=== PATIENT | female | born 1940 | race Caucasian/White ===

== ENCOUNTER 2020-09-05 00:36 | Emergency (ER) | payer MEDICARE, MEDICAID, SELFPAY ==
[2020-09-05 00:42] VITALS: BP 126/68; PULSE 96; RESP 16; O2SAT 96; BMI 24.5
--- NOTE | 2020-09-05 00:46 | ECG_ITS ---
Test Reason : FALL Blood Pressure : / mmHG Vent. Rate : 097 BPM Atrial Rate : 097 BPM P-R Int : 218 ms QRS Dur : 084 ms QT Int : 372 ms P-R-T Axes : 050 003 052 degrees QTc Int : 472 ms Sinus rhythm with 1st degree A-V block Otherwise normal ECG When compared with ECG of 16-JUN-2016 14:58, IN interval has increased Referred By: Karla Houston Electronically Signed By:ALISON JHA
--- NOTE | 2020-09-05 00:46 | XR_ITS ---
EXAMINATION: XR SHOULDER, RIGHT CLINICAL INFORMATION: Fall COMPARISON: None TECHNIQUE: Three views of the right shoulder. FINDINGS: Glenohumeral alignment is anatomic. No acute fracture is seen. Acromioclavicular joint is intact. XR/XR shoulder RT min 2V IMPRESSION: No acute findings.
--- NOTE | 2020-09-05 00:46 | XR_ITS ---
EXAMINATION: XR WRIST, RIGHT CLINICAL INFORMATION: Fall COMPARISON: None TECHNIQUE: PA, lateral, and oblique views of the right wrist. FINDINGS: There is a mildly impacted fracture of the distal radius with dorsal angulation. Intra-articular extension cannot be excluded. Surrounding soft tissue swelling is present. Articular alignment across the wrist appears maintained. XR/XR wrist RT min 3V IMPRESSION: Mildly impacted and angulated fracture of the distal radius with surrounding soft tissue swelling.
--- NOTE | 2020-09-05 00:46 | CT_ITS ---
EXAMINATION: NONCONTRAST HEAD CT NONCONTRAST CERVICAL SPINE CT INDICATION INFORMATION: Fall COMPARISON: 06/16/2016 TECHNIQUE: Separate noncontrast CT examinations of the head and cervical spine were performed. Coronal head CT images and coronal and sagittal cervical spine images were created at the technologist workstation. DLP: 854 mGy-cm DOSE LOWERING TECHNIQUES: This CT examination was performed using dose optimization techniques as appropriate, variously including the following: - Automated exposure control - Adjustment of mA and/or kV according to patient size (this includes techniques or standardized protocols for targeted exams were dose is matched to indication/reason for exam; i.e. extremities or head) - Use of iterative reconstruction technique FINDINGS: Head: There is no evidence of acute intracranial hemorrhage or territorial infarction. No abnormal mass-effect or midline shift is seen. Manriquez to white matter differentiation is well preserved. No extra-axial fluid collections are identified. The ventricles are normal in size. There is mild periventricular white matter hypoattenuation consistent with chronic small vessel ischemic disease. Mild volume loss is noted. The osseous structures and soft tissues are normal. The mastoid air cells and visualized portions of the paranasal sinuses are well-aerated. Cervical spine: There is grade 1 anterolisthesis of C3 on C4 and grade 1 retrolisthesis of C5 on C6 is an C6 on C7, favored to be chronic/degenerative in nature. There is disc space narrowing of the mid to lower cervical spine with associated endplate osteophytes. Mild multilevel facet arthropathy is present. Vertebral body heights are maintained. No evidence of acute fracture. No prevertebral soft tissue swelling. The included thyroid gland is unremarkable. CT/CT cervical spine wo con IMPRESSION: 1. Head: No acute intracranial findings. 2. Cervical spine: No acute findings identified. Degenerative changes as described above.
--- NOTE | 2020-09-05 00:46 | XR_ITS ---
EXAMINATION: XR HUMERUS, RIGHT CLINICAL INFORMATION: Fall COMPARISON: None TECHNIQUE: AP and lateral views of the right humerus. FINDINGS: Alignment appears anatomic. No acute fracture is seen. No appreciable soft tissue abnormality. XR/XR humerus RT IMPRESSION: No acute findings.
--- NOTE | 2020-09-05 00:47 | ED_ITS ---
HPI - Fall General Chief Complaint: Fall Stated Complaint: fall Time Seen by Provider: 09/05/20 00:46 Source: patient and EMS Mode of arrival: EMS Limitations: other (ETOH and agitation) History of Present Illness HPI Narrative: + ETOH 79 year old female c/o fall not sure how reports I think I blacked out has bruising to R forehead no AC therapy and c/o R upper arm and R wrist pain which is her dominant side, no other injuries reported MD complaint: fall Onset (ago): hour(s) (not sure but sometime tonight per her) Fall from: standing Place fall occurred: home Loss of consciousness: unsure Prolonged down time: unclear Symptoms prior to fall: none Location of injury: head and face Location of injury - extremities: right: arm and forearm Severity: moderate Quality: dull Associated symptoms (after fall): denies Related Data Previous Rx's Medication Instructions Recorded hydrocodone-acetaminophen 1 tab PO Q6H PRN #15 tab 09/05/20 Allergies Allergy/AdvReac Type Severity Reaction Status Date / Time alendronate sodium [Fosamax] Allergy Unknown Verified 05/16/19 00:00 ciprofloxacin [Cipro] AdvReac Unknown blister Verified 05/16/19 00:00 lisinopril AdvReac Unknown throat Verified 05/16/19 00:00 swelling, cough From CIPRO Allergy Unknown BLISTERS Uncoded 04/30/20 14:34 IN MOUTH From ELAVIL AdvReac Unknown HALLUCINATI Uncoded 04/30/20 14:34 ONS Review of Systems Review of Systems: Constitutional : No Fever, No Chills ENT/Mouth : No Ear Pain, No Hoarseness, No sore throat Eyes: No Eye Pain, No Swelling, No Redness, No Foreign Body Cardiovascular : No Chest Pain, No SOB Respiratory : No Cough, No Dyspnea Gastrointestinal : No Nausea, No Vomiting, No Diarrhea, No abdominal Pain Genitourinary : No Dysuria, No Hematuria Musculoskeletal : positive joint pain, No Myalgias, No Joint Swelling Skin : No Skin lacerations, No rash Neuro : No Weakness, No Numbness, No Loss of Consciousness, No Dizziness, No Headache Psych : No Anxiety/Panic, No Depression Heme/Lymph: no easy bruising, no Lymphadenopathy Endocrine : No Polyuria, No Polydipsia All other systems reviewed and are negative PMFSH Past Medical History Medical History (Updated 09/05/20 @ 03:18 by Karla Houston DO) Anxiety Surgical History (Updated 09/05/20 @ 00:50 by Karla Houston DO) H/O: hysterectomy Social History Social History (Updated 09/05/20 @ 00:50 by Karla Houston DO) Alcohol intake: current Alcohol intake frequency: 0-2 drinks per day Alcohol type: hard liquor Smoking Status: Current every day smoker Smoked in Last 30 Days: Yes Use of substances other than those prescribed or required for medical reasons: No Advance Directives: No Advance Directives Information Provided: No Physical Exam Vital Signs: Vital Signs: Last Vital Signs Pulse 96 09/05/20 00:56 Resp 16 09/05/20 00:56 BP 126/68 09/05/20 00:56 Pulse Ox 96 09/05/20 00:56 Body Mass Index 24.5 Appearance: Alert. Oriented X3. No acute distress. ETOH odor, intermittent agitation Eyes: Pupils equal, round and reactive to light. ENT: Pharynx normal. contusion to R forehead and R eyebrow Neck: Normal inspection. Neck supple. CVS: Normal heart rate and rhythm. Pulses normal. Respiratory: No respiratory distress. Breath sounds normal. Abdomen: Soft and nontender. Skin: Skin warm and dry. Normal skin color. Normal skin turgor. Extremities: No lower extremity edema. No calf ttp no pain with ROM of LE, álvaro n at R wrist with deformity - NV intact, ttp along R humerus Neuro: Oriented X 3. No motor deficit. No sensory deficit. Course Course Course Narrative: GCS 15 likely fall due to ETOH intoxication - offered rehab but she refused. awake and alert, not toxic, clinically sober, unsteady gait - PATIENT finally agrees to rehab signed out pending PT/CM Procedures Orthopedic Splinting/Casting Injury #1: Side: right Upper Extremity Injury Location: wrist Upper Extremity Immobilizer: sling/shoulder immobilizer and sugar tong splint Additional Comments: NV intact post splint MDM - Fall MDM Narrative Medical decision making narrative: 79 yo female with ETOH tonight comes in after fall unsure of events - at this time has contusions to head and R wrist def ormity - will need labs, EKG, CT head/neck for trauma given age and ETOH, xrays of RUE - NV intact, suspect she will need reduction as well in ED Lab Data Result diagrams: 09/05/20 02:25 09/05/20 02:25 Labs: Lab Results 09/05/20 09/05/20 09/05/20 Range/Units 02:25 02:25 02:26 WBC 6.9 (4.8-10.8) X10*3/uL RBC 4.82 (4.20-5.50) X10*6/uL Hgb 16.3 H (12.0-16.0) g/dl Hct 46.8 (37-47) % MCV 97.1 (80-98) fL MCH 33.8 H (27.0-33.0) pg MCHC 34.8 (31.0-35.0) g/dl RDW 13.2 (11.0-16.0) % Plt Count 177 (160-400) X10*3/uL MPV 10.1 (9.4-12.3) fL Immature Gran % (Auto) 0.3 (0.0-0.4) % Neut % (Auto) 75.4 H (45-73) % Lymph % (Auto) 16.3 L (20-40) % Bladen % (Auto) 7.0 (2-11) % Eos % (Auto) 0.6 (0-4) % Baso % (Auto) 0.4 (0-2) % Lymph # (Auto) 1.1 L (1.2-4.9) X10*3/uL Bladen # (Auto) 0.5 (0.1-1.2) X10*3/uL Eos # (Auto) 0.0 (0.0-0.4) X10*3/uL Baso # (Auto) 0.0 (0.0-0.2) X10*3/uL Abs Immat Gran (auto) 0.02 (0.00-0.03) X10*3/uL Absolute Neuts (auto) 5.2 (2.0-8.3) X10*3/uL Absolute Nucleated RBC 0.000 (0.0-0.012) X10*3/uL Nucleated RBC % (auto) 0.0 (0.0-0.2) /100WBC PT (10.8-13.0) SEC INR (0.9-1.1) APTT (24.1-38.0) SEC Sodium 134 L (135-145) mmol/L Potassium 4.1 (3.3-5.1) mmol/l Chloride 98 (96-108) mmol/L Carbon Dioxide 22 (22-29) mmol/L Anion Gap 18 (12-20) BUN 7 L (9-16) mg/dL Creatinine 0.71 (0.5-1.4) mg/dL Estim Creat Clear Calc 53.8 Estimated GFR > 60 Random Glucose 93 (60-115) mg/dL Calcium 9.1 (8.4-10.2) mg/dL Magnesium 2.4 (1.6-2.6) mg/dL Total Bilirubin 0.6 (0.0-1.0) mg/dL Direct Bilirubin 0.3 (0.0-0.5) mg/dL AST 43 H (5-31) U/L ALT 31 (0-31) U/L Alkaline Phosphatase 95 (39-117) U/L Total Creatine Kinase 114 (26-140) U/L Troponin I High Sens (<3.5-17.0) ng/L Total Protein 7.9 (6.5-8.0) g/dL Albumin 4.1 (3.5-5.0) g/dL Ethyl Alcohol 115 mg/dL 09/05/20 09/05/20 Range/Units 02:26 02:26 WBC (4.8-10.8) X10*3/uL RBC (4.20-5.50) X10*6/uL Hgb (12.0-16.0) g/dl Hct (37-47) % MCV (80-98) fL MCH (27.0-33.0) pg MCHC (31.0-35.0) g/dl RDW (11.0-16.0) % Plt Count (160-400) X10*3/uL MPV (9.4-12.3) fL Immature Gran % (Auto) (0.0-0.4) % Neut % (Auto) (45-73) % Lymph % (Auto) (20-40) % Bladen % (Auto) (2-11) % Eos % (Auto) (0-4) % Baso % (Auto) (0-2) % Lymph # (Auto) (1.2-4.9) X10*3/uL Bladen # (Auto) (0.1-1.2) X10*3/uL Eos # (Auto) (0.0-0.4) X10*3/uL Baso # (Auto) (0.0-0.2) X10*3/uL Abs Immat Gran (auto) (0.00-0.03) X10*3/uL Absolute Neuts (auto) (2.0-8.3) X10*3/uL Absolute Nucleated RBC (0.0-0.012) X10*3/uL Nucleated RBC % (auto) (0.0-0.2) /100WBC PT 12.8 (10.8-13.0) SEC INR 1.1 (0.9-1.1) APTT 38.5 H (24.1-38.0) SEC Sodium (135-145) mmol/L Potassium (3.3-5.1) mmol/l Chloride (96-108) mmol/L Carbon Dioxide (22-29) mmol/L Anion Gap (12-20) BUN (9-16) mg/dL Creatinine (0.5-1.4) mg/dL Estim Creat Clear Calc Estimated GFR Random Glucose (60-115) mg/dL Calcium (8.4-10.2) mg/dL Magnesium (1.6-2.6) mg/dL Total Bilirubin (0.0-1.0) mg/dL Direct Bilirubin (0.0-0.5) mg/dL AST (5-31) U/L ALT (0-31) U/L Alkaline Phosphatase (39-117) U/L Total Creatine Kinase (26-140) U/L Troponin I High Sens < 3.5 (<3.5-17.0) ng/L Total Protein (6.5-8.0) g/dL Albumin (3.5-5.0) g/dL Ethyl Alcohol mg/dL ECG Data Attestation: I personally reviewed and interpreted this ECG as follows: ECG interpretation date: 09/05/20 ECG interpretation time: 01:12 Interpretation: Rate: 97 Rhythm: NSR with 1st degree AVB [place]: left Normal P waves. 1st degree AVB Normal QRS complex. ST T wave : normal, no JEANNINE qTC: normal prior studies: no acute ischemia The study has been interpreted contemporaneously by me. . Discharge Plan Discharge Clinical Impression: Fracture of wrist, Fall, Alcohol intoxication Instructions: Wrist Fracture in Adults (ED) Additional Instructions: return to ED for any worsening symptoms or concerns wear splint and sling until released Prescriptions: New hydrocodone-acetaminophen 5-325 mg tablet 1 tab PO Q6H PRN (Reason: pain) Qty: 15 RF: 0 Referrals: Jason Galvan PA-C [Phys[facility]] - 1 week
--- NOTE | 2020-09-05 00:47 | XR_ITS ---
EXAMINATION: XR CHEST CLINICAL INFORMATION: Fall COMPARISON: 06/16/2016 TECHNIQUE: Frontal view of the chest was obtained. FINDINGS: Lung volumes are symmetric. No focal consolidation is seen. No evidence of pneumothorax, pleural effusion, or pulmonary edema. The cardiomediastinal contour is unremarkable. No acute osseous findings are seen. XR/XR chest 1V IMPRESSION: No acute cardiopulmonary findings.
[2020-09-05 00:56] VITALS: BP 126/68; PULSE 96; RESP 16; O2SAT 96
[2020-09-05 02:32] LABS: MANUAL DIFF FLAG NO
[2020-09-05 02:33] LABS: Basophils Percent Auto 0.4 % (0-2); Eosinophils Percent Auto 0.6 % (0-4); Hematocrit 46.8 % (37-47); Hemoglobin 16.3 g/dl (12.0-16.0); Imm Gran Abs Auto 0.02 X10*3/uL (0.00-0.03); Imm Gran Pct Auto 0.3 % (0.0-0.4); Lymphocytes Absolute Auto 1.1 X10*3/uL (1.2-4.9); Lymphocytes Percent Auto 16.3 % (20-40); Mean Corpuscular HGB Conc 34.8 g/dl (31.0-35.0); Mean Corpuscular Hemoglobin 33.8 pg (27.0-33.0); Mean Corpuscular Volume 97.1 fL (80-98); Mean Platelet Volume 10.1 fL (9.4-12.3); Monocytes Absolute Auto 0.5 X10*3/uL (0.1-1.2); Neutrophils Absolute Auto 5.2 X10*3/uL (2.0-8.3); Neutrophils Percent Auto 75.4 % (45-73); Platelet Count 177 X10*3/uL (160-400); Red Blood Count 4.82 X10*6/uL (4.20-5.50); Red Cell Distribution Width 13.2 % (11.0-16.0); White Blood Count 6.9 X10*3/uL (4.8-10.8)
[2020-09-05 02:38] LABS: INTERNATIONAL NORM RATIO 1.1 (0.9-1.1); Prothrombin Time 12.8 SEC (10.8-13.0)
[2020-09-05 02:41] LABS: Partial Thromboplastin Time 38.5 SEC (24.1-38.0)
[2020-09-05 02:59] LABS: Alanine Aminotransferase 31 U/L (0-31); Albumin Level 4.1 g/dL (3.5-5.0); Alkaline Phosphatase 95 U/L (39-117); Anion Gap 18 (12-20); Aspartate Amino Transferase 43 U/L (5-31); Bilirubin Direct 0.3 mg/dL (0.0-0.5); Bilirubin Total 0.6 mg/dL (0.0-1.0); Blood Urea Nitrogen 7 mg/dL (9-16); Calcium 9.1 mg/dL (8.4-10.2); Carbon Dioxide 22 mmol/L (22-29); Chloride 98 mmol/L (96-108); Creatinine Clr Calc Pharmacy 53.8; Estimated Glomerular Filt Rate > 60; Glucose Random 93 mg/dL (60-115); Magnesium 2.4 mg/dL (1.6-2.6); Potassium 4.1 mmol/l (3.3-5.1); Sodium 134 mmol/L (135-145); Total Protein 7.9 g/dL (6.5-8.0)
[2020-09-05 03:02] LABS: Troponin-I High Sensitivity < 3.5 ng/L (<3.5-17.0)
[2020-09-05 03:17] LABS: Ethanol 115 mg/dL
--- NOTE | 2020-09-05 07:28 | PC.NURSE ---
report taken from ozzie gregory pt uncomfortable in stretcher, assisted to bedside commode for void. pt sling assessed for comfort, readjusted. pt c/o pain and anxiety, consulted w md about meds. pt appears to not have had imaging post splinting of wrist, dr stanford at bedside for eval. plan for ortho consult and inpt admission. medicated per emar. pt ate breakfast w assistance.
[2020-09-05] MEDS: ALPRAZolam 0.5 MG TABLET PO (07:32)
[2020-09-05] MEDS: oxyCODONE HCl Immed Release 5 MG TABLET PO (07:32)
[2020-09-05] MEDS: Lidocaine HCl 2 % MPF 5 ML VIAL 10 ML INFILTRATI (08:25)
--- NOTE | 2020-09-05 08:34 | XR_ITS ---
EXAMINATION: XR WRIST, RIGHT CLINICAL INFORMATION: Wrist fracture status post reduction. COMPARISON: Prereduction radiograph done earlier today. TECHNIQUE: 2 views, 3 images of the right wrist were obtained. FINDINGS: Moderate diffuse osteopenia is noted. Comminuted the fracture involving the right distal radius is reidentified. Compared to prior prereduction radiographs, there is slight interval improved dorsal angulation present. No other significant interval change. No new abnormalities. XR/XR hand wrist RT IMPRESSION: Mild interval improvement of dorsal angulation at the site of the comminuted fracture involving the distal radius as compared to prior prereduction radiograph done earlier today. No other significant interval change.
--- NOTE | 2020-09-05 08:53 | PC.NURSE ---
pt splint removed, wrist fracture reduced by dr stanford at bedside. post reduction imaging at bedside, pt seen by phys tx. splint reapplied by this rn and dr stanford.
--- NOTE | 2020-09-05 09:37 | MHC.CM.ED ---
Received case management consult overnight. Patient came to ER after a fall. Found to have a wrist fracture. Physical therapy eval completed. Home therapy is recommended. Met with patient in regards to discharge planning. Patient lives alone, ambulates with a cane for long distances and receives home making help through [facility]. PCP verbalized as Vijay Serrano. Patient states she has a HCP but doesn't know where a copy of it is. New HCP offered to be completed. Patient declined at this time. Patient requesting referrals to [facility]. Referral made via [employer]. Spoke with patient's son-in-law, Ricki via telephone at [phone]. He will come to ER around 10:30am to transport patient home. Patient, Dr Lopez, and Wenceslao BENNETT aware. Continue to monitor for d/c needs.
[2020-09-05 10:11] VITALS: BP 126/68; PULSE 96; O2SAT 96
== END 2020-09-05 10:37 | disposition home or self-care (01) ==
PROVIDERS: Emergency Provider Emergency Medicine; PCP Nurse Practitioner Family
DX: S62.101A Fracture of unspecified carpal bone, right wrist, initial encounter for closed fracture (principal); M25.531 Pain in right wrist; M79.601 Pain in right arm; M54.2 Cervicalgia; M79.641 Pain in right hand; R07.89 Other chest pain; G44.309 Post-traumatic headache, unspecified, not intractable; M25.511 Pain in right shoulder; W01.0XXA Fall on same level from slipping, tripping and stumbling without subsequent striking against object, initial encounter; Y93.9 Activity, unspecified; Y92.9 Unspecified place or not applicable; Y99.9 Unspecified external cause status; F17.200 Nicotine dependence, unspecified, uncomplicated; Z71.6 Tobacco abuse counseling
CPT/HCPCS: 29105; 36415; 70450; 71045; 72125; 73030; 73060; 73110; 73130; 80048; 80076; 80320; 82550; 83735; 84484; 85025; 85610; 85730; 93005; 97162; 99284

== ENCOUNTER → 2020-09-11 13:18 | Outpatient (BNVA) | payer OTHER, MEDICAID, SELFPAY | PROVIDERS: PCP Internal Medicine; Visit Provider Physician Assistant | DX: Z13.89 Encounter for screening for other disorder (principal) | CPT/HCPCS: 99202 ==

== ENCOUNTER 2020-09-16 11:15 | Day surgery (SDC) | payer OTHER, MEDICAID, SELFPAY ==
[2020-09-16 07:53] VITALS: BMI 24.2
[2020-09-16 11:27] VITALS: BP 158/74; PULSE 90; RESP 20; TEMP 36.4; O2SAT 95; BMI 23.1
--- NOTE | 2020-09-16 13:32 | HO.ANESPROP2 ---
HPI - Anesthesia Eval Consult details Narrative: 79yo female patient here for ORIF of fracture Right Distal Radius PMFSH Past Medical History Medical History Alcohol use disorder Anxiety Distal radius fracture, right Essential hypertension Hyperlipidemia Osteoporosis Right patella fracture Smoker Family History Family history of problems with anesthesia: No Surgical History Surgical History H/O right knee surgery H/O: hysterectomy History of Problems with Anesthesia: No Social History Social History (Updated 09/16/20 @ 14:20 by Faith Torrez) Alcohol intake: current Alcohol intake frequency: 0-2 drinks per day Alcohol type: hard liquor Smoking Status: Current every day smoker Smoked in Last 30 Days: Yes Use of substances other than those prescribed or required for medical reasons: No Have you been hit, kicked, punched, or otherwise hurt by someone within the past year? 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 Allergies Allergy/AdvReac Type Severity Reaction Status Date / Time alendronate sodium [Fosamax] Allergy Unknown Verified 05/16/19 00:00 ciprofloxacin [Cipro] AdvReac Unknown blister Verified 05/16/19 00:00 lisinopril AdvReac Unknown throat Verified 05/16/19 00:00 swelling, cough From CIPRO Allergy Unknown BLISTERS Uncoded 04/30/20 14:34 IN MOUTH From ELAVIL AdvReac Unknown HALLUCINATI Uncoded 04/30/20 14:34 ONS Home Medications Medication Instructions Recorded Confirmed Type amlodipine 5 mg tablet 5 mg PO DAILY 09/09/20 09/09/20 History atorvastatin 10 mg tablet 10 mg PO DAILY 09/09/20 09/09/20 History calcium carbonate 600 mg calcium 600 mg PO DAILY 09/09/20 09/09/20 History (1,500 mg) tablet alprazolam [Xanax] 0.5 mg PO BID PRN 09/16/20 09/16/20 History naproxen sodium [Aleve] 220 mg PO Q12H PRN 09/16/20 09/16/20 History Exam Pertinent Lab Results Pertinent Lab Results: Labs reviewed. 12 lead EKG 09/05/2020: Sinus rhythm with 1st degree A-V block Otherwise normal ECG When compared with ECG of 16-JUN-2016 14:58, UT interval has increased Airway Mallampati Class: III TM Dist: >3cm Neck ROM: Full Loose/Missing/Broken Teeth: No Heart: RRR Lungs: CTAB Assessment and Plan Assessment Anesthesia Assessment: Anesthesia Plan Discussed and Chart Reviewed Final Anesthetic Review NPO: Yes ASA Class: III Final Preanesthetic Review: No Changes in Pt Med Stat, Meds/Allgs Chart Reviewed, Consent Obtained/Reviewed and Anes Risks/Benef Reviewed Patient Risk: Intermediate Procedure Risk: Low Assessment/Block/Sedation in SS: Assess/Block/Sedation-SS Anesthetic Plan Anesthetic Plan: GA Disposition: Standard PACU
--- NOTE | 2020-09-16 14:14 | FL_ITS ---
EXAMINATION: XR FLUOROSCOPY WITH IMAGES CLINICAL INFORMATION: ORIF right distal radius fracture COMPARISON: Right wrist x-ray 09/05/2020 TECHNIQUE: Fluoroscopy performed by Martina. Fluoroscopy time: 22 seconds DAP: 0.03 Gycm2 Images: 2 FINDINGS: There is a volar plate plate and screws transfixing the right distal radius fracture with improved alignment. FL/FL guidance in OR IMPRESSION: Fluoroscopic guidance for ORIF of right distal radius fracture.
--- NOTE | 2020-09-16 14:24 | MHC.SHP ---
Pre-Procedural Eval Section B Chief Complaint: radius fx Allergies: Allergies Allergy/AdvReac Type Severity Reaction Status Date / Time alendronate sodium [Fosamax] Allergy Unknown Verified 05/16/19 00:00 ciprofloxacin [Cipro] AdvReac Unknown blister Verified 05/16/19 00:00 lisinopril AdvReac Unknown throat Verified 05/16/19 00:00 swelling, cough From CIPRO Allergy Unknown BLISTERS Uncoded 04/30/20 14:34 IN MOUTH From ELAVIL AdvReac Unknown HALLUCINATI Uncoded 04/30/20 14:34 ONS Plan I have reviewed the history and physical and performed a pertinent physical examination on my patient. No changes have occurred unless specified.
[2020-09-16 16:17] VITALS: BP 156/80; PULSE 84; RESP 16; TEMP 36.7; O2SAT 98
[2020-09-16 16:22] VITALS: BP 157/70; PULSE 84; RESP 16; O2SAT 95
[2020-09-16 16:27] VITALS: BP 155/72; PULSE 88; RESP 16; O2SAT 94
[2020-09-16 16:32] VITALS: BP 127/91; PULSE 87; RESP 18; O2SAT 93
[2020-09-16 16:45] VITALS: BP 161/85; PULSE 86; RESP 16; O2SAT 94
--- NOTE | 2020-09-16 17:01 | P.OP_ITS ---
Operative Note Operative Note Date of Service: 09/16/20 Narrative: Operative Note Narrative: Preop diagnosis: 1. Right Distal radius fracture Postop diagnosis: Same Procedure: 1. Right Distal radius fracture open reduction internal fixation, extra-articular Surgeon: Geri Mack MD Anesthesia: Mac plus regional block Findings: Right distal radius metaphyseal fracture Implants: A 3 hole Accu Med volar locking plate, with four 2.3 mm locking pegs/screws, and 3 3.5 mm cortical screws Tourniquet time: 44 minutes EBL: 5.0 ml Specimen: None Drains: None Complications: None Disposition: Brought to the recovery room in stable condition Plan: Follow-up in 10-14 days for wound check, suture removal and postop radiographs The patient will be placed in either a short-arm cast or a volar wrist splint. Encouraged no lifting of anything heavier than a cell phone. Please encourage active and passive range of motion of the digits. Follow-up at 4-5 weeks postop for repeat radiographs. Indications: The patient is a 79 year old woman with a displaced right distal radius fracture . The risks and benefits of operative treatment, including but not limited to risk of damage to blood vessels, nerves, tendons, infection, recurrence, persistent pain or numbness, incomplete resolution of preoperative symptoms, or need for further surgery were discussed with the patient and they wished to proceed with surgery. Procedure: Once consent was obtained patient was brought back to the operating suite and placed in the operating table in a supine position. . Perioperative antibiotics and anesthesia was administered by the anesthesia team. A tour niquet was applied to the proximal aspect of the right upper extremity and the limb was prepped and draped in a standard surgical fashion. The limb was elevated exsanguinated with Esmarch bandage and the tourniquet inflated to 250 mm of mercury for a total tourniquet time of 44 minutes. The FluoroScan was used throughout the case to assess our reduction, and facilitate implant placement. A gentle closed reduction was 1st performed on the patient's right distal radius fracture. Was assessed radiographically before proceeding with the reduction internal fixation. I then made an 8 cm longitudinal incision over the distal aspect of the flexor carpi radialis tendon. The incision was made through the skin to the subcutaneous tissue using a 15. Blade. Then carefully dissected down to flexor carpi radialis tendon she tenotomy scissors. The FCR tendon sheath was then incised longitudinally using tenotomy scissors under direct visualization. The FCR tendon was then retracted ulnarly. I then made a longitudinal incision in the volar forearm fascia through the floor of FCR tendon sheath using tenotomy scissors under direct visualization. I identified the interval between the radial artery and the flexor tendons. This interval was developed further with my index finger, releasing some of the muscular fibers of the flexor pollicis longus. A dull weatlander retractor was then placed. I then created an ulnarly based flap of the pronator quadratus by releasing the radial and distal edges using a 15. Blade. A Witt elevator was used to elevate the pronator quadratus from the volar surface of the distal radius. This then revealed to us our distal radius fracture. An open reduction was then performed on our distal radius fracture. I then placed a short narrow 3 hole Accu Med volar locking plate on the volar surface of the distal radius. I placed a single K-wire through the distal aspect of the plate and into the distal radius. This was assessed using fluoroscopic images. I was satisfied with the placement of our plate. I then placed four 2.3 mm locking screws/pegs in the distal aspect of the plate and distal radius by 1st drilling bicortically with a 1.5 mm drill bit, measuring with a depth gauge, and placing the appropriate length locking screws/pegs. The placement of our plate and screws was then assessed again using fluoroscopic images. The once sa tisfied with the placement of the volar locking plate and screws on the distal aspect of the distal radius, the plate was then reduced to the shaft of the radius. I then placed 3 3.5 mm cortical screws to the proximal aspect of the plate and into the shaft of the radius. This was done by 1st drilling bicortically with a 2.5 mm drill bit, measuring with a depth gauge, and placing the appropriate length screw. Final radiographs were then obtained. The DRUJ was assessed and found to be stable on exam. I was satisfied with our reduction and placement of all implants. At this point the wound was irrigated with normal saline. The pronator quadratus was reduced back over the volar locking plate using some 3-0 Vicryl suture material. The tourniquet was then deflated and hemostasis was obtained with a brief period of local pressure and bipolar monopolar electrocautery. The subcutaneous layer was then reapproximated using some 4-0 Vicryl suture, and the skin edges were reapproximated using some 5 0 Prolene suture. The wound was then infiltrated with some 1% lidocaine with epinephrine postop pain control. A sterile dressing and a short dorsal splint allowing for active flexion and extension of the digits was applied. The patient appears to have tolerated the procedure well and with no complications. All digits were well vascularized conclusion of the case.
--- NOTE | 2020-09-16 17:04 | PC.NURSE ---
1650 REQ TO USE BR MONITORS DCD ASST OOB 2 RNS TO TR TO WC STS SHE HAS DIZZY SPELLS AND THATS WHAT HAPPENED TO HER AT HOME FOR THE BREAK IN HER ARM. PT CONTINUES TO TALK NONSTOP TO BR ASST ONTO TOILET 1 RN
--- NOTE | 2020-09-16 17:29 | PC.NURSE ---
1700 VOID CL YELLOW URINE BR ASST WITH HAND HYGIENE TR TO WC RET TO PACU 11 TOTAL CLOTHING CHANGE BY THIS RN AND IV DC. DR NGUYỄN IN AT 1720 SPEAKING TO PT RE CARE OF SPLINT ICE ETC, 2 ICE PACKS GIVEN TO GO PT INSTR TO TAKE HER LISINOPRIL WHEN SHE GETS HOME. PT STS SHE RARELY TAKES IT.
== END 2020-09-16 17:30 | disposition home or self-care (01) ==
PROVIDERS: Visit Provider Orthopaedic Surgery
PROC: (CPT 25607; principal; 2020-09-16 12:40)
DX: S52.551A Other extraarticular fracture of lower end of right radius, initial encounter for closed fracture (principal); W01.0XXA Fall on same level from slipping, tripping and stumbling without subsequent striking against object, initial encounter; Y93.01 Activity, walking, marching and hiking; Y92.008 Other place in unspecified non-institutional (private) residence as the place of occurrence of the external cause; Y99.8 Other external cause status; F41.9 Anxiety disorder, unspecified; Z72.89 Other problems related to lifestyle; I10 Essential (primary) hypertension; M81.0 Age-related osteoporosis without current pathological fracture; F17.210 Nicotine dependence, cigarettes, uncomplicated; E78.5 Hyperlipidemia, unspecified; Z79.899 Other long term (current) drug therapy; Z88.1 Allergy status to other antibiotic agents; Z88.8 Allergy status to other drugs, medicaments and biological substances
CPT/HCPCS: 25607; C1713; C1769; J0690; J1100; J1170; J2370; J2405; J3010

== ENCOUNTER 2020-09-30 12:43 | Outpatient (REF) | payer OTHER, MEDICAID, SELFPAY ==
--- NOTE | ~2020-09-30 | XR_ITS ---
EXAMINATION: XR WRIST, RIGHT CLINICAL INFORMATION: Right wrist pain. COMPARISON: Right wrist radiographs dated 09/05/2020. TECHNIQUE: PA, lateral, and oblique views of the right wrist. FINDINGS: The patient is status post distal radial ORIF showing good anatomic alignment with no evidence for hardware malfunction. The carpal bones are normally aligned. The distal ulna is intact. There is mild soft tissue swelling. XR/XR wrist RT min 3V IMPRESSION: Good anatomic alignment without hardware abnormality. Soft tissue swelling.
== END 2020-09-30 12:44 | disposition home or self-care (01) ==
LOC: HO.HOSX 12:43
PROVIDERS: Visit Provider Orthopaedic Surgery
DX: S52.501A Unspecified fracture of the lower end of right radius, initial encounter for closed fracture (principal); F17.200 Nicotine dependence, unspecified, uncomplicated
CPT/HCPCS: 73110

== ENCOUNTER 2020-10-26 12:14 | Outpatient (REF) | payer OTHER, MEDICAID, SELFPAY ==
--- NOTE | ~2020-10-26 | XR_ITS ---
EXAMINATION: XR WRIST, RIGHT CLINICAL INFORMATION: Follow-up fracture COMPARISON: Previous x-ray most recent 09/30/2020 TECHNIQUE: PA, lateral, and oblique views of the right wrist. FINDINGS: There is a volar plate and screws transfixing the left distal radius fracture. Orthopedic hardware appears unchanged. Fracture lines are still seen. Bone alignment is unchanged. There are mild degenerative changes at the first [facility] joint. Carpal bones are otherwise normal. Soft tissues are normal. XR/XR wrist RT min 3V IMPRESSION: ORIF of right distal radius fracture. No change from 09/30/2020 exam.
== END 2020-10-26 12:15 | disposition home or self-care (01) ==
LOC: HO.HOSX 12:14
PROVIDERS: Visit Provider Orthopaedic Surgery
DX: M25.531 Pain in right wrist (principal); S52.501A Unspecified fracture of the lower end of right radius, initial encounter for closed fracture; X58.XXXA Exposure to other specified factors, initial encounter; Y93.9 Activity, unspecified; Y92.9 Unspecified place or not applicable; Y99.8 Other external cause status; M81.0 Age-related osteoporosis without current pathological fracture; I10 Essential (primary) hypertension; F41.9 Anxiety disorder, unspecified; E78.5 Hyperlipidemia, unspecified; F17.200 Nicotine dependence, unspecified, uncomplicated; Z88.8 Allergy status to other drugs, medicaments and biological substances
CPT/HCPCS: 73110

== ENCOUNTER → 2020-12-29 13:18 | Outpatient (REF) | payer OTHER, MEDICAID, SELFPAY ==
--- NOTE | 2020-12-29 13:35 | ECG_ITS ---
Hook-up date: 2020-12-29 13:40:00 Duration: 43:08:00 Test Indications: DIZZINESS Medications: [id number] QRS complexes * Ventricular ectopics which represent % of total QRS comp. 4 Supraventricular ectopics which represent <1 % of total QRS comp. * Paced QRS complexs which represent % of total QRS comp. VENTRICULAR ECTOPY * Isolated * Bigeminal Cycles * Couplets * Runs * Beats in Runs * Beats LONGEST at * BPM at :: -- * Beats FASTEST at * BPM at :: -- SUPRAVENTRICULAR ECTOPY 4 Isolated 0 Couplets 0 Runs 0 Beats in Runs * Beats LONGEST at * BPM at :: -- * Beats FASTEST at * BPM at :: -- HEART RATES 56 MIN at 12:24:18 2020-12-30 85 AVG 134 MAX at 13:43:37 2020-12-29 LONGEST RR 1.1920 secs at 12:24:16 2020-12-30 S-T LEVELS Channel 1 - 128 mm at 13:40:00 2020-12-29 - 128 mm at 13:40:00 2020-12-29 Channel 2 - 128 mm at 13:40:00 2020-12-29 - 128 mm at 13:40:00 2020-12-29 Channel 3 - 128 mm at 03:25:91 -- - 128 mm at 03:25:91 Underlying rhythm is sinus; Average rate 85/min; About 19% of the rate >100/min; Very rare PACs; Patient did not report any symptoms in the diary Referred By: Vijay Serrano Overread By: ALISON JHA
== END ==
LOC: HO.CARD 13:18
PROVIDERS: Visit Provider Nurse Practitioner Family
DX: R42 Dizziness and giddiness (principal)
CPT/HCPCS: 93226

== ENCOUNTER 2021-04-02 12:50 | Outpatient (REF) | payer OTHER, MEDICAID, SELFPAY ==
[2021-04-02 13:59] LABS: MANUAL DIFF FLAG NO
[2021-04-02 14:05] LABS: Basophils Percent Auto 0.5 % (0-2); Eosinophils Absolute Auto 0.1 X10*3/uL (0.0-0.4); Eosinophils Percent Auto 2.4 % (0-4); Hematocrit 50.2 % (37-47); Hemoglobin 17.3 g/dl (12.0-16.0); Imm Gran Abs Auto 0.02 X10*3/uL (0.00-0.03); Imm Gran Pct Auto 0.3 % (0.0-0.4); Lymphocytes Absolute Auto 2.3 X10*3/uL (1.2-4.9); Lymphocytes Percent Auto 39.2 % (20-40); Mean Corpuscular HGB Conc 34.5 g/dl (31.0-35.0); Mean Corpuscular Hemoglobin 33.8 pg (27.0-33.0); Mean Platelet Volume 10.2 fL (9.4-12.3); Monocytes Absolute Auto 0.5 X10*3/uL (0.1-1.2); Monocytes Percent Auto 9.2 % (2-11); Neutrophils Absolute Auto 2.8 X10*3/uL (2.0-8.3); Neutrophils Percent Auto 48.4 % (45-73); Platelet Count 199 X10*3/uL (160-400); Red Blood Count 5.12 X10*6/uL (4.20-5.50); Red Cell Distribution Width 13.9 % (11.0-16.0); White Blood Count 5.8 X10*3/uL (4.8-10.8)
[2021-04-02 14:33] LABS: Alanine Aminotransferase 31 U/L (0-31); Albumin Level 3.8 g/dL (3.5-5.0); Alkaline Phosphatase 113 U/L (39-117); Anion Gap 14 (12-20); Aspartate Amino Transferase 49 U/L (5-31); Bilirubin Total 0.9 mg/dL (0.0-1.0); Blood Urea Nitrogen 6 mg/dL (9-16); Calcium 9.3 mg/dL (8.4-10.2); Carbon Dioxide 27 mmol/L (22-29); Chloride 99 mmol/L (96-108); Cholesterol 190 mg/dL; Estimated Glomerular Filt Rate > 60; Glucose Fasting 105 mg/dL (60-99); HDL Cholesterol 44 mg/dL; Iron 85 mcg/dL (30-160); LDL Cholesterol Calculated 126 mg/dl; Potassium 4.2 mmol/L (3.3-5.1); Sodium 136 mmol/L (135-145); Total Protein 7.6 g/dL (6.5-8.0); Triglycerides 100 mg/dL
[2021-04-02 14:52] LABS: Ferritin 151 ng/mL (10-250); TSH reflex Free T4 3.93 uIU/mL (0.32-4.0)
[2021-04-02 15:18] LABS: Folate 2.3 ng/mL (> or = 4.0); Vitamin B12 486 pg/mL (200-900)
[2021-04-07 15:06] LABS: Percent Iron Saturation 22 % (15-50); Total Iron Binding Capacity 378 mcg/dL (228-428); Unsaturated Iron Binding 293 ug/dL
== END 2021-04-02 12:51 | disposition home or self-care (01) ==
LOC: HO.HMGCLDS 12:50
PROVIDERS: PCP Nurse Practitioner Family; Visit Provider Nurse Practitioner Family
DX: R42 Dizziness and giddiness (principal)
CPT/HCPCS: 36415; 80053; 80061; 82607; 82728; 82746; 83540; 84443; 85025

== ENCOUNTER 2022-03-03 12:24 | Outpatient (REF) | payer OTHER, MEDICAID, SELFPAY ==
--- NOTE | ~2022-03-03 | MM_ITS ---
EXAMINATION: MM SCREENING DIGITAL BREAST TOMOSYNTHESIS, BILATERAL CLINICAL INFORMATION: Screening. Asymptomatic. The lifetime risk of breast cancer based on the Tyrer-Cuzick Model is 0.8%. COMPARISON: Mammography: September 14, 2018 and studies dating back to July 27, 2012 TECHNIQUE: Digital breast tomosynthesis is performed in both the craniocaudal and mediolateral oblique views along with computer-aided detection (CAD). Synthesized 2D images are generated from the tomosynthesis. FINDINGS: There are scattered areas of fibroglandular density (ACR BI-RADS breast composition Category b). There are no new significant masses, abnormal calcifications, or other abnormalities. There is question of asymmetric density retroareolar region of the right breast but which can be seen to have been present back on study of July 29, 2013 MM/MM tomosynthesis screening BI IMPRESSION: There are no significant changes from prior study. ASSESSMENT: BI-RADS 2: Benign RECOMMENDATION: Routine annual mammography screening. This patient's information was entered into a reminder system with a target due date for their next mammogram.
== END 2022-03-03 12:25 | disposition home or self-care (01) ==
LOC: HO.MAMMO 12:24
PROVIDERS: Visit Provider Nurse Practitioner Family
DX: Z12.31 Encounter for screening mammogram for malignant neoplasm of breast (principal)
CPT/HCPCS: 77063; 77067

== ENCOUNTER 2022-03-05 12:30 | Outpatient (REF) | payer OTHER, MEDICAID, SELFPAY ==
[2022-03-05 13:09] LABS: MANUAL DIFF FLAG NO
[2022-03-05 13:10] LABS: Basophils Percent Auto 0.4 % (0-2); Eosinophils Absolute Auto 0.1 X10*3/uL (0.0-0.4); Eosinophils Percent Auto 1.7 % (0-4); Hematocrit 41.5 % (37.0-47.0); Hemoglobin 14.3 g/dl (12.0-16.0); Imm Gran Abs Auto 0.03 X10*3/uL (0.00-0.03); Imm Gran Pct Auto 0.4 % (0.0-0.4); Lymphocytes Absolute Auto 1.2 X10*3/uL (1.2-4.9); Lymphocytes Percent Auto 17.2 % (20-40); Mean Corpuscular HGB Conc 34.5 g/dl (31.0-35.0); Mean Corpuscular Hemoglobin 30.9 pg (27.0-33.0); Mean Corpuscular Volume 89.6 fL (80.0-98.0); Mean Platelet Volume 10.4 fL (9.4-12.3); Monocytes Absolute Auto 0.7 X10*3/uL (0.1-1.2); Monocytes Percent Auto 9.4 % (2-11); Neutrophils Percent Auto 70.9 % (45-73); Platelet Count 200 X10*3/uL (160-400); Red Blood Count 4.63 X10*6/uL (4.20-5.50); Red Cell Distribution Width 13.4 % (11.0-16.0); White Blood Count 7.1 X10*3/uL (4.8-10.8)
[2022-03-05 13:25] LABS: Alanine Aminotransferase 21 U/L (0-31); Albumin Level 4.2 g/dL (3.5-5.0); Alkaline Phosphatase 122 U/L (39-117); Anion Gap 13 (12-20); Aspartate Amino Transferase 27 U/L (5-31); Bilirubin Direct 0.4 mg/dL (0.0-0.5); Bilirubin Total 0.8 mg/dL (0.0-1.0); Blood Urea Nitrogen 7 mg/dL (9-16); Calcium 9.6 mg/dL (8.4-10.2); Carbon Dioxide 28 mmol/L (22-29); Chloride 99 mmol/L (96-108); Estimated Glomerular Filt Rate > 60; Glucose Random 82 mg/dL (60-115); Sodium 135 mmol/L (135-145); Total Protein 7.9 g/dL (6.5-8.0)
== END 2022-03-05 12:31 | disposition home or self-care (01) ==
LOC: HO.HMGCLDS 12:30
PROVIDERS: PCP Nurse Practitioner Family; Visit Provider Physician Assistant Medical
DX: R60.9 Edema, unspecified (principal)
CPT/HCPCS: 36415; 80053; 82248; 85025

== ENCOUNTER 2022-03-07 08:10 | Outpatient (REF) | payer OTHER, MEDICAID, SELFPAY ==
[2022-03-07 11:46] LABS: Appearance Urine CLEAR; Color Urine YELLOW; Glucose Urine UA NEG (NEG); Leukocyte Esterase Urine 1+ (NEG); Nitrite Urine NEG (NEG); Specific Gravity - Urine <= 1.005 (1.005-1.025); Urine Blood NEG (NEG); Urine Ketones NEG (NEG); Urine Protein NEG (NEG-TRACE)
[2022-03-07 13:46] LABS: Squamous Epithelial Cell Urine 3+ /LPF
[2022-03-07 13:47] LABS: Bacteria Urine 1+ /LPF
[2022-03-07 13:52] LABS: RBC Urine 0 /HPF (0)
== END 2022-03-07 08:11 | disposition home or self-care (01) ==
LOC: HO.HMGCLNP 08:10
PROVIDERS: Physician Assistant Medical; PCP Nurse Practitioner Family; Visit Provider Nurse Practitioner Family
DX: R60.9 Edema, unspecified (principal)
CPT/HCPCS: 81001

== ENCOUNTER 2022-03-17 13:17 | Outpatient (REF) | payer OTHER, MEDICAID, SELFPAY ==
--- NOTE | ~2022-03-17 | MM_ITS ---
EXAMINATION: BONE DENSITOMETRY CLINICAL INDICATION: Asymptomatic menopausal state. COMPARISON: Previous BD dated 09/07/2017 and baseline BD dated 07/04/2006. TECHNIQUE: Using a [employer] DXA System (software version: 13.1) manufactured by [employer], dual-energy x-ray absorptiometry was performed of the lumbar spine and left hip. The images are of good technical quality. Summary results are attached. FINDINGS: AP SPINE L1-L4: There is dextrocurvature lumbar spine with multilevel degenerative changes which may cause over estimation of the lumbar bone mineral density. Current: BMD 0.815 g/cm2, Z-score -1.1, T-score -3.0, osteoporosis, 11.6% decrease from previous, 19.1% decrease from baseline (<5% change is not significant). Prior: BMD 0.922 g/cm2. Baseline: BMD 1.008 g/cm2. LEFT FEMUR, NECK: Current: BMD 0.587 g/cm2, Z-score -1.0, T-score -3.2, osteoporosis. Prior: BMD 0.626 g/cm2. Baseline: BMD 0.645 g/cm2. LEFT FEMUR, TOTAL: Current: BMD 0.639 g/cm2, Z-score -0.8, T-score -2.9, osteoporosis, 10.0% decrease from previous, 6.6% decrease from baseline (<5% change is not significant). Prior: BMD 0.710 g/cm2. Baseline: BMD 0.684 g/cm2. IDENTIFIED RISK FACTORS: Osteoporosis, tobacco use (current smoker), height loss, history of fracture (adult). Early menopause, secondary osteoporosis, hysterectomy, bilateral oophorectomy. HISTORY OF FRACTURE: Ribs, wrist, clavicle, knee. MEDICATIONS: Calcium or multivitamin. MM/XR DEXA axial skeleton IMPRESSION: 1. DIAGNOSIS: Osteoporosis based on the lowest T-score value of -3.2 in the femoral neck applying World Health Organization criteria. 2. 10-YEAR FRACTURE RISK PREDICTION, FRAX: According to the guidelines, FRAX calculation should only be performed on patients in the osteopenia bone density category. Therefore, FRAX was not performed on this patient. 3. Treatment Recommendations: NOF guidelines recommend consideration for treatment in postmenopausal women and men age 50 and older presenting with the following: -A hip or vertebral (clinical or morphometric) fracture. -T-score less than or equal to -2.5 at the femoral neck or spine after appropriate evaluation to exclude secondary causes. -Low bone mass at the hip or spine and a 10-year fracture probability by FRAX of greater than or equal to 3% for hip fracture or greater than or equal to 20% for major osteoporotic fracture based on the [place] adapted WHO algorithm. 4. Other Recommendations: All treatment decisions require clinical judgment and consideration of individual patient factors, including patient preferences, comorbidities, previous drug use, risk factors not captured in the FRAX model (e.g. frailty, falls, vitamin D deficiency, increased bone turnover, interval significant decline in bone density) and possible under or overestimation of fracture risk by FRAX. Additional medical evaluation for secondary cause of low bone mineral density may be appropriate. FUTURE SCAN RECOMMENDATION: People with diagnosed cases of osteoporosis or at high risk for fracture should have regular bone mineral density tests. For patients eligible for Medicare, routine testing is allowed once every 2 years. The testing frequency can be increased to one year for patients who have rapidly progressing disease, those who are receiving or discontinuing medical therapy to restore bone mass, or have additional risk factors.
== END 2022-03-17 13:18 | disposition home or self-care (01) ==
LOC: HO.MAMMO 13:17
PROVIDERS: PCP Nurse Practitioner Family; Visit Provider Nurse Practitioner Family
DX: Z13.820 Encounter for screening for osteoporosis (principal); Z78.0 Asymptomatic menopausal state; M81.0 Age-related osteoporosis without current pathological fracture
CPT/HCPCS: 77080

== ENCOUNTER 2022-08-04 23:17 | Inpatient (IN) | payer OTHER, SELFPAY ==
--- NOTE | 2022-08-04 | ECG_ITS ---
Test Reason : FALL Blood Pressure : / mmHG Vent. Rate : 094 BPM Atrial Rate : 094 BPM P-R Int : 162 ms QRS Dur : 088 ms QT Int : 358 ms P-R-T Axes : 000 000 069 degrees QTc Int : 447 ms Artifact on tracing Normal sinus rhythm When compared with ECG of 05-SEP-2020 01:08, Poor data quality in current ECG precludes serial comparison Referred By: Heather Gonzalez Electronically Signed By:Davin Santana
[2022-08-04 23:34] VITALS: BP 133/61; BP 133/64; PULSE 89; PULSE 96; RESP 22; TEMP 37.2; O2SAT 98; O2SAT 99; BMI 25.4
[2022-08-05] VITALS (12 sets, daily range): BP systolic 86–159; BP diastolic 47–75; PULSE 79–105; RESP 12–29; TEMP 36.1–36.8; O2SAT 95–99
--- NOTE | 2022-08-05 00:13 | ED.FALL ---
HPI - Fall General Chief Complaint: Fall Stated Complaint: FALL Time Seen by Provider: 08/04/22 23:55 Source: patient and EMS Mode of arrival: EMS Limitations: other (Poor historian) History of Present Illness HPI Narrative: 81-year-old female history of recent cervical spine fracture in a collar, hypertension, hyperlipidemia, alcohol use disorder, presenting to the emergency department status post fall. Patient poor historian however she tells me she thinks she was sitting on the toilet, and remembers waking up on the ground. She tells me she did not lose consciousness however she cannot recall the full event. Patient tells me she is on blood thinners however am unable to find any blood thinners on her medication list. Patient denies any pain at this time. Denies chest pain, shortness of breath, headache, vision changes, dizziness, weakness, numbness, tingling. Related Data Previous Rx's Medication Instructions Recorded naproxen sodium 220 mg capsule 220 mg PO Q12H PRN Pain 30 days 12/12/20 (Aleve) #60 caps amlodipine 5 mg tablet 5 mg PO DAILY 90 days #90 tabs 02/22/22 walker with wheels, seat & brakes #1 ea 03/25/22 calcium carbonate 600 mg calcium 600 mg PO DAILY 90 days #90 tabs 06/15/22 (1,500 mg) tablet alprazolam 0.5 mg tablet (Xanax) 0.5 mg PO BID PRN Anxiety 30 days 07/06/22 #60 tabs Allergies Allergy/AdvReac Type Severity Reaction Status Date / Time atorvastatin Allergy Mild Swelling Verified 03/24/22 15:00 alendronate sodium [Fosamax] Allergy Unknown unknown Verified 03/24/22 14:42 ciprofloxacin [Cipro] AdvReac Unknown blister Verified 03/24/22 14:42 lisinopril AdvReac Unknown throat Verified 03/24/22 14:42 swelling, cough From CIPRO Allergy Unknown BLISTERS Uncoded 03/24/22 14:42 IN MOUTH From ELAVIL AdvReac Unknown HALLUCINATI Uncoded 03/24/22 14:42 ONS Review of Systems Review of Systems: Constitutional : No Weight loss, No Fever, No Chills, No Fatigue, No Malaise ENT/Mouth : No sore throat, No Rhinorrhea Eyes: No Eye Pain, No Swelling, No Redness Cardiovascular : No Chest Pain, No SOB, No Dyspnea on Exertion, No Orthopnea, No Edema, No Palpitations Respiratory : No Cough, No Sputum, No Wheezing Gastrointestinal : No Nausea, No Vomiting, No Diarrhea, No Constipation, No abdominal Pain, No Hematochezia, No Melena Genitourinary : No Dysuria, No Urinary Frequency, No Hematuria, Musculoskeletal : No joint pain, No Myalgias, No Joint Swelling Skin : No Skin Lesions, No rash Neuro : No Weakness, No Numbness, No Dizziness, No Headache Psych : No Anxiety/Panic, No Depression All other systems reviewed and are negative Yes all other systems are reviewed and are negative [facility] Past Medical History Attestation statement: The following information was validated with the patient. Source: old records reviewed and nursing notes reviewed Medical History Alcohol use disorder Anxiety Distal radius fracture, right (~2020) Essential hypertension Hyperlipidemia Osteoporosis (~2017) Personal history of nicotine dependence Right patella fracture (~2011) Tubulovillous adenoma of colon (~2001) Surgical History History of appendectomy History of bronchoscopy (~2009) History of colonoscopy (~2001) History of cystoscopy (~2001) History of hysterectomy History of right knee surgery (~2011) History of surgery on right wrist (~2020) History of tonsillectomy (~1943) Family History Family History Other Substance use disorder Social History Social History Housing: Apartment Alcohol intake: current Alcohol intake frequency: 0-2 drinks per day Alcohol type: hard liquor Patient Tobacco Use Status: Current everyday Tobacco user Cigarette Packs Per Day: 0.5 e-Cigarette/Vaping Use: Never Used Second Hand Smoke Exposure: No Advance Directives Date on File: 09/16/20 Current occupational status: retired Current occupation: Right Handed Cognitive needs: No Hearing needs: No Vision needs: No Physical Exam Vital Signs: Vital Signs: Last Vital Signs Temp 98.2 F 08/05/22 00:00 Pulse 87 08/05/22 00:00 Resp 29 H 08/05/22 00:00 BP 114/47 L 08/05/22 00:00 Pulse Ox 97 08/05/22 00:00 O2 Del Method 08/05/22 00:00 BMI result Body Mass Index 25.4 vss Appearance: Alert.? Oriented X3.? No acute distress.? Slow to answer questions however alert and oriented x3 Head: Normocephalic, atraumatic, no step-offs or deformities Eyes: Pupils equal, round and reactive to light.? Extraocular movements intact and pain-free. ENT: Pharynx normal.? Neck: Normal inspection.? Neck supple.? CVS: Normal heart rate and rhythm.? Pulses normal.? Respiratory: No respiratory distress.? Breath sounds normal.? Abdomen: Soft and nontender.? Skin: Skin warm and dry.? Normal skin color.? Normal skin turgor.? Extremities: No lower extremity edema.? No calf ttp. 5/5 strength to bilateral upper and lower extremities Back: No midline tenderness, no C-spine tenderness, full range of motion, no CVA tenderness bilaterally Neuro: Oriented X 3.? No motor deficit.? No sensory deficit. CN 2-12 intact . Negative Romberg. Normal hand round boner bilaterally. Course Course Course Narrative: This case was thoroughly discussed with my attending who agrees with diagnosis and treatment plan. Reevaluation(s) Reevaluation #1: CBC appears to have a slight normocytic anemia, patient denies any reports of bleeding. However, will obtain OBS. Chemistry with no acute findings requiring intervention. Coags within normal limits. Ethanol negative. COVID negative. CT of the neck showing a displaced fracture of C2, based off patient's records that she brought with her patient does have a history of an unspecified to displaced fracture of 2nd cervical vertebra subsequent encounter for fracture without routine healing. However will obtain CTA of head and neck to rule out injuries to the vertebral artery. Time: 00:59 Reevaluation #2: OBS positive. Patient is noted to have a slight normocytic anemia. Patient will be admitted to the hospital for lower GI bleed, records obtained from [facility] which do show the patient does have a known type 3 C2 fracture. CTA still pending. Time: 01:34 Medical Decision Making Medical Decision Making [facility] Narrative: 0000 81-year-old female presents status post unwitnessed fall, with suspected loss of consciousness, patient claims on blood thinners however unable to identify any blood thinners on medication list. Patient poor historian. No medical complaints at this time. Coming from [facility] facility Physical exam benign. Patient however in cervical collar. No midline tenderness on palpation. No evidence signs of trauma. GCS of 15 NIH stroke scale 0. Likely vasovagal syncope. Patient does not have a seizure history unlikely seizures. Will obtain troponin and EKG to rule out cardiac etiology. Will also rule out scans for trauma. Plan at this time trauma scans, obtain basic labs, CPK, ethanol level, PT INR. Lab Data Result Diagrams: 08/05/22 00:31 08/05/22 00:31 Labs: Lab Results 08/05/22 08/05/22 08/05/22 Range/Units 00:31 00:31 00:31 WBC 9.5 (4.8-10.8) X10*3/uL RBC 3.48 L D (4.20-5.50) X10*6/uL Hgb 10.2 L D (12.0-16.0) g/dl Hct 30.2 L D (37.0-47.0) % MCV 86.8 (80.0-98.0) fL MCH 29.3 (27.0-33.0) pg MCHC 33.8 (31.0-35.0) g/dl RDW 13.9 (11.0-16.0) % Plt Count 225 (160-400) X10*3/uL MPV 10.4 (9.4-12.3) fL Immature Gran % (Auto) 0.5 H (0.0-0.4) % Neut % (Auto) 78.4 H (45-73) % Lymph % (Auto) 13.4 L (20-40) % [place] % (Auto) 6.9 (2-11) % Eos % (Auto) 0.5 (0-4) % Baso % (Auto) 0.3 (0-2) % Lymph # (Auto) 1.3 (1.2-4.9) X10*3/uL [place] # (Auto) 0.7 (0.1-1.2) X10*3/uL Eos # (Auto) 0.1 (0.0-0.4) X10*3/uL Baso # (Auto) 0.0 (0.0-0.2) X10*3/uL Abs Immat Gran (auto) 0.05 H (0.00-0.03) X10*3/uL Absolute Neuts (auto) 7.5 (2.0-8.3) x10*3/uL Absolute Nucleated RBC 0.000 (0.0-0.012) X10*3/uL Nucleated RBC % (auto) 0.0 (0.0-0.2) /100WBC PT (10.0-13.1) SEC INR (0.9-1.1) Sodium 137 (135-145) mmol/L Potassium 4.1 (3.3-5.1) mmol/L Chloride 105 (96-108) mmol/L Carbon Dioxide 23 (22-29) mmol/L Anion Gap 13 (12-20) BUN 10 (9-16) mg/dL Creatinine 0.66 (0.5-1.4) mg/dL Estim Creat Clear Calc 57.0 Estimated GFR > 60 Random Glucose 111 (60-115) mg/dL Calcium 9.3 (8.4-10.2) mg/dL Magnesium 2.0 (1.6-2.6) mg/dL Total Bilirubin 0.6 (0.0-1.0) mg/dL AST 36 H (5-31) U/L ALT 62 H (0-31) U/L Alkaline Phosphatase 128 H (39-117) U/L Total Creatine Kinase 100 (26-140) U/L Troponin I High Sens (<3.5-17.0) ng/L Total Protein 6.3 L (6.5-8.0) g/dL Albumin 3.5 (3.5-5.0) g/dL Stool Occult Blood (NEGATIVE) Ethyl Alcohol mg/dL COVID-19 ([facility]INDSE[facility]) Negative (Negative) COVID-19 Clin Com See Note 08/05/22 08/05/22 08/05/22 Range/Units 00:31 00:31 00:31 WBC (4.8-10.8) X10*3/uL RBC (4.20-5.50) X10*6/uL Hgb (12.0-16.0) g/dl Hct (37.0-47.0) % MCV (80.0-98.0) fL MCH (27.0-33.0) pg MCHC (31.0-35.0) g/dl RDW (11.0-16.0) % Plt Count (160-400) X10*3/uL MPV (9.4-12.3) fL Immature Gran % (Auto) (0.0-0.4) % Neut % (Auto) (45-73) % Lymph % (Auto) (20-40) % [place] % (Auto) (2-11) % Eos % (Auto) (0-4) % Baso % (Auto) (0-2) % Lymph # (Auto) (1.2-4.9) X10*3/uL [place] # (Auto) (0.1-1.2) X10*3/uL Eos # (Auto) (0.0-0.4) X10*3/uL Baso # (Auto) (0.0-0.2) X10*3/uL Abs Immat Gran (auto) (0.00-0.03) X10*3/uL Absolute Neuts (auto) (2.0-8.3) x10*3/uL Absolute Nucleated RBC (0.0-0.012) X10*3/uL Nucleated RBC % (auto) (0.0-0.2) /100WBC PT 12.8 (10.0-13.1) SEC INR 1.1 (0.9-1.1) Sodium (135-145) mmol/L Potassium (3.3-5.1) mmol/L Chloride (96-108) mmol/L Carbon Dioxide (22-29) mmol/L Anion Gap (12-20) BUN (9-16) mg/dL Creatinine (0.5-1.4) mg/dL Estim Creat Clear Calc Estimated GFR Random Glucose (60-115) mg/dL Calcium (8.4-10.2) mg/dL Magnesium (1.6-2.6) mg/dL Total Bilirubin (0.0-1.0) mg/dL AST (5-31) U/L ALT (0-31) U/L Alkaline Phosphatase (39-117) U/L Total Creatine Kinase (26-140) U/L Troponin I High Sens < 3.5 (<3.5-17.0) ng/L Total Protein (6.5-8.0) g/dL Albumin (3.5-5.0) g/dL Stool Occult Blood (NEGATIVE) Ethyl Alcohol < 10 mg/dL COVID-19 ([facility]) (Negative) COVID-19 Clin Com 08/05/22 Range/Units 01:11 WBC (4.8-10.8) X10*3/uL RBC (4.20-5.50) X10*6/uL Hgb (12.0-16.0) g/dl Hct (37.0-47.0) % MCV (80.0-98.0) fL MCH (27.0-33.0) pg MCHC (31.0-35.0) g/dl RDW (11.0-16.0) % Plt Count (160-400) X10*3/uL MPV (9.4-12.3) fL Immature Gran % (Auto) (0.0-0.4) % Neut % (Auto) (45-73) % Lymph % (Auto) (20-40) % [place] % (Auto) (2-11) % Eos % (Auto) (0-4) % Baso % (Auto) (0-2) % Lymph # (Auto) (1.2-4.9) X10*3/uL [place] # (Auto) (0.1-1.2) X10*3/uL Eos # (Auto) (0.0-0.4) X10*3/uL Baso # (Auto) (0.0-0.2) X10*3/uL Abs Immat Gran (auto) (0.00-0.03) X10*3/uL Absolute Neuts (auto) (2.0-8.3) x10*3/uL Absolute Nucleated RBC (0.0-0.012) X10*3/uL Nucleated RBC % (auto) (0.0-0.2) /100WBC PT (10.0-13.1) SEC INR (0.9-1.1) Sodium (135-145) mmol/L Potassium (3.3-5.1) mmol/L Chloride (96-108) mmol/L Carbon Dioxide (22-29) mmol/L Anion Gap (12-20) BUN (9-16) mg/dL Creatinine (0.5-1.4) mg/dL Estim Creat Clear Calc Estimated GFR Random Glucose (60-115) mg/dL Calcium (8.4-10.2) mg/dL Magnesium (1.6-2.6) mg/dL Total Bilirubin (0.0-1.0) mg/dL AST (5-31) U/L ALT (0-31) U/L Alkaline Phosphatase (39-117) U/L Total Creatine Kinase (26-140) U/L Troponin I High Sens (<3.5-17.0) ng/L Total Protein (6.5-8.0) g/dL Albumin (3.5-5.0) g/dL Stool Occult Blood POSITIVE (NEGATIVE) Ethyl Alcohol mg/dL COVID-19 ([facility]) (Negative) COVID-19 Clin Com Critical Care Time Critical Care Time Critical Care Time: No Discharge Plan Discharge Clinical Impression: Fall, Concussion with loss of consciousness, C2 cervical fracture, Physical deconditioning, Lower gastrointestinal bleed Patient Disposition: Admitted As Inpatient Additional Instructions: Take your medications as prescribed. If you were prescribed antibiotics today, it is important that you take your medication to their entirety, do not skip any doses, do not finish them early. Follow-up with your primary care provider this week. Return to the emergency department with new or worsening symptoms. Such as fevers, chills, chest pain, shortness of breath, nausea, vomiting, dizziness, headache, vision changes, lethargy In case of emergency call 911 CT/CT head/brain wo IV con IMPRESSION: HEAD: No acute intracranial findings. ? CERVICAL SPINE: Type III odontoid fracture of C2 as described above. Associated vertebral artery injury on the left cannot be excluded, and this would be better evaluated with CT angiogram. ? This critical result was discussed with REGIS [place] on 08/05/2022 12:55 AM, and it was ascertained that the content and urgency of the report was understood at the time of direct communication. Prescriptions: No Action naproxen sodium [Aleve] 220 mg capsule 220 mg PO Q12H PRN (Reason: Pain) 30 Days Qty: 60 1RF amlodipine 5 mg tablet 5 mg PO DAILY 90 Days Qty: 90 0RF (DME) walker with wheels, seat & brakes See Rx Instructions .Route .MEDSUPPLY Qty: 1 0RF Rx Instructions: daily use calcium carbonate 600 mg calcium (1,500 mg) tablet 600 mg PO DAILY 90 Days Qty: 90 0RF alprazolam [Xanax] 0.5 mg tablet 0.5 mg PO BID PRN (Reason: Anxiety) 30 Days Qty: 60 0RF
--- NOTE | 2022-08-05 00:18 | ECG_ITS ---
Test Reason : fall, weakness Blood Pressure : / mmHG Vent. Rate : 094 BPM Atrial Rate : 094 BPM P-R Int : 190 ms QRS Dur : 080 ms QT Int : 352 ms P-R-T Axes : 042 002 053 degrees QTc Int : 440 ms Normal sinus rhythm Normal ECG When compared with ECG of 04-AUG-2022 23:38, No significant change was found Referred By: Heather Gonzalez Electronically Signed By:Davin Santana
[2022-08-05 00:36] LABS: MANUAL DIFF FLAG NO
[2022-08-05 00:37] LABS: Basophils Percent Auto 0.3 % (0-2); Eosinophils Absolute Auto 0.1 X10*3/uL (0.0-0.4); Eosinophils Percent Auto 0.5 % (0-4); Hematocrit 30.2 % (37.0-47.0); Hemoglobin 10.2 g/dl (12.0-16.0); Imm Gran Abs Auto 0.05 X10*3/uL (0.00-0.03); Imm Gran Pct Auto 0.5 % (0.0-0.4); Lymphocytes Absolute Auto 1.3 X10*3/uL (1.2-4.9); Lymphocytes Percent Auto 13.4 % (20-40); Mean Corpuscular HGB Conc 33.8 g/dl (31.0-35.0); Mean Corpuscular Hemoglobin 29.3 pg (27.0-33.0); Mean Corpuscular Volume 86.8 fL (80.0-98.0); Mean Platelet Volume 10.4 fL (9.4-12.3); Monocytes Absolute Auto 0.7 X10*3/uL (0.1-1.2); Monocytes Percent Auto 6.9 % (2-11); Neutrophils Absolute Auto 7.5 x10*3/uL (2.0-8.3); Neutrophils Percent Auto 78.4 % (45-73); Platelet Count 225 X10*3/uL (160-400); Red Blood Count 3.48 X10*6/uL (4.20-5.50); Red Cell Distribution Width 13.9 % (11.0-16.0); White Blood Count 9.5 X10*3/uL (4.8-10.8)
[2022-08-05 00:43] LABS: INTERNATIONAL NORM RATIO 1.1 (0.9-1.1); Prothrombin Time 12.8 SEC (10.0-13.1)
[2022-08-05 00:48] LABS: COVID-19 Test Negative (Negative); IDNOW Serial# BCCEAD1C
[2022-08-05 00:51] LABS: Ethanol < 10 mg/dL
[2022-08-05 00:54] LABS: Alanine Aminotransferase 62 U/L (0-31); Albumin Level 3.5 g/dL (3.5-5.0); Alkaline Phosphatase 128 U/L (39-117); Anion Gap 13 (12-20); Aspartate Amino Transferase 36 U/L (5-31); Bilirubin Total 0.6 mg/dL (0.0-1.0); Blood Urea Nitrogen 10 mg/dL (9-16); Calcium 9.3 mg/dL (8.4-10.2); Carbon Dioxide 23 mmol/L (22-29); Chloride 105 mmol/L (96-108); Estimated Glomerular Filt Rate > 60; Glucose Random 111 mg/dL (60-115); Potassium 4.1 mmol/L (3.3-5.1); Sodium 137 mmol/L (135-145); Total Protein 6.3 g/dL (6.5-8.0)
[2022-08-05 00:59] LABS: Troponin-I High Sensitivity < 3.5 ng/L (<3.5-17.0)
[2022-08-05 01:19] LABS: OBS Int Ctl Valid YES; OBS1 POSITIVE (NEGATIVE)
[2022-08-05] MEDS: iohexoL 350 MG/ML 100 ML INFUS..BTL IV (01:42)
--- OUTSIDE RECORDS SUMMARY | 2022-08-05 02:16 | XMS_ITS | Continuity of Care Document ---
:1940
--- NOTE | 2022-08-05 03:15 | PC.NURSE ---
blood pressure beginning to trend down, MD aware, verbal order for normal saline bolus 1000ml intitiated
[2022-08-05] MEDS: 0.9 % Sodium Chloride 1,000 ML 999 ML IV (03:40)
[2022-08-05] MEDS: SODIUM CHLORIDE 1833 ML IV (06:01)
[2022-08-05 06:11] LABS: MANUAL DIFF FLAG NO
[2022-08-05 06:14] LABS: Basophils Percent Auto 0.3 % (0-2); Eosinophils Percent Auto 0.5 % (0-4); Hematocrit 26.5 % (37.0-47.0); Hemoglobin 8.9 g/dl (12.0-16.0); Imm Gran Abs Auto 0.04 X10*3/uL (0.00-0.03); Imm Gran Pct Auto 0.6 % (0.0-0.4); Lymphocytes Absolute Auto 1.6 X10*3/uL (1.2-4.9); Lymphocytes Percent Auto 24.9 % (20-40); Mean Corpuscular HGB Conc 33.6 g/dl (31.0-35.0); Mean Corpuscular Hemoglobin 29.4 pg (27.0-33.0); Mean Corpuscular Volume 87.5 fL (80.0-98.0); Mean Platelet Volume 10.6 fL (9.4-12.3); Monocytes Absolute Auto 0.4 X10*3/uL (0.1-1.2); Monocytes Percent Auto 6.8 % (2-11); Neutrophils Absolute Auto 4.2 x10*3/uL (2.0-8.3); Neutrophils Percent Auto 66.9 % (45-73); Platelet Count 170 X10*3/uL (160-400); Red Blood Count 3.03 X10*6/uL (4.20-5.50); White Blood Count 6.3 X10*3/uL (4.8-10.8)
[2022-08-05 06:24] LABS: Lactic Acid 1.6 mmol/L (0.5-2.0)
--- NOTE | 2022-08-05 06:45 | PM.IMHP ---
History of Present Illness Date of Service: 08/05/22 Chief Complaint: fall Patient is a resident of [facility] [place], with a recent cervical spine fracture in a collar, has a history of hyperlipidemia, hypertension, history of alcohol use disorder, with a history of cervical spine fracture after a fall a month ago presents to the hospital with complaints of another fall. It appears the patient was sitting on the toilet, and fill, she denied any loss of consciousness, no dizziness, no palpitations. Patient currently sleeping wakes up and falls back asleep. History is obtained mostly from ED provider and EMR. Patient at baseline is a poor historian, and was unable to recall the full event although denies losing consciousness. She has reported to their ED staff and provider that she is on a blood thinner, for unclear reason. On arrival to the ED patient hemodynamically stable with no significant abnormal vitals except for a slightly elevated respiratory rate Labs are significant for WBC count of 9.5, hemoglobin of 10.2 which is significantly dropped from 14.3 in February of this year, hematocrit 30.2, AST of 36, ALT of 62, alk-phos of 128, COVID-19 negative, alcohol level negative, stool occult blood positive Head CT angiogram shows no acute findings in the major arteries of the neck, no large vessel occlusion or significant stenosis in the intracranial circulation, redemonstrated mildly displaced type 3 odontoid fracture without significant change from recent imaging Chest CT shows no acute findings in the abdomen chest or pelvis, shows emphysema Review of Systems Review of Systems: Yes all other systems are reviewed and are negative [facility] Medical History Alcohol use disorder Anxiety Distal radius fracture, right (~2020) Essential hypertension Hyperlipidemia Osteoporosis (~2017) Personal history of nicotine dependence Right patella fracture (~2011) Tubulovillous adenoma of colon (~2001) Family History Other Substance use disorder Surgical History History of appendectomy History of bronchoscopy (~2009) History of colonoscopy (~2001) History of cystoscopy (~2001) History of hysterectomy History of right knee surgery (~2011) History of surgery on right wrist (~2020) History of tonsillectomy (~1944) Social History Housing: Apartment Alcohol intake: current Alcohol intake frequency: 0-2 drinks per day Alcohol type: hard liquor Patient Tobacco Use Status: Current everyday Tobacco user Cigarette Packs Per Day: 0.5 e-Cigarette/Vaping Use: Never Used Second Hand Smoke Exposure: No Advance Directives: No Advance Directives Information Provided: Yes Advance Directives Date on File: 09/16/20 Current occupational status: retired Current occupation: Right Handed Cognitive needs: No Hearing needs: No Vision needs: No Meds Allergies Allergy/AdvReac Type Severity Reaction Status Date / Time atorvastatin Allergy Mild Swelling Verified 03/24/22 15:00 alendronate sodium [Fosamax] Allergy Unknown unknown Verified 03/24/22 14:42 ciprofloxacin [Cipro] AdvReac Unknown blister Verified 03/24/22 14:42 lisinopril AdvReac Unknown throat Verified 03/24/22 14:42 swelling, cough From CIPRO Allergy Unknown BLISTERS Uncoded 03/24/22 14:42 IN MOUTH From ELAVIL AdvReac Unknown HALLUCINATI Uncoded 03/24/22 14:42 ONS Active Medications: Current Medications Acetaminophen (Acetaminophen 325 Mg Tablet) 650 mg PO Q6H PRN PRN Reason: Pain, Mild (Pain Scale 1-3) Ondansetron HCl (Ondansetron Hcl 4 Mg/2 Ml Vial) 4 mg IVPUSH Q8H PRN PRN Reason: Nausea and Vomiting Pharmacy Consult (Consult Rx Perform Med Rec) 1 each MISCELLANE ONCE PRN PRN Reason: Consult order Sodium Chloride (0.9 % Sodium Chloride Flush 3 Ml Syringe) 3 ml IVFLUSH [facility] Home Medications Medication Instructions Recorded Confirmed Last Taken Type acetaminophen 325 mg tablet 650 mg PO Q6H PRN Pain 08/05/22 08/05/22 Unknown History (Tylenol) bisacodyl 10 mg TN PRN Constipation 08/05/22 Unknown History enoxaparin 40 mg/0.4 mL 40 mg subcut DAILY 08/05/22 08/05/22 Unknown History subcutaneous syringe folic acid 1 mg tablet 1 mg PO DAILY 08/05/22 08/05/22 Unknown History lacosamide 200 mg tablet 200 mg PO BID 08/05/22 08/05/22 Unknown History magnesium hydroxide 400 mg/5 mL 5 ml PO DAILY PRN Constipation 08/05/22 08/05/22 Unknown History oral suspension (Milk of Magnesia) melatonin 3 mg tablet 3 mg PO BEDTIME PRN Insomnia 08/05/22 08/05/22 Unknown History multivitamin 1 tab PO DAILY 08/05/22 08/05/22 Unknown History polyethylene glycol 3350 17 gram 17 g PO DAILY PRN Constipation 08/05/22 08/05/22 Unknown History oral powder packet (Miralax) pyridoxine (vitamin B6) 50 mg 50 mg PO DAILY 08/05/22 08/05/22 Unknown History tablet senna-docusate sodium 08/05/22 Unknown History thiamine HCl (vitamin B1) 100 mg 100 mg PO DAILY 08/05/22 08/05/22 Unknown History tablet topiramate 50 mg tablet 50 mg PO BID 08/05/22 08/05/22 Unknown History Physical Exam Vital Signs and Narrative: Vital Signs: Last Vital Signs Temp 97.5 F 08/05/22 05:38 Pulse 98 08/05/22 06:10 Resp 26 H 08/05/22 06:10 BP 130/70 08/05/22 06:10 Pulse Ox 97 08/05/22 06:10 O2 Del Method 08/05/22 06:10 BMI result Body Mass Index 25.4 Const: Other: sleeping but arourable General: no acute distress HEENT: Other: has a collar in place- not new Eyes: General: appearance normal, both eyes and all related structures Resp: Effort & Inspection: normal respiratory effort Auscultation: clear to auscultation bilaterally Cardio: Rate: regular rate Rhythm: regular rhythm GI: Palpation (GI): Soft to palpation Auscultation: normal bowel sounds Skin: General skin exam: no rashes or lesions noted Extrem: General: Yes normal to inspection and Yes no pedal edema Results Labs CBC and Chem 7: 08/05/22 06:02 08/05/22 00:31 Labs: Laboratory Results - last 24 hr 08/05/22 08/05/22 08/05/22 00:31 00:31 00:31 MCV 86.8 MCH 29.3 MCHC 33.8 RDW 13.9 Plt Count 225 MPV 10.4 Immature Gran % (Auto) 0.5 H Neut % (Auto) 78.4 H Lymph % (Auto) 13.4 L [place] % (Auto) 6.9 Eos % (Auto) 0.5 Baso % (Auto) 0.3 Lymph # (Auto) 1.3 [place] # (Auto) 0.7 Eos # (Auto) 0.1 Baso # (Auto) 0.0 Abs Immat Gran (auto) 0.05 H Absolute Neuts (auto) 7.5 Absolute Nucleated RBC 0.000 Nucleated RBC % (auto) 0.0 PT INR Anion Gap 13 Estim Creat Clear Calc 57.0 Estimated GFR > 60 Random Glucose 111 Lactic Acid Calcium 9.3 Magnesium 2.0 Total Bilirubin 0.6 AST 36 H ALT 62 H Alkaline Phosphatase 128 H Total Creatine Kinase 100 Troponin I High Sens Total Protein 6.3 L Albumin 3.5 Stool Occult Blood Ethyl Alcohol COVID-19 ([facility]SEY) Negative COVID-19 Clin Com See Note 08/05/22 08/05/22 08/05/22 00:31 00:31 00:31 MCV MCH MCHC RDW Plt Count MPV Immature Gran % (Auto) Neut % (Auto) Lymph % (Auto) [place] % (Auto) Eos % (Auto) Baso % (Auto) Lymph # (Auto) [place] # (Auto) Eos # (Auto) Baso # (Auto) Abs Immat Gran (auto) Absolute Neuts (auto) Absolute Nucleated RBC Nucleated RBC % (auto) PT 12.8 INR 1.1 Anion Gap Estim Creat Clear Calc Estimated GFR Random Glucose Lactic Acid Calcium Magnesium Total Bilirubin AST ALT Alkaline Phosphatase Total Creatine Kinase Troponin I High Sens < 3.5 Total Protein Albumin Stool Occult Blood Ethyl Alcohol < 10 COVID-19 ([facility]) COVID-19 Clin Com 08/05/22 08/05/22 08/05/22 01:11 06:02 06:02 MCV 87.5 MCH 29.4 MCHC 33.6 RDW 14.0 Plt Count 170 MPV 10.6 Immature Gran % (Auto) 0.6 H Neut % (Auto) 66.9 Lymph % (Auto) 24.9 [place] % (Auto) 6.8 Eos % (Auto) 0.5 Baso % (Auto) 0.3 Lymph # (Auto) 1.6 [place] # (Auto) 0.4 Eos # (Auto) 0.0 Baso # (Auto) 0.0 Abs Immat Gran (auto) 0.04 H Absolute Neuts (auto) 4.2 Absolute Nucleated RBC 0.000 Nucleated RBC % (auto) 0.0 PT INR Anion Gap Estim Creat Clear Calc Estimated GFR Random Glucose Lactic Acid 1.6 Calcium Magnesium Total Bilirubin AST ALT Alkaline Phosphatase Total Creatine Kinase Troponin I High Sens Total Protein Albumin Stool Occult Blood POSITIVE Ethyl Alcohol COVID-19 ([facility]) COVID-19 Clin Com 08/05/22 06:02 MCV Cancelled MCH Cancelled MCHC Cancelled RDW Cancelled Plt Count Cancelled MPV Cancelled Immature Gran % (Auto) Cancelled Neut % (Auto) Cancelled Lymph % (Auto) Cancelled [place] % (Auto) Cancelled Eos % (Auto) Cancelled Baso % (Auto) Cancelled Lymph # (Auto) Cancelled [place] # (Auto) Cancelled Eos # (Auto) Cancelled Baso # (Auto) Cancelled Abs Immat Gran (auto) Cancelled Absolute Neuts (auto) Cancelled Absolute Nucleated RBC Cancelled Nucleated RBC % (auto) Cancelled PT INR Anion Gap Estim Creat Clear Calc Estimated GFR Random Glucose Lactic Acid Calcium Magnesium Total Bilirubin AST ALT Alkaline Phosphatase Total Creatine Kinase Troponin I High Sens Total Protein Albumin Stool Occult Blood Ethyl Alcohol COVID-19 ([facility]) COVID-19 Clin Com Imaging Radiologist's Impressions: Impressions Cervical Spine CT 08/05/22 00:20 IMPRESSION: HEAD: No acute intracranial findings. CERVICAL SPINE: Type III odontoid fracture of C2 as described above. Associated vertebral artery injury on the left cannot be excluded, and this would be better evaluated with CT angiogram. This critical result was discussed with REGIS [place] on 08/05/2022 12:55 AM, and it was ascertained that the content and urgency of the report was understood at the time of direct communication. Head CT 08/05/22 00:20 IMPRESSION: HEAD: No acute intracranial findings. CERVICAL SPINE: Type III odontoid fracture of C2 as described above. Associated vertebral artery injury on the left cannot be excluded, and this would be better evaluated with CT angiogram. This critical result was discussed with REGIS [place] on 08/05/2022 12:55 AM, and it was ascertained that the content and urgency of the report was understood at the time of direct communication. Abdomen/Pelvis CT 08/05/22 01:30 IMPRESSION: 1. No acute findings identified in the chest, abdomen, or pelvis. 2. Upper lobe predominant emphysema. Chest CT 08/05/22 01:30 IMPRESSION: 1. No acute findings identified in the chest, abdomen, or pelvis. 2. Upper lobe predominant emphysema. Head/Neck CTA 08/05/22 01:30 IMPRESSION: 1. No acute findings in the major arteries of the neck. No large vessel occlusion or significant stenosis in the intracranial circulation. 2. Redemonstrated mildly displaced type III odontoid fracture, without significant change from recent prior. Assessment and Plan (1) Normocytic anemia: Status: Acute (2) Positive fecal occult blood test: Status: Acute (3) C2 cervical fracture: Status: Acute (4) Fall: Status: Acute Plan 81-year-old female with past medical history of hyperlipidemia, hypertension a resident of residential presents to the hospital after a fall.found to have normocytic anemia and positive stool occult # acute normocytic anemia - likely secondary to GI blood loss as she has positive fecal occult blood test - dropped from 14 in february to 10 today - will consult GI - monitor CBC # C2 cervical fracture - occurred 1 month ago - continue cervical collar # Fall - will consult pysical therapy # hypertension - low - No evidence of infection - afebrile, no leukocytosis, - likely due to dehydration - will treat with IV F - hold antihypertensives - follow BP # On Enoxparin- full dose - unclear why pt on this med - will hold DVT ppx: SCDs given acute hypotensiona nd blood loss anemia pt will require a min two night inpatient hopsital stay Time Spent With Patient Time: Total time managing care of this patient today ____ minutes. Quality Stroke Does the patient have a stroke diagnosis?: No VTE Prior VTE?: No VTE Risk Level:: Medical - moderate - high VTE Device Contraindication: N/A - Device Ordered VTE Drug Contraindication: Treatment Not Indicated
[2022-08-05 06:53] LABS: Anion Gap 11 (12-20); Blood Urea Nitrogen 7 mg/dL (9-16); Calcium 8.1 mg/dL (8.4-10.2); Carbon Dioxide 21 mmol/L (22-29); Chloride 111 mmol/L (96-108); Estimated Glomerular Filt Rate > 60; Glucose Random 91 mg/dL (60-115); Sodium 139 mmol/L (135-145)
--- NOTE | 2022-08-05 08:43 | PHA.MEDREC ---
Pharmacy Consult ? Medication Reconciliation Pharmacy has completed the medication reconciliation.
[2022-08-05] MEDS: Folic Acid 1 MG TABLET PO (09:36)
[2022-08-05] MEDS: Topiramate 25 MG TABLET 50 MG PO ×2 (09:36→21:41)
[2022-08-05] MEDS: Multivitamin TABLET 1 TAB PO (09:36)
[2022-08-05] MEDS: Thiamine HCL 100 MG TABLET PO (09:36)
[2022-08-05 09:53] LABS: Ferritin 362 ng/mL (10-250); Iron 94 mcg/dL (30-160); Percent Iron Saturation 41 % (15-50); Total Iron Binding Capacity 228 mcg/dL (228-428); Unsaturated Iron Binding 134 ug/dL
--- NOTE | 2022-08-05 10:51 | HO.PM.IMPN ---
Subjective Subjective Date of Service: 08/05/22 Interval History: cc: fall interval history: no complaints Cardiovascular Cardiovascular: Reports no additional cardiovascular complaints Respiratory Respiratory: Reports no additional respiratory complaints Physical Exam Vital Signs: Vital Signs: Last Vital Signs Temp 97.3 F 08/05/22 10:31 Pulse 96 08/05/22 10:31 Resp 18 08/05/22 10:31 BP 159/73 H 08/05/22 10:31 Pulse Ox 97 08/05/22 10:31 O2 Del Method 08/05/22 10:31 BMI result Body Mass Index 25.4 General: AO X 3, no acute distress Resp: CTA bilateral, no accessory muscles used CVS: S1,S2,RRR GI: soft, non tender, non distended Neuro: motor grossly intact, alert Psych: appropriate affect, appropriate insight Objective Data Active Medications Acetaminophen (Acetaminophen 325 Mg Tablet) 650 mg PO Q6H PRN PRN Reason: Pain, Mild (Pain Scale 1-3) Folic Acid (Folic Acid 1 Mg Tablet) 1 mg PO DAILY [facility] Last Admin: 08/05/22 09:36 Dose: 1 mg Documented By: LINDA Lacosamide (Lacosamide 100 Mg Tablet) 200 mg PO BID [facility] Magnesium Hydroxide (Milk Of Magnesia 30 Ml Oral.Susp) 5 ml PO DAILY PRN PRN Reason: Constipation Melatonin (Melatonin 3 Mg Tablet) 3 mg PO BEDTIME PRN PRN Reason: Insomnia Multivitamins/Vitamin C (Multivitamin Tablet) 1 tab PO DAILY [facility] Last Admin: 08/05/22 09:36 Dose: 1 tab Documented By: LINDA Ondansetron HCl (Ondansetron Hcl 4 Mg/2 Ml Vial) 4 mg IVPUSH Q8H PRN PRN Reason: Nausea and Vomiting Pharmacy Consult (Consult Rx Perform Med Rec) 1 each MISCELLANE ONCE PRN PRN Reason: Consult order Polyethylene Glycol (Polyethylene Glycol 3350 17 Gm Powd.Pack) 17 gm PO DAILY PRN PRN Reason: Constipation Pyridoxine HCl (Pyridoxine Hcl (Vitamin B6) 50 Mg Tablet) 50 mg PO DAILY [facility] Sodium Chloride (0.9 % Sodium Chloride Flush 3 Ml Syringe) 3 ml IVFLUSH QSHIFT [facility] Last Admin: 08/05/22 08:35 Dose: Not Given Documented By: LINDA Non-Admin Reason: IV Running Thiamine HCl (Thiamine Hcl 100 Mg Tablet) 100 mg PO DAILY [facility] Last Admin: 08/05/22 09:36 Dose: 100 mg Documented By: LINDA Topiramate (Topiramate 25 Mg Tablet) 50 mg PO BID [facility] Last Admin: 08/05/22 09:36 Dose: 50 mg Documented By: LINDA Labs CBC & Chem 7: 08/05/22 06:02 08/05/22 06:32 Labs: Laboratory Results - last 24 hr 08/05/22 08/05/22 08/05/22 00:31 00:31 00:31 MCV 86.8 MCH 29.3 MCHC 33.8 RDW 13.9 Plt Count 225 MPV 10.4 Immature Gran % (Auto) 0.5 H Neut % (Auto) 78.4 H Lymph % (Auto) 13.4 L [place] % (Auto) 6.9 Eos % (Auto) 0.5 Baso % (Auto) 0.3 Lymph # (Auto) 1.3 [place] # (Auto) 0.7 Eos # (Auto) 0.1 Baso # (Auto) 0.0 Abs Immat Gran (auto) 0.05 H Absolute Neuts (auto) 7.5 Absolute Nucleated RBC 0.000 Nucleated RBC % (auto) 0.0 PT INR Anion Gap 13 Estim Creat Clear Calc 57.0 Estimated GFR > 60 Random Glucose 111 Lactic Acid Calcium 9.3 Magnesium 2.0 Iron TIBC % Saturation Unsat Iron Binding Ferritin Total Bilirubin 0.6 AST 36 H ALT 62 H Alkaline Phosphatase 128 H Total Creatine Kinase 100 Troponin I High Sens Total Protein 6.3 L Albumin 3.5 Stool Occult Blood Ethyl Alcohol COVID-19 ([facility]) Negative COVID-19 Clin Com See Note 08/05/22 08/05/22 08/05/22 00:31 00:31 00:31 MCV MCH MCHC RDW Plt Count MPV Immature Gran % (Auto) Neut % (Auto) Lymph % (Auto) [place] % (Auto) Eos % (Auto) Baso % (Auto) Lymph # (Auto) [place] # (Auto) Eos # (Auto) Baso # (Auto) Abs Immat Gran (auto) Absolute Neuts (auto) Absolute Nucleated RBC Nucleated RBC % (auto) PT 12.8 INR 1.1 Anion Gap Estim Creat Clear Calc Estimated GFR Random Glucose Lactic Acid Calcium Magnesium Iron TIBC % Saturation Unsat Iron Binding Ferritin Total Bilirubin AST ALT Alkaline Phosphatase Total Creatine Kinase Troponin I High Sens < 3.5 Total Protein Albumin Stool Occult Blood Ethyl Alcohol < 10 COVID-19 ([facility]) COVID-19 [employer] Com 08/05/22 08/05/22 08/05/22 01:11 06:02 06:02 MCV 87.5 MCH 29.4 MCHC 33.6 RDW 14.0 Plt Count 170 MPV 10.6 Immature Gran % (Auto) 0.6 H Neut % (Auto) 66.9 Lymph % (Auto) 24.9 [place] % (Auto) 6.8 Eos % (Auto) 0.5 Baso % (Auto) 0.3 Lymph # (Auto) 1.6 [place] # (Auto) 0.4 Eos # (Auto) 0.0 Baso # (Auto) 0.0 Abs Immat Gran (auto) 0.04 H Absolute Neuts (auto) 4.2 Absolute Nucleated RBC 0.000 Nucleated RBC % (auto) 0.0 PT INR Anion Gap Estim Creat Clear Calc Estimated GFR Random Glucose Lactic Acid 1.6 Calcium Magnesium Iron TIBC % Saturation Unsat Iron Binding Ferritin Total Bilirubin AST ALT Alkaline Phosphatase Total Creatine Kinase Troponin I High Sens Total Protein Albumin Stool Occult Blood POSITIVE Ethyl Alcohol COVID-19 ([facility]) COVID-19 [place] 08/05/22 08/05/22 06:02 06:32 MCV Cancelled MCH Cancelled MCHC Cancelled RDW Cancelled Plt Count Cancelled MPV Cancelled Immature Gran % (Auto) Cancelled Neut % (Auto) Cancelled Lymph % (Auto) Cancelled [place] % (Auto) Cancelled Eos % (Auto) Cancelled Baso % (Auto) Cancelled Lymph # (Auto) Cancelled [place] # (Auto) Cancelled Eos # (Auto) Cancelled Baso # (Auto) Cancelled Abs Immat Gran (auto) Cancelled Absolute Neuts (auto) Cancelled Absolute Nucleated RBC Cancelled Nucleated RBC % (auto) Cancelled PT INR Anion Gap 11 L Estim Creat Clear Calc 66.0 Estimated GFR > 60 Random Glucose 91 Lactic Acid Calcium 8.1 L D Magnesium Iron 94 TIBC 228 % Saturation 41 Unsat Iron Binding 134 Ferritin 362 H Total Bilirubin AST ALT Alkaline Phosphatase Total Creatine Kinase Troponin I High Sens Total Protein Albumin Stool Occult Blood Ethyl Alcohol COVID-19 ([place]) COVID-[employer] Com Assessment and Plan (1) Positive fecal occult blood test: Status: Acute Assessment and Plan: 81F PMH HTN, HLD, etoh dependence with cirrhosis, recent prolonged hospitalization at [facility] after being found in bathtub 07/11/22 presumed LOC, fall, complicated by C2 cervical fracture, cerberal micro-hemorrhages, seizures, was discharged to SNF 08/01/22, now presenting to [facility] after unwitnessed fall (patient denies LOC). unwitnessed fall differential includes orthostatic hypotension, breakthrough seizure, mechanical fall due to peripheral neuropathy from ETOH check orthostatics acute normocytic anemia hgb was 12.2 on 07/31/22 now 8.9 possible gi bleed, in [facility] had one episode of BRBPR, has cirrhotic morphology of liver on MRI iron studies more consistent with inflammation GI eval C2 cervical fracture occurred 07/11/22 continue cervical collar 3 months (end oct 11, 2022) hypertension bp fluctuating, check orthostatics, hold antihypertensives for now seizure disorder newly diagnosed in [facility] on veeg continue vimpat, tomapax etoh dependence with cirrhosis gi follow up dvt prophylaxis - mechanical due to suspicion of gi bleed full code reason for continued hospitalization:work up of acute anemia Time Spent With Patient Time: Total time managing care of this patient today ____ minutes. Quality Stroke Does the patient have a stroke diagnosis?: No VTE Prior VTE?: No VTE Risk Level:: Medical - moderate - high VTE Device Contraindication: N/A - Device Ordered VTE Drug Contraindication: Treatment Not Indicated
--- NOTE | 2022-08-05 14:48 | PM.GICN ---
History of Present Illness Data of Consult Service Date: 08/05/22 Requesting physician: Divya Chavis Primary Care Provider: Vijay Serrano, [facility]- HPI Reason for consult: Anemia This is an 81-year-old female with past medical history of alcohol use disorder, hypertension, osteoporosis, colon polyps, with a recent history of cervical spine fracture 1 month ago, who presented from the rehab for another fall. Gastroenterology has been consulted for acute drop in hemoglobin. Her baseline hemoglobin is around 12 (last checked within a week), and on admission to the hospital had been noted to have a hemoglobin of 10, which has now dropped further to around 8. History was obtained from the patient as well as the chart as patient is not reliable historian. Patient currently has no gastrointestinal complaints to include abdominal pain, nausea, vomiting, changes in bowel habits. She does not recall seeing any black stool or maroon stool in the last few weeks. As mentioned above, she had a fall 1 month ago which was complicated by C2 cervical fracture cerebral microhemorrhages in seizures. Per discussion with hospitalist, there was also mild cord compression associated with this fracture. Patient remains in a cervical collar which is to continue for total of 3 months. She does not recall having an upper endoscopy, but has had a colonoscopy in the past. Last colonoscopy was less than 10 years ago, and tells me she will be due for a colonoscopy soon. However, from review of the chart, her Cologuard test was positive, and per last PCP note, patient had declined a colonoscopy. Review of Systems Review of Systems: Yes all other systems are reviewed and are negative PMFSH Past Medical History Medical History Alcohol use disorder Alcoholic cirrhosis Anxiety Distal radius fracture, right (~2020) Epilepsy Essential hypertension Hyperlipidemia Osteoporosis (~2017) Personal history of nicotine dependence Right patella fracture (~2011) Tubulovillous adenoma of colon (~2001) Family History Family History Other Substance use disorder Surgical History Surgical History History of appendectomy History of bronchoscopy (~2009) History of colonoscopy (~2001) History of cystoscopy (~2001) History of hysterectomy History of right knee surgery (~2011) History of surgery on right wrist (~2020) History of tonsillectomy (~1943) Social History Social History Household Members: Other Housing: Assisted Living Facility Alcohol intake: current Alcohol intake frequency: 0-2 drinks per day Alcohol type: hard liquor Patient Tobacco Use Status: Never used Tobacco Cigarette Packs Per Day: 0.5 Smoked in Last 30 Days: No e-Cigarette/Vaping Use: Never Used Patient Interested in Nicotine Replacement: No Patient Given Instructions on How to Stop Smoking: No Second Hand Smoke Exposure: No Currently Displaying Signs/Symptoms of Drug Intoxication Withdrawal: No Have you been hit, kicked, punched, or otherwise hurt by someone within the past year? If so, by whom?: No Do you feel safe in your current relationship?: No Is there a partner from a previous relationship who is making you feel unsafe now?: No Are you made to feel afraid or neglected: No Advance Directives: Yes Advance Directives on File: Yes Advance Directives Date on File: 08/05/22 Do you have thoughts of harming others: None Do you have a plan to hurt others: No Plan Patient : No Poor oral hygiene: No Current occupational status: retired Current occupation: Right Handed Cognitive needs: No Hearing needs: No Vision needs: No Meds Allergies Allergy/AdvReac Type Severity Reaction Status Date / Time atorvastatin Allergy Mild Swelling Verified 03/24/22 15:00 alendronate sodium [Fosamax] Allergy Unknown unknown Verified 03/24/22 14:42 amitriptyline [From Elavil] AdvReac Mild Hallucinati Verified 08/05/22 08:14 ons ciprofloxacin [Cipro] AdvReac Unknown blister Verified 03/24/22 14:42 lisinopril AdvReac Unknown throat Verified 03/24/22 14:42 swelling, cough Active Medications: Current Medications Acetaminophen (Acetaminophen 325 Mg Tablet) 650 mg PO Q6H PRN PRN Reason: Pain, Mild (Pain Scale 1-3) Folic Acid (Folic Acid 1 Mg Tablet) 1 mg PO DAILY [facility] Last Admin: 08/05/22 09:36 Dose: 1 mg Lacosamide (Lacosamide 100 Mg Tablet) 200 mg PO BID [facility] Last Admin: 08/05/22 11:07 Dose: Not Given Magnesium Hydroxide (Milk Of Magnesia 30 Ml Oral.Susp) 5 ml PO DAILY PRN PRN Reason: Constipation Melatonin (Melatonin 3 Mg Tablet) 3 mg PO BEDTIME PRN PRN Reason: Insomnia Multivitamins/Vitamin C (Multivitamin Tablet) 1 tab PO DAILY [facility] Last Admin: 08/05/22 09:36 Dose: 1 tab Ondansetron HCl (Ondansetron Hcl 4 Mg/2 Ml Vial) 4 mg IVPUSH Q8H PRN PRN Reason: Nausea and Vomiting Pantoprazole Sodium (Pantoprazole Sodium 40 Mg/10 Ml Vial) 40 mg IVPUSH BID@0630,1630 [facility] Pharmacy Consult (Consult Rx Perform Med Rec) 1 each MISCELLANE ONCE PRN PRN Reason: Consult order Polyethylene Glycol (Polyethylene Glycol 3350 17 Gm Powd.Pack) 17 gm PO DAILY PRN PRN Reason: Constipation Pyridoxine HCl (Pyridoxine Hcl (Vitamin B6) 50 Mg Tablet) 50 mg PO DAILY [facility] Last Admin: 08/05/22 11:07 Dose: Not Given Sodium Chloride (0.9 % Sodium Chloride Flush 3 Ml Syringe) 3 ml IVFLUSH QSHIFT [facility] Last Admin: 08/05/22 08:35 Dose: Not Given Thiamine HCl (Thiamine Hcl 100 Mg Tablet) 100 mg PO DAILY [facility] Last Admin: 08/05/22 09:36 Dose: 100 mg Topiramate (Topiramate 25 Mg Tablet) 50 mg PO BID [facility] Last Admin: 08/05/22 09:36 Dose: 50 mg Home Medications Medication Instructions Recorded Confirmed Last Taken Type acetaminophen 325 mg tablet 650 mg PO Q6H PRN Pain 08/05/22 08/05/22 Unknown History (Tylenol) bisacodyl 10 mg rectal suppository 10 mg [place] DAILY PRN Constipation 08/05/22 08/05/22 Unknown History enoxaparin 40 mg/0.4 mL 40 mg subcut DAILY 08/05/22 08/05/22 Unknown History subcutaneous syringe folic acid 1 mg tablet 1 mg PO DAILY 08/05/22 08/05/22 Unknown History lacosamide 200 mg tablet 200 mg PO BID 08/05/22 08/05/22 Unknown History magnesium hydroxide 400 mg/5 mL 5 ml PO DAILY PRN Constipation 08/05/22 08/05/22 Unknown History oral suspension (Milk of Magnesia) melatonin 3 mg tablet 3 mg PO BEDTIME PRN Insomnia 08/05/22 08/05/22 Unknown History midazolam 5 mg/spray (0.1 mL) 5 mg intranasal Q3M 08/05/22 08/05/22 Unknown History nasal spray multivitamin 1 tab PO DAILY 08/05/22 08/05/22 Unknown History polyethylene glycol 3350 17 gram 17 g PO DAILY PRN Constipation 08/05/22 08/05/22 Unknown History oral powder packet (Miralax) pyridoxine (vitamin B6) 50 mg 50 mg PO DAILY 08/05/22 08/05/22 Unknown History tablet sennosides 8.6 mg tablet 8.6 mg PO BID 08/05/22 08/05/22 Unknown History thiamine HCl (vitamin B1) 100 mg 100 mg PO DAILY 08/05/22 08/05/22 Unknown History tablet topiramate 50 mg tablet 50 mg PO BID 08/05/22 08/05/22 Unknown History Physical Exam Vital Signs: Vital Signs: Last Vital Signs Temp 97.3 F 08/05/22 10:31 Pulse 96 08/05/22 12:02 Resp 18 08/05/22 10:31 BP 159/73 H 08/05/22 12:02 Pulse Ox 97 08/05/22 12:02 O2 Del Method 08/05/22 10:31 BMI result Body Mass Index 25.4 Gen appear: No acute distress HEENT: C-spine collar in place Chest: No overt resp distress CVS: S1/S2, regular Abd: soft, nontender, nondistended Psych: Stable affect Neuro: A/Ox2, noted to move all extremities spontaneously Ext: no peripheral edema Results Labs CBC & Chem 7: 08/05/22 06:02 08/05/22 06:32 Labs: Short CBC 08/05/22 08/05/22 08/05/22 Range/Units 00:31 06:02 06:02 WBC 9.5 6.3 Cancelled (4.8-10.8) X10*3/uL Hgb 10.2 L D 8.9 L Cancelled (12.0-16.0) g/dl Hct 30.2 L D 26.5 L Cancelled (37.0-47.0) % Plt Count 225 170 Cancelled (160-400) X10*3/uL BMP 08/05/22 08/05/22 00:31 06:32 Sodium 137 139 Potassium 4.1 4.0 Chloride 105 111 H Carbon Dioxide 23 21 L BUN 10 7 L Creatinine 0.66 0.57 Calcium 9.3 8.1 L D Cardiac Enzymes 08/05/22 Range/Units 00:31 Total Creatine Kinase 100 (26-140) U/L Liver Function 08/05/22 Range/Units 00:31 Total Bilirubin 0.6 (0.0-1.0) mg/dL AST 36 H (5-31) U/L ALT 62 H (0-31) U/L Alkaline Phosphatase 128 H (39-117) U/L Albumin 3.5 (3.5-5.0) g/dL Assessment and Plan (1) Normocytic anemia: Status: Acute (2) C2 cervical fracture: Status: Acute Plan Differentials include anemia blood loss, although patient has not demonstrated any overt GI bleeding so far, inflammatory anemia. Her subacute cervical fracture precludes diagnostic endoscopy at this time especially as we do not have in house neurosurgery or trauma surgery. Recommendations: -monitor H&H b.i.d. -ensure at least 2 peripheral IV access at all times -transfuse for Hb less than 7 -Start IV PPI BID for empiric tx of PUD/esophagitis/gastrtis/duodenitis -if patient demonstrates overt GI bleeding, and/or continues to drop H/H will need endoscopic evaluation in which case she will likely need to be transferred to a tertiary care center with [facility] backup. This was reviewed with the hospitalist team. Thank you for allowing me to participate in her care. Please do not hesitate to reach out for any questions or concerns Time Spent With Patient Time: Total time managing care of this patient today ____ minutes. Procedures Date of Service Date of Service: 08/05/22
[2022-08-05] MEDS: 0.9 % Sodium Chloride Flush 3 ML SYRINGE IVFLUSH ×2 (15:28→19:34)
[2022-08-05] MEDS: Pantoprazole Sodium 40 MG/10 ML VIAL IVPUSH (15:28)
[2022-08-05] MEDS: Melatonin 3 MG TABLET PO (21:41)
[2022-08-05] MEDS: Lacosamide 100 MG TABLET 200 MG PO (21:41)
[2022-08-06 03:50] VITALS: BP 140/61; PULSE 83; RESP 16; TEMP 36; O2SAT 99
[2022-08-06] MEDS: Pantoprazole Sodium 40 MG/10 ML VIAL IVPUSH ×2 (06:27→15:49)
[2022-08-06 07:23] VITALS: BP 144/69; PULSE 82; RESP 17; TEMP 36; O2SAT 97
--- NOTE | 2022-08-06 09:09 | HO.PM.IMPN ---
Subjective Subjective Date of Service: 08/06/22 Interval History: cc: fall interval history: no complaints Cardiovascular Cardiovascular: Reports no additional cardiovascular complaints Respiratory Respiratory: Reports no additional respiratory complaints Physical Exam Vital Signs: Vital Signs: Last Vital Signs Temp 96.8 F 08/06/22 07:23 Pulse 82 08/06/22 07:23 Resp 17 08/06/22 07:23 BP 144/69 H 08/06/22 07:23 Pulse Ox 97 08/06/22 07:23 O2 Del Method 08/06/22 07:23 BMI result Body Mass Index 25.4 Gen appear: No acute distress HEENT: C-spine collar in place Chest: No overt resp distress CVS: S1/S2, regular Abd: soft, nontender, nondistended Psych: Stable affect Neuro: A/Ox2, noted to move all extremities spontaneously Ext: no peripheral edema Objective Data Active Medications Acetaminophen (Acetaminophen 325 Mg Tablet) 650 mg PO Q6H PRN PRN Reason: Pain, Mild (Pain Scale 1-3) Folic Acid (Folic Acid 1 Mg Tablet) 1 mg PO DAILY [facility] BEDS AT [facility] Last Admin: 08/05/22 09:36 Dose: 1 mg Documented By: LINDA Lacosamide (Lacosamide 100 Mg Tablet) 200 mg PO BID COUNTS INCLUDE 234 BEDS AT THE [facility] Last Admin: 08/05/22 21:41 Dose: 200 mg Documented By: FABY Magnesium Hydroxide (Milk Of Magnesia 30 Ml Oral.Susp) 5 ml PO DAILY PRN PRN Reason: Constipation Melatonin (Melatonin 3 Mg Tablet) 3 mg PO BEDTIME PRN PRN Reason: Insomnia Last Admin: 08/05/22 21:41 Dose: 3 mg Documented By: FABY Multivitamins/Vitamin C (Multivitamin Tablet) 1 tab PO DAILY [facility]S INCLUDE 234 BEDS AT THE [facility] Last Admin: 08/05/22 09:36 Dose: 1 tab Documented By: LINDA Ondansetron HCl (Ondansetron Hcl 4 Mg/2 Ml Vial) 4 mg IVPUSH Q8H PRN PRN Reason: Nausea and Vomiting Pantoprazole Sodium (Pantoprazole Sodium 40 Mg/10 Ml Vial) 40 mg IVPUSH BID@0630,1630 COUNTS INCLUDE 234 BEDS AT THE [facility] Last Admin: 08/06/22 06:27 Dose: 40 mg Documented By: ROMIE Pharmacy Consult (Consult Rx Perform Med Rec) 1 each MISCELLANE ONCE PRN PRN Reason: Consult order Polyethylene Glycol (Polyethylene Glycol 3350 17 Gm Powd.Pack) 17 gm PO DAILY PRN PRN Reason: Constipation Pyridoxine HCl (Pyridoxine Hcl (Vitamin B6) 50 Mg Tablet) 50 mg PO DAILY [facility]S [facility]CLUDE 234 BEDS AT [facility] Last Admin: 08/05/22 11:07 Dose: Not Given Documented By: COTEMA Non-Admin Reason: Not In Room Sodium Chloride (0.9 % Sodium Chloride Flush 3 Ml Syringe) 3 ml IVFLUSH QSHIFT COUNTS INCLUDE 234 BEDS AT THE [facility] Last Admin: 08/05/22 19:34 Dose: 3 ml Documented By: FABY Thiamine HCl (Thiamine Hcl 100 Mg Tablet) 100 mg PO DAILY COUNTS INCLUDE 234 BEDS AT THE [facility] Last Admin: 08/05/22 09:36 Dose: 100 mg Documented By: LINDA Topiramate (Topiramate 25 Mg Tablet) 50 mg PO BID COUNTS INCLUDE 234 BEDS AT THE [facility] Last Admin: 08/05/22 21:41 Dose: 50 mg Documented By: FABY Labs CBC & Chem 7: 08/05/22 06:02 08/05/22 06:32 Labs: Laboratory Results - last 24 hr 08/05/22 06:32 Iron 94 TIBC 228 % Saturation 41 Unsat Iron Binding 134 Ferritin 362 H Assessment and Plan (1) Positive fecal occult blood test: Status: Acute Assessment and Plan: 81F PMH HTN, HLD, etoh dependence with cirrhosis, recent prolonged hospitalization at [facility] after being found in bathtub 07/11/22 presumed LOC, fall, complicated by C2 cervical fracture, cerberal micro-hemorrhages, seizures, was discharged to SNF 08/01/22, now presenting to [facility] after unwitnessed fall (patient denies LOC). unwitnessed fall differential includes orthostatic hypotension, breakthrough seizure, mechanical fall due to peripheral neuropathy from ETOH acute normocytic anemia hgb was 12.2 on 07/31/22 dropped to 8.9 on 08/05/22, follow up repeat today possible gi bleed, in [facility] had one episode of BRBPR, has cirrhotic morphology of liver on MRI iron studies more consistent with inflammation GI appreciated C2 cervical fracture occurred 07/11/22 continue cervical collar 3 months (end oct 11, 2022) hypertension bp fluctuating, check orthostatics, hold antihypertensives for now seizure disorder newly diagnosed in [facility] on veeg continue vimpat, tomapax etoh dependence with cirrhosis gi following dvt prophylaxis - mechanical due to suspicion of gi bleed full code reason for continued hospitalization:work up of acute anemia Time Spent With Patient Time: Total time managing care of this patient today ____ minutes. Quality Stroke Does the patient have a stroke diagnosis?: No VTE Prior VTE?: No VTE Risk Level:: Medical - moderate - high VTE Device Contraindication: N/A - Device Ordered VTE Drug Contraindication: Treatment Not Indicated
[2022-08-06] MEDS: Folic Acid 1 MG TABLET PO (10:34)
[2022-08-06] MEDS: Multivitamin TABLET 1 TAB PO (10:34)
[2022-08-06] MEDS: Lacosamide 100 MG TABLET 200 MG PO ×2 (10:34→19:19)
[2022-08-06] MEDS: Pyridoxine HCl (Vitamin B6) 50 MG TABLET PO (10:34)
[2022-08-06] MEDS: 0.9 % Sodium Chloride Flush 3 ML SYRINGE IVFLUSH ×3 (10:35→19:19)
[2022-08-06] MEDS: Thiamine HCL 100 MG TABLET PO (10:35)
[2022-08-06] MEDS: Topiramate 25 MG TABLET 50 MG PO ×2 (10:35→19:19)
[2022-08-06 11:01] LABS: Hematocrit 30.6 % (37.0-47.0); Hemoglobin 10.3 g/dl (12.0-16.0); Mean Corpuscular HGB Conc 33.7 g/dl (31.0-35.0); Mean Corpuscular Hemoglobin 29.4 pg (27.0-33.0); Mean Corpuscular Volume 87.4 fL (80.0-98.0); Mean Platelet Volume 11.6 fL (9.4-12.3); Platelet Count 226 X10*3/uL (160-400); Red Cell Distribution Width 14.1 % (11.0-16.0); White Blood Count 6.5 X10*3/uL (4.8-10.8)
[2022-08-06 11:46] LABS: Anion Gap 12 (12-20); Blood Urea Nitrogen 6 mg/dL (9-16); Calcium 8.9 mg/dL (8.4-10.2); Carbon Dioxide 22 mmol/L (22-29); Chloride 107 mmol/L (96-108); Creatinine Clr Calc Pharmacy 59.7; Estimated Glomerular Filt Rate > 60; Glucose Fasting 128 mg/dL (60-99); Potassium 3.5 mmol/L (3.3-5.1); Sodium 137 mmol/L (135-145)
[2022-08-06 16:00] VITALS: BP 152/61; PULSE 82; RESP 20; TEMP 36.3; O2SAT 98
[2022-08-06 19:43] VITALS: BP 148/59; PULSE 78; RESP 20; TEMP 37.1; O2SAT 100
[2022-08-07 04:00] VITALS: BP 140/62; PULSE 77; RESP 16; TEMP 36.9; O2SAT 99
[2022-08-07] MEDS: Pantoprazole Sodium 40 MG/10 ML VIAL IVPUSH (05:46)
[2022-08-07 07:37] VITALS: BP 132/61; PULSE 88; RESP 18; TEMP 36.3; O2SAT 100
[2022-08-07 07:37] LABS: Hematocrit 29.3 % (37.0-47.0); Hemoglobin 9.9 g/dl (12.0-16.0); Mean Corpuscular HGB Conc 33.8 g/dl (31.0-35.0); Mean Corpuscular Hemoglobin 29.6 pg (27.0-33.0); Mean Corpuscular Volume 87.7 fL (80.0-98.0); Platelet Count 207 X10*3/uL (160-400); Red Blood Count 3.34 X10*6/uL (4.20-5.50); Red Cell Distribution Width 14.2 % (11.0-16.0); White Blood Count 6.5 X10*3/uL (4.8-10.8)
[2022-08-07 07:56] LABS: Anion Gap 12 (12-20); Blood Urea Nitrogen 6 mg/dL (9-16); Calcium 8.8 mg/dL (8.4-10.2); Carbon Dioxide 20 mmol/L (22-29); Chloride 108 mmol/L (96-108); Creatinine Clr Calc Pharmacy 56.1; Estimated Glomerular Filt Rate > 60; Glucose Fasting 101 mg/dL (60-99); Potassium 3.6 mmol/L (3.3-5.1); Sodium 136 mmol/L (135-145)
[2022-08-07] MEDS: Multivitamin TABLET 1 TAB PO (09:16)
[2022-08-07] MEDS: Topiramate 25 MG TABLET 50 MG PO (09:16)
[2022-08-07] MEDS: Folic Acid 1 MG TABLET PO (09:16)
[2022-08-07] MEDS: Pyridoxine HCl (Vitamin B6) 50 MG TABLET PO (09:16)
[2022-08-07] MEDS: Thiamine HCL 100 MG TABLET PO (09:16)
[2022-08-07] MEDS: Lacosamide 100 MG TABLET 200 MG PO (09:16)
--- NOTE | 2022-08-07 09:17 | PM.DS ---
DS: Providers Provider Date of Service: 08/07/22 Date of admission: 08/05/22 05:47 Primary care physician: JENARO Sun Consults: 08/05/22 06:54 Consult to Gastroenterology Routine Consulting Provider: Dahlia Cueto Reason for consultation: positive occult blood, acute anemia Has provider been notified: No DS: Diagnosis Discharge Diagnosis (1) Positive fecal occult blood test: Status: Acute DS: Summary Hospital Course Hospital Course: from initial hpi: Chief Complaint: fall Patient is a resident of [facility], with a recent cervical spine fracture in a collar, has a history of hyperlipidemia, hypertension, history of alcohol use disorder, with a history of cervical spine fracture after a fall a month ago presents to the hospital with complaints of another fall.? It appears the patient was sitting on the toilet, and fill, she denied any loss of consciousness, no dizziness, no palpitations.? Patient currently sleeping wakes up and falls back asleep.? History is obtained mostly from ED provider and EMR.? Patient at baseline is a poor historian, and was unable to recall the full event although denies losing consciousness.? She has reported to their ED staff and provider that she is on a blood thinner, for unclear reason. On arrival to the ED patient hemodynamically stable with no significant abnormal vitals except for a slightly elevated respiratory rate Labs are significant for WBC count of 9.5, hemoglobin of 10.2 which is significantly dropped from 14.3 in February of this year, hematocrit 30.2, AST of 36, ALT of 62, alk-phos of 128, COVID-19 negative, alcohol level negative, stool occult blood positive Head CT angiogram shows no acute findings in the major arteries of the neck, no large vessel occlusion or significant stenosis in the intracranial circulation, redemonstrated mildly displaced type 3 odontoid fracture without significant change from recent imaging Chest CT shows no acute findings in the abdomen chest or pelvis, shows emphysema from initial hpi: Patient was admitted for unwitnessed fall. Differential includes orthostatic hypotension, breakthrough seizure(less likely), mechanical fall due to cervical collar and/or peripheral neuropathy from alcohol. Patient's amlodipine was held and blood pressures remained stable. Patient was also noted to have acute normocytic anemia. Hemoglobin had been 12.2 on 07/31/2022 and dropped to 8.9 on 08/05/2022. Other than some bright red blood per rectum at previous hospitalization at [facility] there was no active GI bleed noticed. Iron studies were consistent with inflammation. She was seen by GI who recommended PPI. Patient is not a good candidate for endoscopy at this time given C2 cervical fracture. Hemoglobin now stable. Patient follow-up outpatient. For her C2 cervical fracture which occurred on 07/11/22, she was worked up at [facility] and recommendations were to continue cervical collar for 3 months (end 10/11/2022). For patient's hypertension, amlodipine was held as mentioned. Blood pressures have been normal. Will continue to hold amlodipine. For seizure disorder, newly diagnosed on admission at [facility] on video EEG. Patient will continue Vimpat and Topamax. For patient's alcohol dependence with cirrhosis noted on imaging. Abstinence is recommended and patient will follow up with GI as outpatient. Patient is feeling better will be discharged back to assisted facility. Time Spent with Patient Time attestation: Total time managing care of this patient today ____ minutes. Discharge coordination time: Greater than 30 minutes Quality: Safe Use of Opioids Does Pt have an Active Cancer Diagnosis on the Problem List?: No Quality: Stroke Does the patient have a stroke diagnosis?: No Physical Exam Vital Signs: Vital Signs: Last Vital Signs Temp 97.3 F 08/07/22 07:37 Pulse 88 08/07/22 07:37 Resp 18 08/07/22 07:37 BP 132/61 08/07/22 07:37 Pulse Ox 100 08/07/22 07:37 O2 Del Method 08/07/22 07:37 BMI result Body Mass Index 25.4 Gen appear: No acute distress HEENT: C-spine collar in place Chest: No overt resp distress CVS: S1/S2, regular Abd: soft, nontender, nondistended Psych: Stable affect Neuro: A/Ox2, noted to move all extremities spontaneously Ext: no peripheral edema DS: Data Data Completed and Pending Labs on day of discharge: Laboratory Results - last 24 hr 08/06/22 08/06/22 08/07/22 09:52 09:52 06:41 WBC 6.5 6.5 RBC 3.50 L 3.34 L Hgb 10.3 L 9.9 L Hct 30.6 L 29.3 L MCV 87.4 87.7 MCH 29.4 29.6 MCHC 33.7 33.8 RDW 14.1 14.2 Plt Count 226 D 207 MPV 11.6 12.0 Absolute Nucleated RBC 0.000 0.000 Nucleated RBC % (auto) 0.0 0.0 Sodium 137 Potassium 3.5 Chloride 107 Carbon Dioxide 22 Anion Gap 12 BUN 6 L Creatinine 0.63 Estim Creat Clear Calc 59.7 Estimated GFR > 60 Fasting Glucose 128 H Calcium 8.9 D 08/07/22 06:41 WBC RBC Hgb Hct MCV MCH MCHC RDW Plt Count MPV Absolute Nucleated RBC Nucleated RBC % (auto) Sodium 136 Potassium 3.6 Chloride 108 Carbon Dioxide 20 L Anion Gap 12 BUN 6 L Creatinine 0.67 Estim Creat Clear Calc 56.1 Estimated GFR > 60 Fasting Glucose 101 H Calcium 8.8 Discharge Plan Discharge Anticipated Discharge Date/Time: 08/07/22 09:14 Patient Disposition: Xfer SNF Discharge Diagnosis: fall Referrals: Vijay Serrano, [facility] [Primary Care Provider] - 1 Week Discharge Medications: New omeprazole 40 mg capsule,delayed release(DR/EC) 40 mg PO BID Qty: 60 0RF Continued (DME) walker with wheels, seat & brakes See Rx Instructions .Route .MEDSUPPLY Qty: 1 0RF Rx Instructions: daily use multivitamin Tablet 1 tab PO DAILY sennosides 8.6 mg Tablet 8.6 mg PO BID acetaminophen [Tylenol] 325 mg Tablet 650 mg PO Q6H PRN (Reason: Pain) polyethylene glycol 3350 [Miralax] 17 gram Powder In Packet 17 g PO DAILY PRN (Reason: Constipation) thiamine HCl (vitamin B1) 100 mg Tablet 100 mg PO DAILY melatonin 3 mg Tablet 3 mg PO BEDTIME PRN (Reason: Insomnia) magnesium hydroxide [Milk of Magnesia] 400 mg/5 mL Suspension 5 ml PO DAILY PRN (Reason: Constipation) bisacodyl 10 mg Suppository 10 mg [place] DAILY PRN (Reason: Constipation) pyridoxine (vitamin B6) 50 mg Tablet 50 mg PO DAILY folic acid 1 mg Tablet 1 mg PO DAILY topiramate 50 mg Tablet 50 mg PO BID lacosamide 200 mg Tablet 200 mg PO BID midazolam 5 mg/spray (0.1 mL) [place],Non-Aerosol 5 mg INTRANASAL Q3M Discontinued amlodipine 5 mg tablet 5 mg PO DAILY 90 Days Qty: 90 0RF enoxaparin 40 mg/0.4 mL Syringe 40 mg SUBCUT DAILY Discharge Orders: Discharge Order (Routine); Ordered 08/07/22 Ordered By: Carlos Alberto Zaldivar Diet: Advance to usual diet Activity on Discharge: As tolerated Stand Alone Forms: Patient Portal Discharge page Activity Restrictions/Additional Instructions: Take your medications as prescribed. If you were prescribed antibiotics today, it is important that you take your medication to their entirety, do not skip any doses, do not finish them early. Follow-up with your primary care provider this week. Return to the emergency department with new or worsening symptoms. Such as fevers, chills, chest pain, shortness of breath, nausea, vomiting, dizziness, headache, vision changes, lethargy In case of emergency call [address]/CT head/brain wo IV con IMPRESSION: HEAD: No acute intracranial findings. ? CERVICAL SPINE: Type III odontoid fracture of C2 as described above. Associated vertebral artery injury on the left cannot be excluded, and this would be better evaluated with CT angiogram. ? This critical result was discussed with REGIS [place] on 08/05/2022 12:55 AM, and it was ascertained that the content and urgency of the report was understood at the time of direct communication. Care Plan Goals: recovery Health Concerns: fall, anemia Plan of Treatment: stop amlodipine, lovenox (provided ambulating well), start ppi, follow up gi, neurosuregery, continue pt Assessment: see above
--- NOTE | 2022-08-07 09:17 | MHC.CM.PN ---
IMM DELIVERED PT IS IN FROM STR AT [facility] WHERE SHE WOULD LIKE TO RETURN. RETURN REFERRAL SENT TO CENTER. USES A WALKER FOR MOBILITY. +HCP NO COVID VAX. PCP [facility]. DP: PT WILL RETURN TO [facility] FOR STR ON DC VIA BLS TRANSPORT.
--- NOTE | 2022-08-07 09:23 | HO.PM.IMPN ---
Subjective Subjective Date of Service: 08/07/22 Interval History: cc: fall interval history: no complaints Cardiovascular Cardiovascular: Reports no additional cardiovascular complaints Respiratory Respiratory: Reports no additional respiratory complaints Physical Exam Vital Signs: Vital Signs: Last Vital Signs Temp 97.3 F 08/07/22 07:37 Pulse 88 08/07/22 07:37 Resp 18 08/07/22 07:37 BP 132/61 08/07/22 07:37 Pulse Ox 100 08/07/22 07:37 O2 Del Method 08/07/22 07:37 BMI result Body Mass Index 25.4 Gen appear: No acute distress HEENT: C-spine collar in place Chest: No overt resp distress CVS: S1/S2, regular Abd: soft, nontender, nondistended Psych: Stable affect Neuro: A/Ox2, noted to move all extremities spontaneously Ext: no peripheral edema Objective Data Active Medications Acetaminophen (Acetaminophen 325 Mg Tablet) 650 mg PO Q6H PRN PRN Reason: Pain, Mild (Pain Scale 1-3) Folic Acid (Folic Acid 1 Mg Tablet) 1 mg PO DAILY [facility] Last Admin: 08/07/22 09:16 Dose: 1 mg Documented By: JANIS-VENANCIO Lacosamide (Lacosamide 100 Mg Tablet) 200 mg PO BID [facility] Last Admin: 08/07/22 09:16 Dose: 200 mg Documented By: BI Magnesium Hydroxide (Milk Of Magnesia 30 Ml Oral.Susp) 5 ml PO DAILY PRN PRN Reason: Constipation Melatonin (Melatonin 3 Mg Tablet) 3 mg PO BEDTIME PRN PRN Reason: Insomnia Last Admin: 08/05/22 21:41 Dose: 3 mg Multivitamins/Vitamin C (Multivitamin Tablet) 1 tab PO DAILY [facility] Last Admin: 08/07/22 09:16 Dose: 1 tab Documented By: BI Ondansetron HCl (Ondansetron Hcl 4 Mg/2 Ml Vial) 4 mg IVPUSH Q8H PRN PRN Reason: Nausea and Vomiting Pantoprazole Sodium (Pantoprazole Sodium 40 Mg/10 Ml Vial) 40 mg IVPUSH BID@0630,1630 [facility] Last Admin: 08/07/22 05:46 Dose: 40 mg Documented By: ROLANDO Pharmacy Consult (Consult Rx Perform Med Rec) 1 each MISCELLANE ONCE PRN PRN Reason: Consult order Polyethylene Glycol (Polyethylene Glycol 3350 17 Gm Powd.Pack) 17 gm PO DAILY PRN PRN Reason: Constipation Pyridoxine HCl (Pyridoxine Hcl (Vitamin B6) 50 Mg Tablet) 50 mg PO DAILY [facility] Last Admin: 08/07/22 09:16 Dose: 50 mg Documented By: BI Sodium Chloride (0.9 % Sodium Chloride Flush 3 Ml Syringe) 3 ml IVFLUSH QSHIFT [facility] Last Admin: 08/07/22 07:19 Dose: Not Given Documented By: BI Non-Admin Reason: See Note Thiamine HCl (Thiamine Hcl 100 Mg Tablet) 100 mg PO DAILY [facility] Last Admin: 08/07/22 09:16 Dose: 100 mg Documented By: BI Topiramate (Topiramate 25 Mg Tablet) 50 mg PO BID [facility] Last Admin: 08/07/22 09:16 Dose: 50 mg Documented By: BI Labs CBC & Chem 7: 08/07/22 06:41 08/07/22 06:41 Labs: Laboratory Results - last 24 hr 08/06/22 08/06/22 08/07/22 09:52 09:52 06:41 MCV 87.4 87.7 MCH 29.4 29.6 MCHC 33.7 33.8 RDW 14.1 14.2 Plt Count 226 D 207 MPV 11.6 12.0 Absolute Nucleated RBC 0.000 0.000 Nucleated RBC % (auto) 0.0 0.0 Anion Gap 12 Estim Creat Clear Calc 59.7 Estimated GFR > 60 Fasting Glucose 128 H Calcium 8.9 D 08/07/22 06:41 MCV MCH MCHC RDW Plt Count MPV Absolute Nucleated RBC Nucleated RBC % (auto) Anion Gap 12 Estim Creat Clear Calc 56.1 Estimated GFR > 60 Fasting Glucose 101 H Calcium 8.8 Assessment and Plan (1) Positive fecal occult blood test: Status: Acute Assessment and Plan: 81F PMH HTN, HLD, etoh dependence with cirrhosis, recent prolonged hospitalization at [facility] being found in bathtub 07/11/22 presumed LOC, fall, complicated by C2 cervical fracture, cerberal micro-hemorrhages, seizures, was discharged to SNF 08/01/22, now presenting [place] [facility] [place] unwitnessed [place] (patient denies LOC). unwitnessed fall differential includes orthostatic hypotension, breakthrough seizure, mechanical fall due to peripheral neuropathy from ETOH acute normocytic anemia hgb was 12.2 on 07/31/22 dropped to 8.9 on 08/05/22, now stable, 9.9 possible gi bleed, in [facility] had one episode of BRBPR, has cirrhotic morphology of liver on MRI iron studies more consistent with inflammation GI appreciated continue ppi, not safe candidate for EGD due to c2 fracture C2 cervical fracture occurred 07/11/22 continue cervical collar 3 months (end oct 11, 2022) hypertension bp fluctuating, hold antihypertensives for now seizure disorder newly diagnosed in [facility] [place] on veeg continue vimpat, tomapax etoh dependence with cirrhosis gi following dvt prophylaxis - mechanical due to suspicion of gi bleed full code reason for continued hospitalization:safe dispo Time Spent With Patient Time: Total time managing care of this patient today ____ minutes. Quality Stroke Does the patient have a stroke diagnosis?: No VTE Prior VTE?: No VTE Risk Level:: Medical - moderate - high VTE Device Contraindication: N/A - Device Ordered VTE Drug Contraindication: Treatment Not Indicated
--- NOTE | 2022-08-07 09:34 | MHC.CM.PN ---
DP: PT [facility] MEDICALLY CLEARED [facility] RN AWARE. DAUGHTER [place] NOTIFIED. BLS TRANSPORT BOOKED FOR 1 PM [facility]IA [facility]
== END 2022-08-07 14:27 | disposition skilled nursing facility (03) | DRG 312 ==
LOC: HO.ED 08-05 02:15 → HO.EDOVER 08-05 07:14 → HO.S3 08-05 09:08
PROVIDERS: Physician Assistant; Admitting Provider Internal Medicine; Emergency Provider Internal Medicine; PCP Nurse Practitioner Family; Visit Provider Internal Medicine
DX: I95.1 Orthostatic hypotension (principal); S12.100A Unspecified displaced fracture of second cervical vertebra, initial encounter for closed fracture; D62 Acute posthemorrhagic anemia; E78.5 Hyperlipidemia, unspecified; G40.909 Epilepsy, unspecified, not intractable, without status epilepticus; F10.20 Alcohol dependence, uncomplicated; G62.1 Alcoholic polyneuropathy; R19.5 Other fecal abnormalities; I10 Essential (primary) hypertension; K74.60 Unspecified cirrhosis of liver; E86.0 Dehydration; W19.XXXA Unspecified fall, initial encounter; R29.6 Repeated falls; Z91.81 History of falling; Z20.822 Contact with and (suspected) exposure to COVID-19; Z88.8 Allergy status to other drugs, medicaments and biological substances; Z79.899 Other long term (current) drug therapy
CPT/HCPCS: 36415; 70450; 70496; 70498; 71260; 72125; 74177; 80048; 80053; 82077; 82272; 82550; 82728; 83540; 83605; 83735; 84484; 85025; 85027; 85610; 87635; 93005; 96360; 97162; 99218; 99285; Q9967

== ENCOUNTER → 2022-09-07 10:46 | Outpatient (BNVA) | payer OTHER, SELFPAY | PROVIDERS: PCP Nurse Practitioner Family; Visit Provider Internal Medicine | DX: K70.30 Alcoholic cirrhosis of liver without ascites (principal); D64.9 Anemia, unspecified; R19.5 Other fecal abnormalities; Z83.71 Family history of colonic polyps | CPT/HCPCS: 99202 ==

== ENCOUNTER 2022-11-04 22:25 | Emergency (ER) | payer MEDICARE, MEDICAID, SELFPAY ==
--- NOTE | ~2022-11-04 | CT_ITS ---
EXAMINATION: CT HEAD WITHOUT CONTRAST CLINICAL INFORMATION: Altered mental status. COMPARISON: 08/05/2022 TECHNIQUE: Contiguous axial imaging was performed from the skull base to vertex without intravenous contrast. This CT examination was performed using dose optimization techniques as appropriate, variously including the following: * Automated exposure control * Adjustment of mA and/or kV according to patient size (this includes techniques or standardized protocols for targeted exams where dose is matched to indication/reason for exam; i.e. extremities or head) Use of iterative reconstruction technique DLP: 504 mGy-cm. FINDINGS: There is no evidence of acute intracranial hemorrhage or territorial infarction. No abnormal mass effect or midline shift is seen. Manriquez to white matter differentiation is well preserved. No extra-axial fluid collections are identified. No hydrocephalus. Proportional prominence of the ventricles and sulcal spaces is consistent with mild volume loss. Patchy periventricular and deep white matter hypoattenuation is consistent with mild small vessel ischemic changes. Right marquez radiata chronic lacunar infarct. The osseous structures and soft tissues are normal. Partial left mastoid air cell effusion. Minimal opacification of the right ethmoid air cells. CT/CT head/brain wo IV con IMPRESSION: No acute intracranial pathology. Chronic volume loss with small vessel ischemic change.
--- NOTE | ~2022-11-04 | CT_ITS ---
EXAMINATION: CT ABDOMEN AND PELVIS WITH CONTRAST CLINICAL INFORMATION: Abdominal pain COMPARISON: 08/05/2022 TECHNIQUE: Multidetector volumetric images were obtained from the superior aspect of the liver through the pubic symphysis following administration 85 mL of Omnipaque 350 intravenous contrast. Sagittal and coronal reformatted images were obtained on the technologist's workstation. Oral contrast: No This CT examination was performed using dose optimization techniques as appropriate, variously including the following: *Automated exposure control *Adjustment of mA and/or kV according to patient size (this includes techniques or standardized protocols for targeted exams where dose is matched to indication/reason for exam; i.e. extremities or head) *Use of iterative reconstruction technique DLP: 518 mGy-cm FINDINGS: LUNG BASES: Bibasilar atelectasis. LIVER, GALLBLADDER, AND BILIARY TREE: The liver is normal in size, shape, and attenuation. Multiple cysts in the liver. No intrahepatic biliary ductal dilatation. Dilated common bile duct measures 1 cm. No ductal filling defects seen. This is similar to prior. The gallbladder is unremarkable with no evidence of radiopaque gallstones, gallbladder wall thickening, or obvious pericholecystic inflammatory changes. PANCREAS: Unremarkable. SPLEEN: Unremarkable. ADRENAL GLANDS: Unremarkable. KIDNEYS AND URETERS: The kidneys are normal in size, shape, and attenuation. No hydronephrosis, hydroureter, or calculi seen. No perinephric stranding. BLADDER: Partially distended with circumferential wall thickening and mild adjacent inflammation. GASTROINTESTINAL TRACT: The stomach is unremarkable. Normal caliber small bowel. No obstruction. No colonic wall thickening or inflammation. There is prominent diverticulosis, particularly at the sigmoid colon. No diverticulitis. No free air or free fluid. ABDOMINAL WALL: No significant hernia is appreciated. LYMPH NODES: Normal. VASCULAR: Normal caliber aorta with moderate atherosclerotic calcification. PELVIC VISCERA: Uterus not seen. No adnexal mass. OSSEOUS STRUCTURES: No acute or suspicious osseous abnormality. Degenerative changes throughout the spine with scoliotic curvature. CT/CT abdomen pelvis w IV con IMPRESSION: 1. Wall thickening of the bladder with adjacent inflammation, suggestive of cystitis. 2. Prominent colonic diverticulosis without diverticulitis. Fleischner guidelines were followed.
[2022-11-04 22:32] VITALS: BP 158/82; PULSE 87; O2SAT 97; BMI 27.4
[2022-11-04 22:39] VITALS: BP 156/74; PULSE 95; RESP 16; TEMP 36.7; O2SAT 94
--- NOTE | 2022-11-04 23:27 | ED.AMS ---
HPI - Altered Mental Status General Chief Complaint: Altered Mental Status <REGIS [place] - Last Filed: 11/05/22 01:27> Stated Complaint: uti? <REGIS [place] - Last Filed: 11/05/22 01:27> Time Seen by Provider: 11/04/22 23:15 <REGIS [place] - Last Filed: 11/05/22 01:27> Source: patient <REGIS [place] - Last Filed: 11/05/22 01:27> Mode of arrival: ambulatory <REGIS [place] - Last Filed: 11/05/22 01:27> Limitations: altered mental status <REGIS [place] - Last Filed: 11/05/22 01:27> History of Present Illness HPI narrative: This is a 81-year-old female history of alcohol use disorder with alcohol cirrhosis, lower GI bleed, hyperlipidemia, hypertension presenting to the emergency department for evaluation of altered mental status, weakness, combative behavior at [facility]. According to EMS patient has been altered over the past day, answering questions appropriately and combative at her place of residence. Patient states she is fine and she does not know why she is here. Clearly altered. No reported trauma. Not on blood thinners. <REGIS London - Last Filed: 11/05/22 01:27> Related Data Home Medications: Home Medications Medication Instructions Recorded Confirmed acetaminophen 325 mg tablet 650 mg PO Q6H PRN Pain 08/05/22 08/05/22 (Tylenol) bisacodyl 10 mg rectal suppository 10 mg NM DAILY PRN Constipation 08/05/22 08/05/22 folic acid 1 mg tablet 1 mg PO DAILY 08/05/22 08/05/22 lacosamide 200 mg tablet 200 mg PO BID 08/05/22 08/05/22 magnesium hydroxide 400 mg/5 mL 5 ml PO DAILY PRN Constipation 08/05/22 08/05/22 oral suspension (Milk of Magnesia) melatonin 3 mg tablet 3 mg PO BEDTIME PRN Insomnia 08/05/22 08/05/22 midazolam 5 mg/spray (0.1 mL) 5 mg intranasal Q3M 08/05/22 08/05/22 nasal spray multivitamin 1 tab PO DAILY 08/05/22 08/05/22 polyethylene glycol 3350 17 gram 17 g PO DAILY PRN Constipation 08/05/22 08/05/22 oral powder packet (Miralax) pyridoxine (vitamin B6) 50 mg 50 mg PO DAILY 08/05/22 08/05/22 tablet sennosides 8.6 mg tablet 8.6 mg PO BID 08/05/22 08/05/22 thiamine HCl (vitamin B1) 100 mg 100 mg PO DAILY 08/05/22 08/05/22 tablet topiramate 50 mg tablet 50 mg PO BID 08/05/22 08/05/22 Previous Rx's Medication Instructions Recorded walker with wheels, seat & brakes #1 ea 03/25/22 omeprazole 40 mg capsule,delayed 40 mg PO BID #60 caps 08/07/22 release sodium sul 1.479 gram-potas ch See Rx Instructions PO PER PKG DIR 09/07/22 0.188 gram-magnes sul 0.225 gram #1 kit tablet (Sutab) cefuroxime axetil 250 mg tablet 250 mg PO BID 7 days #14 tabs 11/05/22 <REGIS [place] - Last Filed: 11/05/22 01:27> Allergies/Adverse Reactions: Allergies Allergy/AdvReac Type Severity Reaction Status Date / Time atorvastatin Allergy Mild Swelling Verified 09/07/22 11:18 alendronate sodium [Fosamax] Allergy Unknown unknown Verified 09/07/22 11:18 amitriptyline [From Elavil] AdvReac Mild Hallucinati Verified 09/07/22 11:18 ons ciprofloxacin [Cipro] AdvReac Unknown blister Verified 09/07/22 11:18 lisinopril AdvReac Unknown throat Verified 09/07/22 11:18 swelling, cough <REGIS [place] Last Filed: 11/05/22 01:27> Review of Systems Review of Systems: Yes Unobtainable due to mental status <REGIS [place] Last Filed: 11/05/22 01:27> PMFSH Past Medical History Attestation statement: The following information was validated with the patient. <REGIS [place] Last Filed: 11/05/22 01:27> Source: old records reviewed and nursing notes reviewed <REGIS [place] - Last Filed: 11/05/22 01:27> Medical History: Medical History Alcohol use disorder Alcoholic cirrhosis Anxiety Distal radius fracture, right (~2020) Epilepsy Essential hypertension Hyperlipidemia Osteoporosis (~2017) Personal history of nicotine dependence Right patella fracture (~2011) Tubulovillous adenoma of colon (~2001) <REGIS [place] - Last Filed: 11/05/22 01:27> Surgical History: Surgical History History of appendectomy History of bronchoscopy (~2009) History of colonoscopy (~2001) History of cystoscopy (~2001) History of hysterectomy History of right knee surgery (~2011) History of surgery on right wrist (~2020) History of tonsillectomy (~1943) <REGIS [place] - Last Filed: 11/05/22 01:27> Family History Family History: Family History Other Substance use disorder <REGIS [place] - Last Filed: 11/05/22 01:27> Social History Social History: Social History Household Members: Other Housing: Assisted Living Facility Alcohol intake: current Alcohol intake frequency: 0-2 drinks per day Alcohol type: hard liquor Patient Tobacco Use Status: Never used Tobacco Cigarette Packs Per Day: 0.5 e-Cigarette/Vaping Use: Never Used Second Hand Smoke Exposure: No Advance Directives: Yes Advance Directives on File: Yes Advance Directives Date on File: 08/05/22 service: No Current occupational status: retired Current occupation: Right Handed Cognitive needs: No Hearing needs: No Vision needs: No <REGIS [place] - Last Filed: 11/05/22 01:27> Physical Exam ED Vital Signs: Vital Signs - 24 hr 11/04/22 22:39 11/05/22 01:09 Temperature 98.1 F 97.6 F Pulse Rate 95 80 Respiratory Rate 16 14 Blood Pressure 156/74 H 148/69 H Pulse Oximetry 94 96 Oxygen Delivery Method Room Air Room Air BMI result Body Mass Index 27.4 Vital signs stable <REGIS [place] - Last Filed: 11/05/22 01:27> Vital Signs - 24 hr 11/04/22 22:39 11/05/22 01:09 Temperature 98.1 F 97.6 F Pulse Rate 95 80 Respiratory Rate 16 14 Blood Pressure 156/74 H 148/69 H Pulse Oximetry 94 96 Oxygen Delivery Method Room Air Room Air BMI result Body Mass Index 27.4 <Darrin Liu MD - Last Filed: 11/05/22 02:27> Appearance: Alert.?Oriented to person, not place, time or situation.? No acute distress.? Head: Normocephalic, atraumatic, no step-offs or deformities Eyes: Pupils equal, round and reactive to light.? ENT: Pharynx normal.? Neck: Normal inspection.? Neck supple.? CVS: Normal heart rate and rhythm.? Pulses normal.? Respiratory: No respiratory distress.? Breath sounds normal.? Abdomen: Soft and nontender.? Skin: Skin warm and dry.? Normal skin color.? Normal skin turgor.? Extremities: No lower extremity edema.? No calf ttp. Global weakness. Neuro: Oriented to person, not place, time or situation.? No motor deficit.? No sensory deficit. CN 2-12 intact <REGIS [place] - Last Filed: 11/05/22 01:27> Course Reevaluation(s) Reevaluation #1: CBC with no acute findings. Chemistry with no electrolyte abnormalities requiring intervention. Normal transaminases and bilirubin. Lactic acid negative. UA without evidence of infection with large amount of leukocyte esterases and bacteria. Will treat for UTI. No signs of sepsis. CT of the abdomen pelvis and head pending. <REGIS [place] - Last Filed: 11/05/22 01:27> Time: 00:58 <REGIS [place] - Last Filed: 11/05/22 01:27> Reevaluation #2: Ct of abd and pelvis pending. Sign out to Dr. Liu into this abated discharge back to [facility]. <REGIS [place] - Last Filed: 11/05/22 01:27> Time: 01:26 <REGIS [place] - Last Filed: 11/05/22 01:27> Medications Administered Discontinued Medications Generic Name Dose Route Start Last Admin Trade Name Freq PRN Reason Stop Dose Admin Ceftriaxone Sodium 1 gm/ 50 mls @ 100 mls/hr 11/05/22 00:57 11/05/22 01:48 Sodium Chloride IV 11/05/22 01:26 100 mls/hr ONCE ONE Administration Iohexol 85 ml 11/05/22 01:28 11/05/22 01:29 Iohexol 350 Mg/Ml 100 Ml Infus..Btl IV 11/05/22 01:29 85 ml ONCE ONE Administration <REGIS [place] - Last Filed: 11/05/22 01:27> Medications Administered Discontinued Medications Generic Name Dose Route Start Last Admin Trade Name Freq PRN Reason Stop Dose Admin Ceftriaxone Sodium 1 gm/ 50 mls @ 100 mls/hr 11/05/22 00:57 11/05/22 01:48 Sodium Chloride IV 11/05/22 01:26 100 mls/hr ONCE ONE Administration Iohexol 85 ml 11/05/22 01:28 11/05/22 01:29 Iohexol 350 Mg/Ml 100 Ml Infus..Btl IV 11/05/22 01:29 85 ml ONCE ONE Administration <Darrin Liu MD - Last Filed: 11/05/22 02:27> Medical Decision Making Medical Decision Making [facility] Narrative: 2330 81-year-old female [facility] with [facility] They were concerned she might have a UTI. Physical exam with global weakness no focal neuro deficits. Patient alert to person not place time or situation. Concerns for UTI. Will rule out electrolyte abnormalities, dehydration. Unlikely intracranial hemorrhage, stroke or posterior stroke. No signs of hepatic encephalopathy Will obtain basic labs, urine, blood cultures, lactic acid, CT of the abdomen and pelvis, head CT. <REGIS [place] Last Filed: 11/05/22 01:27> Differential Diagnosis Differential Diagnoses: The differential diagnosis associated with the presentation includes <REGIS [place] - Last Filed: 11/05/22 01:27> Concerns for UTI. Will rule out electrolyte abnormalities, dehydration. Unlikely intracranial hemorrhage, stroke or posterior stroke. No signs of hepatic encephalopathy. <REGIS [place] - Last Filed: 11/05/22 01:27> Admission/Observation Consideration of admission/observation: Escalation of care including admission/observation considered <REGIS [place] - Last Filed: 11/05/22 01:27> Likely if patient has a UTI <REGIS [place] - Last Filed: 11/05/22 01:27> Lab Data MDM Lab Attestation statement: I reviewed the patient's lab results. <REGIS [place] - Last Filed: 11/05/22 01:27> Result Diagrams: 11/04/22 23:24 11/04/22 23:25 <REGIS [place] - Last Filed: 11/05/22 01:27> Labs: Lab Results 11/04/22 11/04/22 11/04/22 Range/Units 23:24 23:24 23:25 WBC 7.7 (4.8-10.8) X10*3/uL RBC 4.43 D (4.20-5.50) X10*6/uL Hgb 12.8 D (12.0-16.0) g/dl Hct 38.3 D (37.0-47.0) % MCV 86.5 (80.0-98.0) fL MCH 28.9 (27.0-33.0) pg MCHC 33.4 (31.0-35.0) g/dl RDW 14.3 (11.0-16.0) % Plt Count 292 D (160-400) X10*3/uL MPV 10.5 (9.4-12.3) fL Immature Gran % (Auto) 0.5 H (0.0-0.4) % Neut % (Auto) 67.1 (45-73) % Lymph % (Auto) 23.7 (20-40) % [place] % (Auto) 8.0 (2-11) % Eos % (Auto) 0.4 (0-4) % Baso % (Auto) 0.3 (0-2) % Lymph # (Auto) 1.8 (1.2-4.9) X10*3/uL [place] # (Auto) 0.6 (0.1-1.2) X10*3/uL Eos # (Auto) 0.0 (0.0-0.4) X10*3/uL Baso # (Auto) 0.0 (0.0-0.2) X10*3/uL Abs Immat Gran (auto) 0.04 H (0.00-0.03) X10*3/uL Absolute Neuts (auto) 5.1 (2.0-8.3) x10*3/uL Absolute Nucleated RBC 0.000 (0.0-0.012) X10*3/uL Nucleated RBC % (auto) 0.0 (0.0-0.2) /100WBC Sodium 138 (135-145) mmol/L Potassium 4.0 (3.3-5.1) mmol/L Chloride 105 (96-108) mmol/L Carbon Dioxide 22 (22-29) mmol/L Anion Gap 15 (12-20) BUN 9 (9-16) mg/dL Creatinine 0.69 (0.5-1.4) mg/dL Estim Creat Clear Calc 65.8 Estimated GFR > 60 Random Glucose 103 (60-115) mg/dL Lactic Acid 1.1 (0.5-2.0) mmol/L Calcium 9.0 (8.4-10.2) mg/dL Total Bilirubin 0.5 (0.0-1.0) mg/dL AST 30 (5-31) U/L ALT 25 (0-31) U/L Alkaline Phosphatase 112 (39-117) U/L Total Protein 6.7 (6.5-8.0) g/dL Albumin 3.4 L (3.5-5.0) g/dL Urine Color Urine Appearance Urine pH (5.0-9.0) Ur Specific [place] (1.005-1.025) Urine Protein (Neg-Trace) mg/dL Urine Glucose (UA) (Negative) mg/dL Urine Ketones (Negative) mg/dL Urine Blood (Negative) Urine Nitrite (Negative) Ur Leukocyte Esterase (Negative) Urine RBC (0-2) /HPF Urine WBC (0-5) /HPF Ur Squamous Epith Cells (0-2) /HPF Calcium Oxalate Crystal Urine Bacteria (None Seen) Hyaline Casts (0-2) /LPF 11/05/22 Range/Units 00:42 WBC (4.8-10.8) X10*3/uL RBC (4.20-5.50) X10*6/uL Hgb (12.0-16.0) g/dl Hct (37.0-47.0) % MCV (80.0-98.0) fL MCH (27.0-33.0) pg MCHC (31.0-35.0) g/dl RDW (11.0-16.0) % Plt Count (160-400) X10*3/uL MPV (9.4-12.3) fL Immature Gran % (Auto) (0.0-0.4) % Neut % (Auto) (45-73) % Lymph % (Auto) (20-40) % [place] % (Auto) (2-11) % Eos % (Auto) (0-4) % Baso % (Auto) (0-2) % Lymph # (Auto) (1.2-4.9) X10*3/uL [place] # (Auto) (0.1-1.2) X10*3/uL Eos # (Auto) (0.0-0.4) X10*3/uL Baso # (Auto) (0.0-0.2) X10*3/uL Abs Immat Gran (auto) (0.00-0.03) X10*3/uL Absolute Neuts (auto) (2.0-8.3) x10*3/uL Absolute Nucleated RBC (0.0-0.012) X10*3/uL Nucleated RBC % (auto) (0.0-0.2) /100WBC Sodium (135-145) mmol/L Potassium (3.3-5.1) mmol/L Chloride (96-108) mmol/L Carbon Dioxide (22-29) mmol/L Anion Gap (12-20) BUN (9-16) mg/dL Creatinine (0.5-1.4) mg/dL Estim Creat Clear Calc Estimated GFR Random Glucose (60-115) mg/dL Lactic Acid (0.5-2.0) mmol/L Calcium (8.4-10.2) mg/dL Total Bilirubin (0.0-1.0) mg/dL AST (5-31) U/L ALT (0-31) U/L Alkaline Phosphatase (39-117) U/L Total Protein (6.5-8.0) g/dL Albumin (3.5-5.0) g/dL Urine Color Dark Yellow Urine Appearance Turbid Urine pH 6.0 (5.0-9.0) Ur Specific [place] 1.020 (1.005-1.025) Urine Protein 100 (2+) H (Neg-Trace) mg/dL Urine Glucose (UA) Negative (Negative) mg/dL Urine Ketones Trace (Negative) mg/dL Urine Blood Trace H (Negative) Urine Nitrite Negative (Negative) Ur Leukocyte Esterase Large (3+) H (Negative) Urine RBC >20 H (0-2) /HPF Urine WBC >50 H (0-5) /HPF Ur Squamous Epith Cells 3-5 (0-2) /HPF Calcium Oxalate Crystal Present Urine Bacteria 4+ (None Seen) Hyaline Casts 6-10 (0-2) /LPF <REGIS [place] - Last Filed: 11/05/22 01:27> Lab Results 11/04/22 11/04/22 11/04/22 Range/Units 23:24 23:24 23:25 WBC 7.7 (4.8-10.8) X10*3/uL RBC 4.43 D (4.20-5.50) X10*6/uL Hgb 12.8 D (12.0-16.0) g/dl Hct 38.3 D (37.0-47.0) % MCV 86.5 (80.0-98.0) fL MCH 28.9 (27.0-33.0) pg MCHC 33.4 (31.0-35.0) g/dl RDW 14.3 (11.0-16.0) % Plt Count 292 D (160-400) X10*3/uL MPV 10.5 (9.4-12.3) fL Immature Gran % (Auto) 0.5 H (0.0-0.4) % Neut % (Auto) 67.1 (45-73) % Lymph % (Auto) 23.7 (20-40) % [place] % (Auto) 8.0 (2-11) % Eos % (Auto) 0.4 (0-4) % Baso % (Auto) 0.3 (0-2) % Lymph # (Auto) 1.8 (1.2-4.9) X10*3/uL [place] # (Auto) 0.6 (0.1-1.2) X10*3/uL Eos # (Auto) 0.0 (0.0-0.4) X10*3/uL Baso # (Auto) 0.0 (0.0-0.2) X10*3/uL Abs Immat Gran (auto) 0.04 H (0.00-0.03) X10*3/uL Absolute Neuts (auto) 5.1 (2.0-8.3) x10*3/uL Absolute Nucleated RBC 0.000 (0.0-0.012) X10*3/uL Nucleated RBC % (auto) 0.0 (0.0-0.2) /100WBC Sodium 138 (135-145) mmol/L Potassium 4.0 (3.3-5.1) mmol/L Chloride 105 (96-108) mmol/L Carbon Dioxide 22 (22-29) mmol/L Anion Gap 15 (12-20) BUN 9 (9-16) mg/dL Creatinine 0.69 (0.5-1.4) mg/dL Estim Creat Clear Calc 65.8 Estimated GFR > 60 Random Glucose 103 (60-115) mg/dL Lactic Acid 1.1 (0.5-2.0) mmol/L Calcium 9.0 (8.4-10.2) mg/dL Total Bilirubin 0.5 (0.0-1.0) mg/dL AST 30 (5-31) U/L ALT 25 (0-31) U/L Alkaline Phosphatase 112 (39-117) U/L Total Protein 6.7 (6.5-8.0) g/dL Albumin 3.4 L (3.5-5.0) g/dL Urine Color Urine Appearance Urine pH (5.0-9.0) Ur Specific [place] (1.005-1.025) Urine Protein (Neg-Trace) mg/dL Urine Glucose (UA) (Negative) mg/dL Urine Ketones (Negative) mg/dL Urine Blood (Negative) Urine Nitrite (Negative) Ur Leukocyte Esterase (Negative) Urine RBC (0-2) /HPF Urine WBC (0-5) /HPF Ur Squamous Epith Cells (0-2) /HPF Calcium Oxalate Crystal Urine Bacteria (None Seen) Hyaline Casts (0-2) /LPF 11/05/22 Range/Units 00:42 WBC (4.8-10.8) X10*3/uL RBC (4.20-5.50) X10*6/uL Hgb (12.0-16.0) g/dl Hct (37.0-47.0) % MCV (80.0-98.0) fL MCH (27.0-33.0) pg MCHC (31.0-35.0) g/dl RDW (11.0-16.0) % Plt Count (160-400) X10*3/uL MPV (9.4-12.3) fL Immature Gran % (Auto) (0.0-0.4) % Neut % (Auto) (45-73) % Lymph % (Auto) (20-40) % [place] % (Auto) (2-11) % Eos % (Auto) (0-4) % Baso % (Auto) (0-2) % Lymph # (Auto) (1.2-4.9) X10*3/uL [place] # (Auto) (0.1-1.2) X10*3/uL Eos # (Auto) (0.0-0.4) X10*3/uL Baso # (Auto) (0.0-0.2) X10*3/uL Abs Immat Gran (auto) (0.00-0.03) X10*3/uL Absolute Neuts (auto) (2.0-8.3) x10*3/uL Absolute Nucleated RBC (0.0-0.012) X10*3/uL Nucleated RBC % (auto) (0.0-0.2) /100WBC Sodium (135-145) mmol/L Potassium (3.3-5.1) mmol/L Chloride (96-108) mmol/L Carbon Dioxide (22-29) mmol/L Anion Gap (12-20) BUN (9-16) mg/dL Creatinine (0.5-1.4) mg/dL Estim Creat Clear Calc Estimated GFR Random Glucose (60-115) mg/dL Lactic Acid (0.5-2.0) mmol/L Calcium (8.4-10.2) mg/dL Total Bilirubin (0.0-1.0) mg/dL AST (5-31) U/L ALT (0-31) U/L Alkaline Phosphatase (39-117) U/L Total Protein (6.5-8.0) g/dL Albumin (3.5-5.0) g/dL Urine Color Dark Yellow Urine Appearance Turbid Urine pH 6.0 (5.0-9.0) Ur Specific [place] 1.020 (1.005-1.025) Urine Protein 100 (2+) H (Neg-Trace) mg/dL Urine Glucose (UA) Negative (Negative) mg/dL Urine Ketones Trace (Negative) mg/dL Urine Blood Trace H (Negative) Urine Nitrite Negative (Negative) Ur Leukocyte Esterase Large (3+) H (Negative) Urine RBC >20 H (0-2) /HPF Urine WBC >50 H (0-5) /HPF Ur Squamous Epith Cells 3-5 (0-2) /HPF Calcium Oxalate Crystal Present Urine Bacteria 4+ (None Seen) Hyaline Casts 6-10 (0-2) /LPF <Darrin Liu MD - Last Filed: 11/05/22 02:27> Independent Interpretation I performed an independent interpretation of an: CT Scan <REGIS [place] - Last Filed: 11/05/22 01:27> CT Scan (ct head NAD) <Darrin Liu MD - Last Filed: 11/05/22 02:27> Radiology Impression Discussion of test interpretation with radiology: I have reviewed the radiologist's reading. <REGIS [place] - Last Filed: 11/05/22 01:27> I have reviewed the radiologist's reading. ( CT/CT head/brain wo IV con IMPRESSION: No acute intracranial pathology. Chronic volume loss with small vessel ischemic change. Dictated By:Jose Jimenes MDSigned By:<Electronically signed by Jose Jimenes MD in [place]>11/05/22 0207 DD/ 0142TD/TT: Transc) <Darrin Liu MD - Last Filed: 11/05/22 02:27> Radiologist Impression: CT/CT abdomen pelvis w IV con IMPRESSION: 1.? Wall thickening of the bladder with adjacent inflammation, suggestive of cystitis. 2.? Prominent colonic diverticulosis without diverticulitis. ? Fleischner guidelines were followed. Dictated By: Jose Jimenes MD Signed By: <Electronically signed by Jose Jimenes MD in [place]> 11/05/22 021 DD/ 0142 TD/TT:? Behavior Specialist: YO <Darrin Liu MD - Last Filed: 11/05/22 02:27> Core Measures AMI core measures followed: Yes <REGIS [place] - Last Filed: 11/05/22 01:27> Measure exclusions: not indicated <REGIS [place] - Last Filed: 11/05/22 01:27> Attestation Attending Attestation: I reviewed SALES LEADER/PA/Resident note, assessment and plan. I agree with the documentation, assessment and plan unless otherwise stated. <Darrin Liu MD - Last Filed: 11/05/22 02:27> Critical Care Time Critical Care Time Critical Care Time: No <REGIS [place] - Last Filed: 11/05/22 01:27> Discharge Plan Discharge Clinical Impression: Altered mental status, Acute UTI <REGIS [place] - Last Filed: 11/05/22 01:27> Patient Disposition: Home, Self-Care <REGIS [place] - Last Filed: 11/05/22 01:27> Instructions: Altered Mental Status (ED) <REGIS [place] - Last Filed: 11/05/22 01:27> Additional Instructions: Take your medications as prescribed. If you were prescribed antibiotics today, it is important that you take your medication to their entirety, do not skip any doses, do not finish them early. Follow-up with your primary care provider this week. Return to the emergency department with new or worsening symptoms. Such as fevers, chills, chest pain, shortness of breath, nausea, vomiting, dizziness, headache, vision changes, lethargy In case of emergency call 911 <REGIS [place] - Last Filed: 11/05/22 01:27> Prescriptions: New cefuroxime axetil 250 mg tablet 250 mg PO BID 7 Days Qty: 14 0RF No Action (DME) walker with wheels, seat & brakes See Rx Instructions .Route .MEDSUPPLY Qty: 1 0RF Rx Instructions: daily use multivitamin Tablet 1 tab PO DAILY sennosides 8.6 mg Tablet 8.6 mg PO BID acetaminophen [Tylenol] 325 mg Tablet 650 mg PO Q6H PRN (Reason: Pain) polyethylene glycol 3350 [Miralax] 17 gram Powder In Packet 17 g PO DAILY PRN (Reason: Constipation) thiamine HCl (vitamin B1) 100 mg Tablet 100 mg PO DAILY melatonin 3 mg Tablet 3 mg PO BEDTIME PRN (Reason: Insomnia) magnesium hydroxide [Milk of Magnesia] 400 mg/5 mL Suspension 5 ml PO DAILY PRN (Reason: Constipation) bisacodyl 10 mg Suppository 10 mg NM DAILY PRN (Reason: Constipation) pyridoxine (vitamin B6) 50 mg Tablet 50 mg PO DAILY folic acid 1 mg Tablet 1 mg PO DAILY topiramate 50 mg Tablet 50 mg PO BID lacosamide 200 mg Tablet 200 mg PO BID midazolam 5 mg/spray (0.1 mL) [place],Non-Aerosol 5 mg INTRANASAL Q3M omeprazole 40 mg capsule,delayed release(DR/EC) 40 mg PO BID Qty: 60 0RF Sutab 1.479-0.188- 0.225 gram tablet See Rx Instructions PO PER PKG DIR Qty: 1 0RF Rx Instructions: PO PER PKG DIR <REGIS [place] - Last Filed: 11/05/22 01:27> Referrals: Maximus Silverio MD [Primary Care Provider] - 2 days <REGIS [place] - Last Filed: 11/05/22 01:27> Stand Alone Forms: Work/School Release <REGIS [place] - Last Filed: 11/05/22 01:27>
--- NOTE | 2022-11-04 23:31 | PC.NURSE ---
Patient brought by ems from [facility] for altered mental status. provider assessed patient, IV line place in left forearm, labs drawn per provider orders. Call montoya within reach.
[2022-11-04 23:35] LABS: MANUAL DIFF FLAG NO
[2022-11-04 23:36] LABS: Basophils Percent Auto 0.3 % (0-2); Eosinophils Percent Auto 0.4 % (0-4); Hematocrit 38.3 % (37.0-47.0); Hemoglobin 12.8 g/dl (12.0-16.0); Imm Gran Abs Auto 0.04 X10*3/uL (0.00-0.03); Imm Gran Pct Auto 0.5 % (0.0-0.4); Lymphocytes Absolute Auto 1.8 X10*3/uL (1.2-4.9); Lymphocytes Percent Auto 23.7 % (20-40); Mean Corpuscular HGB Conc 33.4 g/dl (31.0-35.0); Mean Corpuscular Hemoglobin 28.9 pg (27.0-33.0); Mean Corpuscular Volume 86.5 fL (80.0-98.0); Mean Platelet Volume 10.5 fL (9.4-12.3); Monocytes Absolute Auto 0.6 X10*3/uL (0.1-1.2); Neutrophils Absolute Auto 5.1 x10*3/uL (2.0-8.3); Neutrophils Percent Auto 67.1 % (45-73); Platelet Count 292 X10*3/uL (160-400); Red Blood Count 4.43 X10*6/uL (4.20-5.50); Red Cell Distribution Width 14.3 % (11.0-16.0); White Blood Count 7.7 X10*3/uL (4.8-10.8)
[2022-11-04 23:47] LABS: Lactic Acid 1.1 mmol/L (0.5-2.0)
[2022-11-04 23:53] LABS: Alanine Aminotransferase 25 U/L (0-31); Albumin Level 3.4 g/dL (3.5-5.0); Alkaline Phosphatase 112 U/L (39-117); Anion Gap 15 (12-20); Aspartate Amino Transferase 30 U/L (5-31); Bilirubin Total 0.5 mg/dL (0.0-1.0); Blood Urea Nitrogen 9 mg/dL (9-16); Carbon Dioxide 22 mmol/L (22-29); Chloride 105 mmol/L (96-108); Creatinine Clr Calc Pharmacy 65.8; Estimated Glomerular Filt Rate > 60; Glucose Random 103 mg/dL (60-115); Sodium 138 mmol/L (135-145); Total Protein 6.7 g/dL (6.5-8.0)
--- NOTE | 2022-11-05 00:49 | PC.NURSE ---
Urine specimen collected using straight cath technique with 50 mL of cloudy, fouls smelling urine collected during the procedure. Patient tolerated procedure with minimal discomfort, melissa care provided after the procedure. Call montoya placed within patient reach.
[2022-11-05 00:51] LABS: Appearance Urine Turbid; Color Urine Dark Yellow; Glucose Urine UA Negative (Negative); Leukocyte Esterase Urine Large (3+) (Negative); Nitrite Urine Negative (Negative); UMIC TRIGGER UACC YES; Urine Blood Trace (Negative); Urine Ketones Trace mg/dL (Negative); Urine Protein 100 (2+) mg/dL (Neg-Trace)
[2022-11-05 01:00] LABS: Bacteria Urine 4+ (None Seen); Calcium Oxalate Crystals Urine Present; RBC Urine >20 /HPF (0-2); UACC Culture Trigger YES; WBC Urine >50 /HPF (0-5)
[2022-11-05 01:09] VITALS: BP 148/69; PULSE 80; RESP 14; TEMP 36.4; O2SAT 96
[2022-11-05] MEDS: iohexoL 350 MG/ML 100 ML INFUS..BTL 85 ML IV (01:29)
[2022-11-05] MEDS: cefTRIAXone sodium 1 GM in 0.9 % Sodium Chloride 50 ML IV (01:48)
--- NOTE | 2022-11-05 02:42 | PC.NURSE ---
This Rn attempted to call in [id number] report at [facility], no answer to phone calls.
--- NOTE | 2022-11-06 03:25 | PC.NURSE ---
Lab called with a positive blood culture result for pt. Gram + cocci reported and handed off to provider.
== END 2022-11-05 03:57 ==
PROVIDERS: Physician Assistant; Emergency Provider Emergency Medicine; PCP Family Medicine
DX: N39.0 Urinary tract infection, site not specified (principal); R41.82 Altered mental status, unspecified; R10.9 Unspecified abdominal pain; R51.9 Headache, unspecified; Z79.899 Other long term (current) drug therapy
CPT/HCPCS: 36415; 70450; 74177; 80053; 81001; 83605; 85025; 87040; 87077; 87086; 87186; 87205; 96374; 99284; 99285; J0696; Q9967

== ENCOUNTER 2023-05-04 20:19 | Inpatient (IN) | payer MEDICARE, MEDICAID, SELFPAY ==
--- NOTE | ~2023-05-04 | XR_ITS ---
EXAMINATION: XR CHEST CLINICAL INFORMATION: Fever. COMPARISON: 09/05/2020. TECHNIQUE: Frontal view of the chest was obtained. FINDINGS: The lung volumes are low. The cardiomediastinal silhouette is stable. There is mild diffuse increased markings/interstitial coarsening. There is no focal lung consolidation or pleural effusion. The bony structures are osteopenic. Soft tissues are unremarkable. XR/XR chest 1V IMPRESSION: Mild diffuse increased markings/interstitial coarsening possibly chronic. Change related to bronchitis could have this appearance. There is no focal consolidation or pleural effusion
[2023-05-04 20:42] VITALS: BP 92/42; PULSE 110; RESP 16; TEMP 38; O2SAT 95; BMI 20.8
--- NOTE | 2023-05-04 21:07 | ECG_ITS ---
Test Reason : SEPSIS Blood Pressure : / mmHG Vent. Rate : 109 BPM Atrial Rate : 109 BPM P-R Int : 156 ms QRS Dur : 094 ms QT Int : 334 ms P-R-T Axes : 059 -18 051 degrees QTc Int : 449 ms Sinus tachycardia Otherwise normal ECG When compared with ECG of 05-AUG-2022 10:32, No significant change was found Referred By: Generic ED Physician Electronically Signed By:GINO SCHROEDER
[2023-05-04 21:10] LABS: Hematocrit 33.4 % (37.0-47.0); Hemoglobin 11.4 g/dl (12.0-16.0); Mean Corpuscular HGB Conc 34.1 g/dl (31.0-35.0); Mean Platelet Volume 12.6 fL (9.4-12.3); Platelet Count 103 X10*3/uL (160-400); Red Blood Count 3.93 X10*6/uL (4.20-5.50); Red Cell Distribution Width 13.9 % (11.0-16.0); White Blood Count 23.3 X10*3/uL (4.8-10.8)
--- NOTE | 2023-05-04 21:23 | ED_ITS ---
HPI - General Adult General Chief complaint: General Medical Stated complaint: AMS Time Seen by Provider: 05/04/23 21:22 Source: EMS and RN notes reviewed Mode of arrival: EMS Limitations: altered mental status History of Present Illness HPI narrative: patient is 82 years old female with history of hypertension , alcohol use in the past, C2 fracture, alcoholic dementia came from intermediate for increased confusion noted to have fever and tachycardia history of frequent UTIs in the past week Related Data Home Medications Medication Instructions Recorded Confirmed acetaminophen 325 mg tablet 650 mg PO Q6H PRN Pain 08/05/22 05/04/23 (Tylenol) bisacodyl 10 mg rectal suppository 10 mg MS DAILY PRN Constipation 08/05/22 05/04/23 folic acid 1 mg tablet 1 mg PO DAILY 08/05/22 05/04/23 lacosamide 200 mg tablet 200 mg PO BID 08/05/22 05/04/23 magnesium hydroxide 400 mg/5 mL 5 ml PO DAILY PRN Constipation 08/05/22 05/04/23 oral suspension (Milk of Magnesia) melatonin 3 mg tablet 6 mg PO BEDTIME PRN Insomnia 08/05/22 05/04/23 polyethylene glycol 3350 17 gram 17 g PO DAILY PRN Constipation 08/05/22 05/04/23 oral powder packet (Miralax) pyridoxine (vitamin B6) 50 mg 50 mg PO DAILY 08/05/22 05/04/23 tablet sennosides 8.6 mg tablet 8.6 mg PO BID 08/05/22 05/04/23 topiramate 50 mg tablet 75 mg PO BID 08/05/22 05/05/23 Saccharomyces boulardii 250 mg 250 mg PO BID 05/04/23 05/04/23 capsule ondansetron HCl 4 mg tablet 4 mg PO Q8H PRN Nausea 05/04/23 05/04/23 potassium chloride 10 mEq 10 meq PO DAILY 05/04/23 05/04/23 tablet,extended release Previous Rx's Medication Instructions Recorded walker with wheels, seat & brakes #1 ea 03/25/22 omeprazole 40 mg capsule,delayed 40 mg PO BID #60 caps 08/07/22 release Allergies Allergy/AdvReac Type Severity Reaction Status Date / Time atorvastatin Allergy Mild Swelling Verified 09/07/22 11:18 alendronate sodium [Fosamax] Allergy Unknown unknown Verified 09/07/22 11:18 amitriptyline [From Elavil] AdvReac Mild Hallucinati Verified 09/07/22 11:18 ons ciprofloxacin [Cipro] AdvReac Unknown blister Verified 09/07/22 11:18 lisinopril AdvReac Unknown throat Verified 09/07/22 11:18 swelling, cough Review of Systems 2 Review of Systems: Yes Unobtainable due to mental status PMFSH Past Medical History Medical History Alcoholic cirrhosis Epilepsy Personal history of nicotine dependence Tubulovillous adenoma of colon (~2001) Right patella fracture (~2011) Hyperlipidemia Essential hypertension Alcohol use disorder Distal radius fracture, right (~2020) Osteoporosis (~2017) Anxiety Surgical History History of tonsillectomy (~1943) History of appendectomy History of surgery on right wrist (~2020) History of cystoscopy (~2001) History of colonoscopy (~2001) History of bronchoscopy (~2009) History of hysterectomy History of right knee surgery (~2011) Family History Family History Other Substance use disorder Social History Social History Household Members: None Housing: Senior Living Do you presently have visiting nurse or other home services: No Unable to assess alcohol history related to: Unable to respond Alcohol intake: never Patient Tobacco Use Status: Never used Tobacco Cigarette Packs Per Day: 0.5 e-Cigarette/Vaping Use: Never Used Second Hand Smoke Exposure: No Advance Directives Date on File: 08/05/22 service: No Current occupational status: retired Current occupation: Right Handed Cognitive needs: No Hearing needs: No Vision needs: No Physical Exam ED Vital Signs: Vital Signs - 24 hr 05/04/23 20:42 05/05/23 00:13 Temperature 100.4 F 99.2 F Pulse Rate 110 H 96 Respiratory Rate 16 30 H Blood Pressure 92/42 L 108/59 L Pulse Oximetry 95 98 Oxygen Delivery Method Room Air Room Air BMI result Body Mass Index 20.8 Appearance: Alert. and awake. No acute distress. Eyes: PERRLA, No Nystagmus ENT: Pharynx normal. Oral Mucosa dry Neck: Normal inspection. Neck supple. CVS: Normal heart rate and rhythm. Pulses normal. Respiratory: No respiratory distress. Equal air entry bilateral, no wheezing/rales/rhonchi Abdomen: Soft and nontender. Bowel sounds are present, no mass palpable, no CVA tenderness Skin: Skin warm and dry. Normal skin color. Normal skin turgor. Extremities: No lower extremity edema. No calf tenderness Neuro: severely demented moving all 4 extremities Medications Administered Generic Name Dose Route Start Last Admin Trade Name Freq PRN Reason Stop Dose Admin Acetaminophen 650 mg 05/05/23 01:13 05/05/23 02:27 Acetaminophen Supp 650 Mg Supp.Rect MS 650 mg Q6H PRN Administration Pain, Mild (Pain Scale 1-3) Enoxaparin Sodium 30 mg 05/05/23 01:15 05/05/23 02:00 Enoxaparin Sodium 30 Mg/0.3 Ml Syringe SUBCUT 30 mg Q24H LINDA Administration Discontinued Medications Generic Name Dose Route Start Last Admin Trade Name Freq PRN Reason Stop Dose Admin Ceftriaxone Sodium 1 gm/ 50 mls @ 100 mls/hr 05/04/23 21:25 05/04/23 23:29 Sodium Chloride IV 05/04/23 21:54 Infused ONCE ONE Infusion Sodium Chloride 2,000 mls @ 2,000 mls/hr 05/04/23 21:27 05/05/23 02:05 Ns IV 05/04/23 22:26 Infused .Q1H STA Infusion Sodium Chloride 1,000 mls @ 999 mls/hr 05/05/23 02:30 05/05/23 04:56 Ns IV 05/05/23 03:30 Infused .Q1H1M LINDA Infusion Metoprolol Tartrate 5 mg 05/05/23 02:35 05/05/23 02:44 Metoprolol Tartrate 5 Mg/5 Ml Vial IVPUSH 05/05/23 02:36 5 mg ONCE ONE Administration Medical Decision Making Medical Decision Making [facility] Narrative: Patient with UTI with sepsis change in mental status IV fluids were given more than 30 cc/kilograms and IV antibiotics were given focus exam for sepsis was done at 2300 patient has DAISY likely prerenal Differential Diagnosis Differential Diagnoses: The differential diagnosis associated with the presentation includes UTI/sepsis/pneumonia/metabolic encephalopathy/CVA Admission/Observation Consideration of admission/observation: Escalation of care including admission/observation considered Consult Healthcare Provider Management of the patient was discussed with: Hospitalist Lab Data MDM Lab Attestation statement: I reviewed the patient's lab results. 05/04/23 21:04 05/05/23 05:31 Labs: Lab Results 05/04/23 05/04/23 Range/Units 21:04 21:49 WBC 23.3 H (4.8-10.8) X10*3/uL RBC 3.93 L (4.20-5.50) X10*6/uL Hgb 11.4 L (12.0-16.0) g/dl Hct 33.4 L (37.0-47.0) % MCV 85.0 (80.0-98.0) fL MCH 29.0 (27.0-33.0) pg MCHC 34.1 (31.0-35.0) g/dl RDW 13.9 (11.0-16.0) % Plt Count 103 L D (160-400) X10*3/uL MPV 12.6 H (9.4-12.3) fL Absolute Nucleated RBC 0.000 (0.0-0.012) X10*3/uL Nucleated RBC % (auto) 0.0 (0.0-0.2) /100WBC Sodium 137 (135-145) mmol/L Potassium 4.1 (3.3-5.1) mmol/L Chloride 109 H (96-108) mmol/L Carbon Dioxide 17 L (22-29) mmol/L Anion Gap 15 (12-20) BUN 40 H (9-16) mg/dL Creatinine 2.63 H (0.5-1.4) mg/dL Estim Creat Clear Calc 13.9 Estimated GFR 17 Random Glucose 97 (60-115) mg/dL Lactic Acid 3.0 H* (0.5-2.0) mmol/L Calcium 8.5 (8.4-10.2) mg/dL Total Bilirubin 0.8 (0.0-1.0) mg/dL AST 38 H (5-31) U/L ALT 24 (0-31) U/L Alkaline Phosphatase 110 (39-117) U/L Ammonia 23 (13-55) umol/L Total Protein 5.9 L (6.5-8.0) g/dL Albumin 2.9 L (3.5-5.0) g/dL COVID-19 (LINDSEY) Negative (Negative) COVID-19 Clin Com See Note Critical Care Time Critical Care Time Critical Care Time: Yes Total Critical Care Time: 50 Attestation: The patient was critically ill with a high probability of imminent or life threatening deterioration. I spent greater than 55 minutes of discontinuous time evaluating the patient,delivering critical care at the bedside, discussing and evaluating pertinent data with consultants. Critical care time does not include time spent performing separately billable procedures or teaching. Total time spent performing critical care was 50 minutes. Discharge Plan Discharge Clinical Impression: Acute UTI, Sepsis, DAISY (acute kidney injury) Patient Disposition: Admitted As Inpatient Interventions: Admission Worksheet (ED) Last Done: 05/05/23 03:03 Discharge Date/Time: 05/05/23 03:20
[2023-05-04 21:29] LABS: Alanine Aminotransferase 24 U/L (0-31); Albumin Level 2.9 g/dL (3.5-5.0); Alkaline Phosphatase 110 U/L (39-117); Anion Gap 15 (12-20); Aspartate Amino Transferase 38 U/L (5-31); Bilirubin Total 0.8 mg/dL (0.0-1.0); Blood Urea Nitrogen 40 mg/dL (9-16); Calcium 8.5 mg/dL (8.4-10.2); Carbon Dioxide 17 mmol/L (22-29); Chloride 109 mmol/L (96-108); Creatinine Clr Calc Pharmacy 13.9; Estimated Glomerular Filt Rate 17; Glucose Random 97 mg/dL (60-115); Potassium 4.1 mmol/L (3.3-5.1); Sodium 137 mmol/L (135-145); Total Protein 5.9 g/dL (6.5-8.0)
[2023-05-04] MEDS: 0.9 % Sodium Chloride 2,000 ML 2000 ML IV (21:31)
[2023-05-04] MEDS: cefTRIAXone sodium 1 GM in 0.9 % Sodium Chloride 50 ML IV (21:51)
[2023-05-04 22:06] LABS: Ammonia 23 umol/L (13-55)
[2023-05-04 22:13] LABS: COVID-19 Test Negative (Negative); IDNOW Serial# 6674DD1D
--- NOTE | 2023-05-04 22:17 | PHA.MEDREC ---
Pharmacy Consult ? Medication Reconciliation Pharmacy has completed the medication reconciliation. [facility] with [facility] medication list. Elvira Landry, DarielD
[2023-05-04 23:08] LABS: Reflex Lactate? Lactic Acid Added
--- NOTE | 2023-05-04 23:30 | PC.NURSE ---
I assumed care of the pt at 2300. Pt is resting comfortably in bed at this time with family at the bedside. Pt is not very verbal but was able to tell me she does not have any pain or trouble breathing. Pt was tracking appropriately across the room with her eyes. Fluids are going into the left AC at this time.
[2023-05-05] VITALS (11 sets, daily range): BP systolic 107–137; BP diastolic 50–94; PULSE 96–142; RESP 18–30; TEMP 36.1–37.8; O2SAT 95–98
--- NOTE | 2023-05-05 | ECG_ITS ---
Test Reason : TACHY Blood Pressure : / mmHG Vent. Rate : 149 BPM Atrial Rate : 000 BPM P-R Int : 000 ms QRS Dur : 114 ms QT Int : 274 ms P-R-T Axes : 000 -34 090 degrees QTc Int : 431 ms Poor data quality, interpretation may be adversely affected Supraventricular tachycardia Left axis deviation Incomplete left bundle branch block Nonspecific ST abnormality Abnormal ECG When compared with ECG of 04-MAY-2023 21:12, Incomplete left bundle branch block is now Present Inverted T waves have replaced nonspecific T wave abnormality in Lateral leads Heart rate has increased Referred By: Cleve Garcia Electronically Signed By:GINO SCHROEDER
--- NOTE | 2023-05-05 01:15 | PM.IMHP ---
History of Present Illness Date of Service: 05/05/23 Chief Complaint: Altered mentation This is a 82-year-old female with pertinent history of alcohol use disorder, seizure disorder, mood disorder was sent to the emergency department for evaluation of increased confusion. Unable to obtain history from the patient. History obtained from ER provider and chart review. Patient does have a history of frequent UTIs in the past. Patient was found to be febrile and tachycardic in the ER. Unable to obtain review of systems. Review of Systems Review of Systems: Yes Unobtainable due to mental status [facility] Medical History Alcoholic cirrhosis Epilepsy Personal history of nicotine dependence Tubulovillous adenoma of colon (~2001) Right patella fracture (~2011) Hyperlipidemia Essential hypertension Alcohol use disorder Distal radius fracture, right (~2020) Osteoporosis (~2017) Anxiety Family History Other Substance use disorder Surgical History History of tonsillectomy (~1943) History of appendectomy History of surgery on right wrist (~2020) History of cystoscopy (~2001) History of colonoscopy (~2001) History of bronchoscopy (~2009) History of hysterectomy History of right knee surgery (~2011) Social History Household Members: Other Housing: Assisted Living Facility Alcohol intake: never Patient Tobacco Use Status: Never used Tobacco Cigarette Packs Per Day: 0.5 Smoked in Last 30 Days: No e-Cigarette/Vaping Use: Never Used Second Hand Smoke Exposure: No Use of substances other than those prescribed or required for medical reasons: No Advance Directives: Yes Advance Directives on File: Yes Advance Directives Date on File: 08/05/22 service: No Current occupational status: retired Current occupation: Right Handed Cognitive needs: No Hearing needs: No Vision needs: No Meds Allergies Allergy/AdvReac Type Severity Reaction Status Date / Time atorvastatin Allergy Mild Swelling Verified 09/07/22 11:18 alendronate sodium [Fosamax] Allergy Unknown unknown Verified 09/07/22 11:18 amitriptyline [From Elavil] AdvReac Mild Hallucinati Verified 09/07/22 11:18 ons ciprofloxacin [Cipro] AdvReac Unknown blister Verified 09/07/22 11:18 lisinopril AdvReac Unknown throat Verified 09/07/22 11:18 swelling, cough Home Medications Medication Instructions Recorded Confirmed Last Taken Type acetaminophen 325 mg tablet 650 mg PO Q6H PRN Pain 08/05/22 05/04/23 Unknown History (Tylenol) bisacodyl 10 mg rectal suppository 10 mg [place] DAILY PRN Constipation 08/05/22 05/04/23 Unknown History folic acid 1 mg tablet 1 mg PO DAILY 08/05/22 05/04/23 Unknown History lacosamide 200 mg tablet 200 mg PO BID 08/05/22 05/04/23 Unknown History magnesium hydroxide 400 mg/5 mL 5 ml PO DAILY PRN Constipation 08/05/22 05/04/23 Unknown History oral suspension (Milk of Magnesia) melatonin 3 mg tablet 6 mg PO BEDTIME PRN Insomnia 08/05/22 05/04/23 Unknown History polyethylene glycol 3350 17 gram 17 g PO DAILY PRN Constipation 08/05/22 05/04/23 Unknown History oral powder packet (Miralax) pyridoxine (vitamin B6) 50 mg 50 mg PO DAILY 08/05/22 05/04/23 Unknown History tablet sennosides 8.6 mg tablet 8.6 mg PO BID 08/05/22 05/04/23 Unknown History topiramate 50 mg tablet 74 mg PO BID 08/05/22 05/04/23 Unknown History Saccharomyces boulardii 250 mg 250 mg PO BID 05/04/23 05/04/23 Unknown History capsule ondansetron HCl 4 mg tablet 4 mg PO Q8H PRN Nausea 05/04/23 05/04/23 Unknown History potassium chloride 10 mEq 10 meq PO DAILY 05/04/23 05/04/23 Unknown History tablet,extended release Physical Exam Vital Signs and Narrative: Vital Signs: Last Vital Signs Temp 99.2 F 05/05/23 00:13 Pulse 96 05/05/23 00:13 Resp 30 H 05/05/23 00:13 BP 108/59 L 05/05/23 00:13 Pulse Ox 98 05/05/23 00:13 O2 Del Method Room Air 05/05/23 00:13 BMI result Body Mass Index 20.8 Elderly female lying in bed in no distress Neck supple, no JVD Tachycardic with regular rhythm, S1-S2 heard Regular breath sounds bilaterally, no wheezing or crackles appreciated Abdomen soft nontender, no guarding, no rigidity Patient is only eye opening to verbal stimulus, non conversational, not following commands Psych: Normal mood No pedal edema Results Labs 05/04/23 21:04 05/04/23 21:04 Labs: Laboratory Results - last 24 hr 05/04/23 05/04/23 21:04 21:49 MCV 85.0 MCH 29.0 MCHC 34.1 RDW 13.9 Plt Count 103 L D MPV 12.6 H Absolute Nucleated RBC 0.000 Nucleated RBC % (auto) 0.0 Anion Gap 15 Estim Creat Clear Calc 13.9 Estimated GFR 17 Random Glucose 97 Lactic Acid 3.0 H* Calcium 8.5 Total Bilirubin 0.8 AST 38 H ALT 24 Alkaline Phosphatase 110 Ammonia 23 Total Protein 5.9 L Albumin 2.9 L COVID-19 (LINDSEY) Negative COVID-19 Clin Com See Note Imaging Radiologist's Impressions: Impressions Chest X-Ray 05/05/23 00:15 IMPRESSION: Mild diffuse increased markings/interstitial coarsening possibly chronic. Change related to bronchitis could have this appearance. There is no focal consolidation or pleural effusion Assessment and Plan (1) Sepsis due to urinary tract infection: Status: Acute Plan This is a 82-year-old female with pertinent history of alcohol use disorder, seizure disorder, mood disorder was sent to the emergency department for evaluation of increased confusion. #. Sepsis due to UTI. Resuscitated with IV crystalloids. Initiating empiric IV antibiotics. Blood culture and lactic acid obtained. Urine culture pending #. Acute kidney injury, stage II: Monitor creatinine and urine output with crystalloid resuscitation. Avoid nephrotoxins #. Acute lactic acidosis due to sepsis #. Seizure disorder. Continue Vimpat #. Alcohol use disorder. On folic acid Med rec pending DVT prophylaxis: Lovenox Full code Admit as inpatient and will require two night minimum hospital stay for IV antibiotics Time Spent With Patient Time: Total time managing care of this patient today ____ minutes. Quality Stroke Does the patient have a stroke diagnosis?: No VTE Prior VTE?: No VTE Risk Level:: Medical - moderate - high VTE Device Contraindication: Treatment Not Indicated VTE Drug Contraindication: N/A - Med Ordered
[2023-05-05 01:48] LABS: Appearance Urine Turbid; Color Urine Dark Yellow; Glucose Urine UA Negative (Negative); Leukocyte Esterase Urine Large (3+) (Negative); Nitrite Urine Negative (Negative); PH 6.5 (5.0-9.0); UMIC TRIGGER UACC YES; Urine Blood Moderate (2+) (Negative); Urine Ketones Trace mg/dL (Negative); Urine Protein 300 (3+) mg/dL (Neg-Trace)
--- NOTE | 2023-05-05 01:51 | PC.NURSE ---
Per Dr Lopez, pt was straight catheterized. Pt yielded 50mL of cloudy, straw colored urine with a foul odor. Urine collected and sent to lab. Pt tolerated insertion well. Pt was cleaned and given clean linens. Noted a stage one pressure wound on the sacral area. Pt was given a purewick and changed into a clean gilbert. Pt is resting in bed at this time with daughter at the bedside. Pt waiting bed assignment at this time.
[2023-05-05 01:57] LABS: ~Lactic Acid-LAB USE ONLY 2.1 mmol/L (0.5-2.0)
[2023-05-05 01:59] LABS: Bacteria Urine 4+ (None Seen); Hyaline Casts Urine >20 /LPF (0-2); RBC Urine >20 /HPF (0-2); Squamous Epithelial Cell Urine >20 /HPF (0-2); UACC Culture Trigger YES; WBC Clumps Urine Present; WBC Urine >50 /HPF (0-5)
[2023-05-05] MEDS: Enoxaparin Sodium 30 MG/0.3 ML SYRINGE SUBCUT (02:00)
[2023-05-05] MEDS: 0.9 % Sodium Chloride 1,000 ML 999 ML IV (02:25)
[2023-05-05] MEDS: Acetaminophen Supp 650 MG SUPP.RECT PR (02:27)
[2023-05-05] MEDS: Metoprolol Tartrate 5 MG/5 ML VIAL IVPUSH (02:44)
--- NOTE | 2023-05-05 02:49 | PC.NURSE ---
medicated per OCT for elevated heart rate, Notified SABRINA Lott pt on bedside monitor. Some improvement of heart rate. from the 130's after medication heart rate in 111. Will continue to monitor.
[2023-05-05 03:38] LABS: Reflex Lactate? 2 Y
[2023-05-05 04:35] LABS: ~Lactic Acid-LAB USE ONLY 4.6 mmol/L (0.5-2.0)
[2023-05-05 06:47] LABS: Alanine Aminotransferase 21 U/L (0-31); Albumin Level 2.6 g/dL (3.5-5.0); Alkaline Phosphatase 301 U/L (39-117); Anion Gap 16 (12-20); Aspartate Amino Transferase 37 U/L (5-31); Bilirubin Total 0.8 mg/dL (0.0-1.0); Blood Urea Nitrogen 42 mg/dL (9-16); Carbon Dioxide 15 mmol/L (22-29); Chloride 114 mmol/L (96-108); Creatinine Clr Calc Pharmacy 15.2; Estimated Glomerular Filt Rate 19; Glucose Random 64 mg/dL (60-115); Potassium 4.4 mmol/L (3.3-5.1); Sodium 141 mmol/L (135-145); Total Protein 5.6 g/dL (6.5-8.0)
[2023-05-05 08:43] LABS: Hematocrit 34.3 % (37.0-47.0); Hemoglobin 11.1 g/dl (12.0-16.0); Mean Corpuscular HGB Conc 32.4 g/dl (31.0-35.0); Mean Corpuscular Hemoglobin 28.8 pg (27.0-33.0); Mean Corpuscular Volume 89.1 fL (80.0-98.0); Mean Platelet Volume 13.6 fL (9.4-12.3); Red Blood Count 3.85 X10*6/uL (4.20-5.50); Red Cell Distribution Width 14.4 % (11.0-16.0); White Blood Count 13.6 X10*3/uL (4.8-10.8)
[2023-05-05 09:04] LABS: Platelet Count 55 X10*3/uL (160-400)
[2023-05-05] MEDS: Lactated Ringers 1,000 ML 100 ML IVCONT ×2 (09:57→19:27)
--- NOTE | 2023-05-05 11:56 | MHC.SL.SWA ---
Addendum entered and electronically signed by Parris Pulliam MA, CCC-BUSINESS ASST 05/05/23 17:57: BUSINESS ASST returned this evening to re-evaluate pt at request of RN, as pt is now more awake and alert. Pt was given teaspoon pudding, trace ice chips. Despite significant cues, no initiation of posterior lingual movement, absent swallow trigger. Pt w/ open mouth posture, pudding pocketed anteriorly. Pt's mouth was cleared w/ oral swab. Continue to recommend NPO status at this time. Original Note: Speech Pathologist Impression: Risk of aspiration, oropharyngeal dysphagia Risk of Aspiration Due to: Lethargy Reduced Cognition Dysphasia Diet Status: No change- continue NPO Liquid Consistency and Strategies for Safe Swallow: Liquid Intake Recommendation: NPO Solid Food Consistency: Dietary Recommendations: NPO Additional Modifications to Solid Foods: Pt seen by BUSINESS ASST for bedside dysphagia eval. Pt w/ severely delayed swallow, at times absent swallow trigger. Pt on one occasion produced throat clear on swallow, coughing noted after PO trials. Pt not following commands, at times not forming bolus, no posterior lingual transport. Recommend continue NPO d/t decreased mentation, lethargic state, absent swallow, and overt s/s of aspiration noted. Advised team (RN, RD, PA) via [place] Message. Discussed w/ RN on floor. BUSINESS ASST available over weekend by call-in via Switchboard should re-eval be indicated. BUSINESS ASST will continue to follow during hospitalization. Recommend precautions to decrease risk of microaspiration- ensure head of bed is elevated at least 30 degrees, as well as frequent oral care. Oral Medication Intake: NPO Please contact the pharmacy regarding appropriate crushable or liquid drug formulations that are available whenever modified delivery is recommended. Supervision While Eating and Drinking for Safe Swallow: PO with BUSINESS ASST Recommendation for Speech: Inpatient Speech Therapy Pt comes from [facility] where she was on a pureed diet prior to hospitalization. Recommend continue ST for dysphagia after d/c. Care Companion Clinican/Clinical Fellow: Yes: Ghazala Moore Supervisory Statement: I have reviewed and agree with the student/clinical fellow's documentation: Yes Speech Language Pathologist: Parris Pulliam M.A., CCC-BUSINESS ASST
[2023-05-05] MEDS: cefTRIAXone sodium 2 GM in 0.9 % Sodium Chloride 50 ML IV (12:43)
--- NOTE | 2023-05-05 13:17 | HO.PM.IMPN ---
Subjective Subjective Date of Service: 05/05/23 Interval History: seen and examined this morning follow up for sepsis, UTI, encephalopathy blood cultures growing GNR awake, alert, confused; unable to provide much history Neurologic Neurologic: Reports confusion Psychiatric Psychiatric: Reports confusion Physical Exam Vital Signs: Vital Signs: Last Vital Signs Temp 97.0 F 05/05/23 11:49 Pulse 104 H 05/05/23 11:49 Resp 18 05/05/23 11:49 BP 112/62 05/05/23 11:49 Pulse Ox 95 05/05/23 11:49 O2 Del Method Room Air 05/05/23 11:49 BMI result Body Mass Index 20.8 Const: General: alert, awake and confusion Nutritional Appearance: thin Orientation/consciousness: confusion Resp: Effort & Inspection: normal respiratory effort, no respiratory distress and no use of accessory muscles Cardio: Rate: regular rate GI: Inspection: No distended Palpation (GI): Soft to palpation and nontender Neuro: Other: grossly nonfocal, following commands General: moves all extremities and confusion Extrem: General: Yes no pedal edema Objective Data Active Medications Acetaminophen (Acetaminophen 325 Mg Tablet) 650 mg PO Q6H PRN PRN Reason: Pain, Mild (Pain Scale 1-3) Acetaminophen (Acetaminophen Supp 650 Mg Supp.Rect) 650 mg GA Q6H PRN PRN Reason: Pain, Mild (Pain Scale 1-3) Last Admin: 05/05/23 02:27 Dose: 650 mg Documented By: KIM Folic Acid (Folic Acid 1 Mg Tablet) 1 mg PO DAILY [facility] Last Admin: 05/05/23 10:50 Dose: Not Given Documented By: CARY Non-Admin Reason: waited for swallow eval, NPO Lactated Ringer's (Lr) 1,000 mls @ 100 mls/hr IVCONT .Q10H [facility] Last Admin: 05/05/23 09:57 Dose: 100 mls/hr Documented By: CARY Ceftriaxone Sodium 2 gm/ (Sodium Chloride) 50 mls @ 100 mls/hr IV Q24H [facility] Last Admin: 05/05/23 12:43 Dose: 100 mls/hr Documented By: CARY Lacosamide (Lacosamide Oral Solution 100 Mg/10 Ml Solution) 150 mg PO BID [facility] Last Admin: 05/05/23 10:50 Dose: Not Given Documented By: CARY Non-Admin Reason: waited for swallow eval, NPO Melatonin (Melatonin 3 Mg Tablet) 6 mg PO BEDTIME PRN PRN Reason: Insomnia Omeprazole (Omeprazole 40 Mg Capsule.Dr) 40 mg PO BID [facility] Last Admin: 05/05/23 10:51 Dose: Not Given Documented By: CARY Non-Admin Reason: waited for swallow eval, NPO Polyethylene Glycol (Polyethylene Glycol 3350 17 Gm Powd.Pack) 17 gm PO DAILY PRN PRN Reason: Constipation Senna (Sennosides 8.6 Mg Tablet) 8.6 mg PO BID [facility] Last Admin: 05/05/23 10:51 Dose: Not Given Documented By: CARY Non-Admin Reason: waited for swallow eval, NPO Sodium Chloride (0.9 % Sodium Chloride Flush 3 Ml Syringe) 3 ml IVFLUSH QSHIFT [facility] Last Admin: 05/05/23 09:57 Dose: Not Given Documented By: CARY Non-Admin Reason: IV Running Topiramate (Topiramate 25 Mg Tablet) 37.5 mg PO BID [facility] Last Admin: 05/05/23 10:52 Dose: Not Given Documented By: CARY Non-Jolene Reason: waited for swallow eval, NPO Labs 05/05/23 07:30 05/05/23 05:31 Labs: Laboratory Results - last 24 hr 05/04/23 05/04/23 05/05/23 21:04 21:49 01:22 MCV 85.0 MCH 29.0 MCHC 34.1 RDW 13.9 Plt Count 103 L D MPV 12.6 H Absolute Nucleated RBC 0.000 Nucleated RBC % (auto) 0.0 Anion Gap 15 Estim Creat Clear Calc 13.9 Estimated GFR 17 Random Glucose 97 Lactic Acid 3.0 H* Lactic Acid F/U @ 2Hr 2.1 H* Lactic Acid F/U @ 4Hr Calcium 8.5 Total Bilirubin 0.8 AST 38 H ALT 24 Alkaline Phosphatase 110 Ammonia 23 Total Protein 5.9 L Albumin 2.9 L Urine Color Urine Appearance Urine pH Ur Specific Nettie Urine Protein Urine Glucose (UA) Urine Ketones Urine Blood Urine Nitrite Ur Leukocyte Esterase Urine RBC Urine WBC Urine WBC Clumps Ur Squamous Epith Cells Urine Bacteria Hyaline Casts COVID-19 ([facility]) Negative COVID-19 Clin Com See Note 05/05/23 05/05/23 05/05/23 01:32 03:47 05:31 MCV MCH MCHC RDW Plt Count MPV Absolute Nucleated RBC Nucleated RBC % (auto) Anion Gap 16 Estim Creat Clear Calc 15.2 Estimated GFR 19 Random Glucose 64 Lactic Acid Lactic Acid F/U @ 2Hr Lactic Acid F/U @ 4Hr 4.6 H* Calcium 8.0 L Total Bilirubin 0.8 AST 37 H ALT 21 Alkaline Phosphatase 301 H Ammonia Total Protein 5.6 L Albumin 2.6 L Urine Color Dark Yellow Urine Appearance Turbid Urine pH 6.5 Ur Specific Nettie 1.020 Urine Protein 300 (3+) H Urine Glucose (UA) Negative Urine Ketones Trace Urine Blood Moderate (2+) H Urine Nitrite Negative Ur Leukocyte Esterase Large (3+) H Urine RBC >20 H Urine WBC >50 H Urine WBC Clumps Present Ur Squamous Epith Cells >20 Urine Bacteria 4+ Hyaline Casts >20 COVID-19 ([facility]) COVID-19 Clin Com 05/05/23 07:30 MCV 89.1 MCH 28.8 MCHC 32.4 RDW 14.4 Plt Count 55 L D MPV 13.6 H Absolute Nucleated RBC 0.000 Nucleated RBC % (auto) 0.0 Anion Gap Estim Creat Clear Calc Estimated GFR Random Glucose Lactic Acid Lactic Acid F/U @ 2Hr Lactic Acid F/U @ 4Hr Calcium Total Bilirubin AST ALT Alkaline Phosphatase Ammonia Total Protein Albumin Urine Color Urine Appearance Urine pH Ur Specific Nettie Urine Protein Urine Glucose (UA) Urine Ketones Urine Blood Urine Nitrite Ur Leukocyte Esterase Urine RBC Urine WBC Urine WBC Clumps Ur Squamous Epith Cells Urine Bacteria Hyaline Casts COVID-19 ([facility]) COVID-19 Clin Com Microbiology Microbiology Results: Microbiology 05/04/23 21:04 Blood Culture - Preliminary Blood - Venous Prelim: GNR Gram Stain only 05/04/23 21:49 Blood Culture - Preliminary Blood - Venous Prelim: GNR Gram Stain only Assessment and Plan (1) DAISY (acute kidney injury): Status: Acute (2) Sepsis: Status: Acute (3) Sepsis due to urinary tract infection: Status: Acute Plan This is a 82-year-old female with pertinent history of alcohol use disorder, seizure disorder, mood disorder was sent to the emergency department from [facility] for evaluation of increased confusion. Sepsis due to UTI/ bacteremia Met sepsis criteria with tachycardia, tachypnea, leukocytosis urine culture pending blood cultures growing GNR and GPC will continue IV ceftriaxone, will give empiric dose of vaco to cover GPC follow urine culture and final blood culture results SVT had episode of SVT overnight received IV lopressor monitor on tele Acute kidney injury improved slightly continue IVF follow renal function avoid nephrotoxins Acute lactic acidosis due to sepsis thrombocytopenia may be r/t sepsis d/c chemoprophylaxis for now follow CBC Seizure disorder seizure precautions Continue Vimpat, topomax - renal dosing h/o Alcohol use disorder continue folic acid DVT prophylaxis:will d/c lovenox due to thrombocytopenia, mechanical devices DNR/DNI Admit as inpatient and will require two night minimum hospital stay for IV antibiotics Time Spent With Patient Time: Total time managing care of this patient today ____ minutes. Quality Stroke Does the patient have a stroke diagnosis?: No VTE Prior VTE?: No VTE Risk Level:: Medical - moderate - high VTE Device Contraindication: Treatment Not Indicated VTE Drug Contraindication: N/A - Med Ordered
--- NOTE | 2023-05-05 13:29 | MHC.CM.PN ---
pt from [facility] where she will return when dcd
[2023-05-05] MEDS: vancomycin HCL 1,000 MG in 0.9 % Sodium Chloride 250 ML 270 MG IV (14:12)
[2023-05-05] MEDS: Topiramate 25 MG TABLET 37.5 MG PO (20:51)
[2023-05-06 03:00] VITALS: BP 134/66; PULSE 99; RESP 18; TEMP 36.4; O2SAT 96
[2023-05-06] MEDS: Lactated Ringers 1,000 ML 100 ML IVCONT (03:31)
[2023-05-06 07:00] VITALS: BP 134/78; PULSE 96; RESP 16; TEMP 36.4; O2SAT 98
[2023-05-06] MEDS: 0.9 % Sodium Chloride Flush 3 ML SYRINGE IVFLUSH ×2 (07:50→15:16)
[2023-05-06 08:46] LABS: Hemoglobin 10.7 g/dl (12.0-16.0)
[2023-05-06 08:48] LABS: Hematocrit 32.6 % (37.0-47.0); Mean Corpuscular HGB Conc 32.8 g/dl (31.0-35.0); Mean Corpuscular Hemoglobin 29.2 pg (27.0-33.0); Mean Corpuscular Volume 88.8 fL (80.0-98.0); Mean Platelet Volume 13.9 fL (9.4-12.3); Red Blood Count 3.67 X10*6/uL (4.20-5.50); Red Cell Distribution Width 14.6 % (11.0-16.0)
[2023-05-06 08:50] LABS: Platelet Count 41 X10*3/uL (160-400)
[2023-05-06 09:05] LABS: Anion Gap 17 (12-20); Blood Urea Nitrogen 49 mg/dL (9-16); Calcium 8.4 mg/dL (8.4-10.2); Carbon Dioxide 12 mmol/L (22-29); Chloride 117 mmol/L (96-108); Creatinine Clr Calc Pharmacy 18.3; Estimated Glomerular Filt Rate 24; Glucose Random 60 mg/dL (60-115); Sodium 142 mmol/L (135-145)
[2023-05-06] MEDS: cefTRIAXone sodium 2 GM in 0.9 % Sodium Chloride 50 ML IV (10:49)
[2023-05-06 10:57] VITALS: BP 136/77; PULSE 98; RESP 16; TEMP 36.7; O2SAT 97
[2023-05-06] MEDS: Dextrose 5 % and Lactated Ring 1,000 ML 100 ML IVCONT (11:07)
[2023-05-06 12:34] LABS: VBG Base Excess -12.7 mmol/L; VBG HCO3 12 mmol/L (22-26); VBG pCO2 25 mmHg; VBG pH 7.28 (7.32-7.43); VBG pO2 46 mmHg
[2023-05-06 12:34] LABS: Venous Blood Gas Refer to POC result
[2023-05-06 15:00] VITALS: BP 149/71; PULSE 92; RESP 18; TEMP 36.3; O2SAT 96
--- NOTE | 2023-05-06 15:05 | P.PNIM_ITS ---
Subjective Subjective Date of Service: 05/06/23 Interval History: seen and examined this morning follow up for encephalopathy, DAISY, bacteremia more awake, alert today, responding to some questions, following commands denying any specific complaints Review of Systems Review of Systems: Yes all other systems are reviewed and are negative Cardiovascular Cardiovascular: Denies chest pain Gastrointestinal Gastrointestinal: Denies abdominal pain Neurologic Neurologic: Reports confusion Psychiatric Psychiatric: Reports confusion Physical Exam 2 Vital Signs: Vital Signs: Last Vital Signs Temp 98.1 F 05/06/23 10:57 Pulse 98 05/06/23 10:57 Resp 16 05/06/23 10:57 BP 136/77 05/06/23 10:57 Pulse Ox 97 05/06/23 10:57 O2 Del Method Room Air 05/06/23 10:57 BMI result Body Mass Index 20.8 Const: General: no acute distress, alert, awake and confusion Nutritional Appearance: thin Orientation/consciousness: confusion Resp: Effort & Inspection: normal respiratory effort, no respiratory distress and no use of accessory muscles Cardio: Rate: regular rate GI: Inspection: No distended Palpation (GI): Soft to palpation and nontender Neuro: Other: grossly nonfocal, following commands General: moves all extremities and confusion Extrem: General: Yes no pedal edema Objective Data Active Medications Acetaminophen (Acetaminophen Supp 650 Mg Supp.Rect) 650 mg [place] Q6H PRN PRN Reason: Pain, Mild (Pain Scale 1-3) Last Admin: 05/05/23 02:27 Dose: 650 mg Documented By: KIM Folic Acid (Folic Acid 1 Mg Tablet) 1 mg PO DAILY [facility] Last Admin: 05/06/23 08:53 Dose: Not Given Documented By: CHLOÉ Non-Admin Reason: NPO Ceftriaxone Sodium 2 gm/ (Sodium Chloride) 50 mls @ 100 mls/hr IV Q24H [facility] Last Infusion: 05/06/23 11:19 Dose: Infused Documented By: CHLOÉ Vancomycin HCl 500 mg/ Sodium (Chloride) 110 mls @ 110 mls/hr IV Q24H [facility] Sodium Bicarbonate 50 meq/ (Dextrose) 1,000 mls @ 100 mls/hr IV .Q10H [facility] Stop: 05/06/23 23:59 Levetiracetam (Keppra) 500 mg in 100 mls @ 400 mls/hr IV Q12H [facility] Lacosamide (Lacosamide Oral Solution 100 Mg/10 Ml Solution) 150 mg PO BID [facility] Last Admin: 05/06/23 10:59 Dose: Not Given Documented By: CHLOÉ Non-Admin Reason: Patient Refused Melatonin (Melatonin 3 Mg Tablet) 6 mg PO BEDTIME PRN PRN Reason: Insomnia Omeprazole (Omeprazole 40 Mg Capsule.Dr) 40 mg PO BID [facility] Last Admin: 05/06/23 08:53 Dose: Not Given Documented By: CHLOÉ Non-Admin Reason: NPO Pharmacy Consult (Consult Rx Vancomycin Dosing) 1 each MISCELLANE DAILY PRN PRN Reason: Consult order Polyethylene Glycol (Polyethylene Glycol 3350 17 Gm Powd.Pack) 17 gm PO DAILY PRN PRN Reason: Constipation Senna (Sennosides 8.6 Mg Tablet) 8.6 mg PO BID [facility] Last Admin: 05/06/23 08:53 Dose: Not Given Documented By: CHLOÉ Non-Admin Reason: NPO Sodium Chloride (0.9 % Sodium Chloride Flush 3 Ml Syringe) 3 ml IVFLUSH QSHIFT [facility] Last Admin: 05/06/23 07:50 Dose: 3 ml Documented By: CHLOÉ Topiramate (Topiramate 25 Mg Tablet) 37.5 mg PO BID [facility] Last Admin: 05/06/23 08:53 Dose: Not Given Documented By: CHLOÉ Non-Jolene Reason: NPO Labs 05/06/23 08:30 05/06/23 08:30 Labs: Laboratory Results - last 24 hr 05/06/23 05/06/23 05/06/23 08:30 11:21 12:25 MCV 88.8 MCH 29.2 MCHC 32.8 RDW 14.6 Plt Count 41 L D MPV 13.9 H Absolute Nucleated RBC 0.000 Nucleated RBC % (auto) 0.0 VBG pH 7.28 L VBG pCO2 25 VBG pO2 46 VBG HCO3 12 L VBG O2 Saturation 70.0 VBG Base Excess -12.7 Anion Gap 17 Estim Creat Clear Calc 18.3 Estimated GFR 24 Random Glucose 60 Calcium 8.4 Hold Green Top See Note Blood Type Antibody Screen 05/06/23 13:11 MCV MCH MCHC RDW Plt Count MPV Absolute Nucleated RBC Nucleated RBC % (auto) VBG pH VBG pCO2 VBG pO2 VBG HCO3 VBG O2 Saturation VBG Base Excess Anion Gap Estim Creat Clear Calc Estimated GFR Random Glucose Calcium Hold Green Top Blood Type O Positive Antibody Screen NEGATIVE Microbiology Microbiology Results: Microbiology 05/05/23 Unknown Urine Culture - Preliminary Urine clean catch - Urine de [place] top Culture in progress. 05/04/23 21:49 Blood Culture - Preliminary Blood - Venous Gram negative nathan Enterococcus/Streptococcus sp 05/04/23 21:04 Blood Culture - Preliminary Blood - Venous Gram negative nathan Assessment and Plan (1) DAISY (acute kidney injury): Status: Acute (2) Sepsis: Status: Acute (3) Acute UTI: Status: Acute (4) Bacteremia: Status: Acute Plan This is a 82-year-old female with pertinent history of alcohol use disorder, seizure disorder, mood disorder was sent to the emergency department from [facility] for evaluation of increased confusion. Sepsis due to UTI/ bacteremia Met sepsis criteria with tachycardia, tachypnea, leukocytosis, all improving urine culture pending blood cultures growing GNR and enterococcus/streptococcus sp will continue IV ceftriaxone, and continue IV vancomycin follow urine culture and final blood culture results ID consult pending Acute kidney injury/NAGMA renal function improved from 2.63 to 1.99, but still above baseline continue IVF follow renal function avoid nephrotoxins bicarb trending down, ph 7.28, will give add bicarb to fluid x 1L nephrology consult pending metabolic encephalopathy r/t to above pt has dementia, baseline confused and bedbound per daughter, but not back to baseline [employer] resident at [facility] thrombocytopenia may be r/t sepsis d/c chemoprophylaxis for now will check PT/PTT. fibrinogen, peripheral smear, HIT panel follow CBC dysphagia seen by speech rec NPO continue IVF repeat speech eval when improved mentation Seizure disorder seizure precautions unable to take baseline vimpat, topomax as pt npo will start IV keppra for now chronic normocytic anemia h/h at baseline no indication for transfusion at this time SVT had episode of SVT overnight 05/05 received IV lopressor no further episodes thus far Acute lactic acidosis due to sepsis continue IVF h/o Alcohol use disorder continue folic acid DVT prophylaxis: lovenox d/c due to thrombocytopenia, mechanical devices DNR/DNI attending - dr. comer patient will require ongoing hospital stay for IV antibiotics, ivf, specialist evaluation, close monitoring Time Spent With Patient Time: Total time managing care of this patient today ____ minutes. Quality Stroke Does the patient have a stroke diagnosis?: No VTE Prior VTE?: No VTE Risk Level:: Medical - moderate - high VTE Device Contraindication: Treatment Not Indicated VTE Drug Contraindication: N/A - Med Ordered
[2023-05-06] MEDS: Sodium Bicarbonate 8.4% 50 MEQ in Dextrose 5 % 950 ML 100 MEQ IV (15:08)
[2023-05-06] MEDS: vancomycin HCL 500 MG in 0.9 % Sodium Chloride 100 ML 110 MG IV (15:12)
--- NOTE | 2023-05-06 15:12 | MHC.CM.PN ---
CM MET WITH PTS DAUGHTER/HCP, [place] AT HER REQUEST SHE WAS REQUESTING TO ALTER THE PTS HCP TO ADD HER SISTERS NAME SHE WAS INFORMED ONLY THE PT CAN CHANGE HER HCP AND SHE IS UNABLE TO DO SO AT THIS TIME DUE TO MENTATION [place] ASKS THAT HER SISTER, GRETCHEN WASSERMAN BE PROVIDED UPDATES AND GIVES PERMISSION TO SHARE INFORMATION WTIH HER. GRETCHEN WASSERMAN IS ALLOWED TO RECEIVE UPDATES ON PTS CONDITION/PLAN OF CARE.
[2023-05-06 16:01] LABS: Baso%MD 0.3 %; Mean Corpuscular Hemoglobin 28.9 pg (27.0-33.0); Mean Corpuscular Volume 88.2 fL (80.0-98.0); Red Cell Distribution Width 14.6 % (11.0-16.0)
[2023-05-06 16:03] LABS: Hematocrit 33.5 % (37.0-47.0); Lymph%MD 2.5 %; Mean Corpuscular HGB Conc 32.8 g/dl (31.0-35.0); Mean Platelet Volume 13.5 fL (9.4-12.3); Mono%MD 3.3 %; Neut%MD 92.9 %; White Blood Count 17.7 X10*3/uL (4.8-10.8)
[2023-05-06 16:06] LABS: PLT ABN DIST 1; Platelet Count 41 X10*3/uL (160-400)
[2023-05-06 16:09] LABS: INTERNATIONAL NORM RATIO 1.1 (0.9-1.1)
[2023-05-06 16:11] LABS: Partial Thromboplastin Time 24.7 SEC (26.0-36.4)
[2023-05-06] MEDS: levETIRAcetam in NaCl (iso-os) 500 MG/100 ML PIGGYBACK 400 MG IV (16:13)
[2023-05-06 16:57] LABS: Potassium Urine Random 71.8 mmol/L
--- NOTE | 2023-05-06 17:14 | PC.NURSE ---
Pt refused medications, moves her head back and forth side to side and this nurse unable to administer meds. Daughters in room and attempted to assist but pt clamped lips shut. Saniya Kimbrough aware, meds adjusted. Pt has purewick with dark harpreet urine. Bladder scanned for 107ml.
[2023-05-06 17:45] LABS: Lactic Acid 1.2 mmol/L (0.5-2.0)
[2023-05-06 17:49] LABS: Beta-Hydroxybutyrate 3.41 mmol/L (0.02-0.27); Lactate Dehydrogenase 151 U/L (122-220)
[2023-05-06 17:53] LABS: Band Neutrophils Percent 11 % (3-5); Lymphocytes Absolute Manual 0.2 X10*3/uL (1.2-4.9); Lymphocytes Percent Manual 1 % (20-40); Monocytes Absolute Manual 0.7 X10*3/uL (0.1-1.2); Monocytes Percent Manual 4 % (2-11); Neutrophils Absolute Manual 16.8 X10*3/uL (2.0-8.3); Neutrophils Percent Manual 84 % (45-73); RBC Morphology NOTED
[2023-05-06 17:54] LABS: Burr Cells 3+ (>5) /OIF
[2023-05-06 17:55] LABS: Platelet Estimate DECREASED (NORMAL); Platelet Morphology Comment NORMAL
[2023-05-06] MEDS: Sodium Bicarbonate 8.4% 150 MEQ in Dextrose 5 % 850 ML 125 MEQ IV (18:00)
[2023-05-06 18:46] LABS: Fibrinogen > 700 MG/DL (259-690)
[2023-05-06 20:00] VITALS: BP 145/70; PULSE 98; RESP 18; TEMP 36.5; O2SAT 96
[2023-05-06 23:43] VITALS: BP 123/71; PULSE 110; RESP 18; TEMP 37.1; O2SAT 92
[2023-05-07] VITALS (8 sets, daily range): BP systolic 109–137; BP diastolic 67–84; PULSE 101–117; RESP 16–22; TEMP 35.7–37.3; O2SAT 87–94
[2023-05-07] MEDS: Sodium Bicarbonate 8.4% 150 MEQ in Dextrose 5 % 850 ML 125 MEQ IV ×2 (01:01→08:51)
[2023-05-07] MEDS: levETIRAcetam in NaCl (iso-os) 500 MG/100 ML PIGGYBACK 400 MG IV ×2 (02:54→15:33)
[2023-05-07 07:58] LABS: Red Blood Count 3.31 X10*6/uL (4.20-5.50)
[2023-05-07 07:59] LABS: Hematocrit 27.8 % (37.0-47.0); Hemoglobin 9.7 g/dl (12.0-16.0); Mean Corpuscular HGB Conc 34.9 g/dl (31.0-35.0); Mean Corpuscular Hemoglobin 29.3 pg (27.0-33.0); Red Cell Distribution Width 14.2 % (11.0-16.0); White Blood Count 11.5 X10*3/uL (4.8-10.8)
[2023-05-07 08:04] LABS: PLT ABN DIST 1
[2023-05-07 08:25] LABS: Platelet Count 20 X10*3/uL (160-400)
[2023-05-07 08:32] LABS: Albumin Level 2.2 g/dL (3.5-5.0); Anion Gap 14 (12-20); Blood Urea Nitrogen 44 mg/dL (9-16); Carbon Dioxide 20 mmol/L (22-29); Chloride 114 mmol/L (96-108); Creatinine Clr Calc Pharmacy 24.7; Estimated Glomerular Filt Rate 34; Glucose Random 145 mg/dL (60-115); Magnesium 1.8 mg/dL (1.6-2.6); Phosphorus 1.6 mg/dL (2.7-4.5); Potassium 2.9 mmol/L (3.3-5.1); Sodium 145 mmol/L (135-145)
[2023-05-07 09:19] LABS: Band Neutrophils Percent 31 % (3-5); Lymphocytes Absolute Manual 0.2 X10*3/uL (1.2-4.9); Lymphocytes Percent Manual 2 % (20-40); Metamyelocytes Absolute 0.3 X10*3/uL; Metamyelocytes Percent 3 %; Monocytes Absolute Manual 0.2 X10*3/uL (0.1-1.2); Monocytes Percent Manual 2 % (2-11); Neutrophils Absolute Manual 10.7 X10*3/uL (2.0-8.3); Neutrophils Percent Manual 62 % (45-73)
[2023-05-07 09:20] LABS: Burr Cells 3+ (>5) /OIF; RBC Morphology NOTED; Schistocytes 1+ (0-2) /OIF; Toxic Vacuolation PRESENT
[2023-05-07 09:21] LABS: Platelet Estimate DECREASED (NORMAL); Platelet Morphology Comment NORMAL
--- NOTE | 2023-05-07 09:41 | MHC.CLN ---
RE: CONSULT PPN TO START DISCUSSED WITH PHARMACY RECOMMEND PPN AT 45ML/HR TO PROVIDE 551KCALS, 108G DEXTROSE, 46G PROTEIN HOLD LIPIDS REPLETE LYTES NEEDED FULL CLINICAL NUTRITION ASSESSMENT TO FOLLOW
--- NOTE | 2023-05-07 10:36 | P.DS_ITS ---
DS: Providers Provider Date of Service: 05/07/23 Date of admission: 05/05/23 01:14 Date of discharge: 05/07/23 Primary care physician: Maximus Silverio MD Consults: 05/06/23 10:51 Consult to Infectious Diseases Routine Consulting Provider: [facility] [place] Infectious Disease Reason for consultation: bacteremia Has provider been notified: No 05/06/23 11:02 Consult to Nephrology Routine Consulting Provider: Indra Tucker Reason for consultation: daisy Has provider been notified: No 05/06/23 14:55 Consult to Neurology Routine Consulting Provider: [facility] Reason for consultation: h/o seizure, npo unable to take baseline meds ?recs Has provider been notified: No 05/07/23 08:24 Consult to Hematology / Oncology Routine Consulting Provider: Renny Epstein Reason for consultation: thrombocytopenia Has provider been notified: No Attending physician on discharge: Joel Kincaid Discharging clinician: Saniya Kimbrough DS: Diagnosis Discharge Diagnosis (1) DAISY (acute kidney injury): Status: Acute (2) Sepsis: Status: Acute (3) Acute UTI: Status: Acute (4) Bacteremia: Status: Acute (5) Thrombocytopenia: Status: Acute DS: Summary Hospital Course Hospital Course: From H&p on day of admission This is a 82-year-old female with pertinent history of alcohol use disorder, seizure disorder, mood disorder was sent to the emergency department for evaluation of increased confusion. Unable to obtain history from the patient. History obtained from ER provider and chart review. Patient does have a history of frequent UTIs in the past. Patient was found to be febrile and tachycardic in the ER. Unable to obtain review of systems. Patient was admitted to the hospital for sepsis secondary to UTI, DAISY, thrombocytopenia and lethargy. She was started on IV ceftriaxone for management of UTI. Urine culture is pending. Blood cultures returned positive for Proteus mirabilis and Enterococcus/Streptococcus sp, sensitivities pending at this time. vancomycin was added to her regimine. Infectious Disease consult has been placed but she has not been evaluated at this time. Patient was also admitted with acute kidney injury. Creatinine on arrival was 2.63, with IV fluid creatinine has begun to trend down to 1.48. Bicarbonate level was low at 12 and therefore bicarb was added to her IV fluid with improvement to bicarb of 20 at which time her IVF was changed to LR. In workup for metabolic acidosis, lactic acid was negative, beta hydroxybutyrate was elevated at 3.41 indicating likely starvation ketosis. PPN will be initiated 05/07. Patient was noted to have thrombocytopenia on admission (evening 05/04)with a platelet count of 103. on 05/05 platelets dropped to 55, she had received 1 dose of Lovenox overnight the previous night and then Lovenox was discontinued. HIT panel was obtained and is pending at this time. 05/06 platelets remained low at 41. There was no evidence of DIC or hemolysis. On 05/07 platelets dropped further to 20 and shistocytes were noted on peripheral smear. It was determined that the patient would likely benefit from plasmaphoresis for TTP and transfer to tertiary care facility was discussed with family who was agreeable. [id number] ordered but pending at this time. one unit of FFP was given 05/07. patient has a history of dementia and is a LTC resident at [facility] in [place], [place]. She is awake, alert and confused and she is bedbound at baseline according to her HCP. she failed swallow evaluation and was made NPO. her seizure medications were placed on hold (vimpat and topomax) and she was transitioned to IV keppra. no seizure activity has been noted. Time Spent with Patient Time attestation: Total time managing care of this patient today ____ minutes. Discharge coordination time: Greater than 30 minutes Quality: Safe Use of Opioids Does Pt have an Active Cancer Diagnosis on the Problem List?: No Quality: Stroke Does the patient have a stroke diagnosis?: No Physical Exam Vital Signs: Vital Signs: Last Vital Signs Temp 97.8 F 05/07/23 10:18 Pulse 103 H 05/07/23 10:18 Resp 22 H 05/07/23 10:18 BP 126/72 05/07/23 10:18 Pulse Ox 92 05/07/23 07:42 O2 Del Method Room Air 05/07/23 07:42 BMI result Body Mass Index 20.8 Const: General: no acute distress, alert, awake and confusion Nutritional Appearance: thin Orientation/consciousness: confusion Resp: Effort & Inspection: normal respiratory effort, no respiratory distress and no use of accessory muscles Cardio: Rate: regular rate GI: Inspection: No distended Palpation (GI): Soft to palpation and nontender Neuro: Other: grossly nonfocal, following commands General: moves all extremities and confusion Extrem: General: Yes no pedal edema DS: Data Data Completed and Pending Labs on day of discharge: Laboratory Results - last 24 hr 05/06/23 05/06/23 05/06/23 11:21 12:25 13:11 WBC RBC Hgb Hct MCV MCH MCHC RDW Plt Count MPV Immature Gran % (Auto) Neut % (Auto) Lymph % (Auto) [place] % (Auto) Eos % (Auto) Baso % (Auto) Lymph # (Auto) [place] # (Auto) Eos # (Auto) Baso # (Auto) Abs Immat Gran (auto) Absolute Neuts (auto) Absolute Nucleated RBC Nucleated RBC % (auto) Neutrophils % (Manual) Band Neutrophils % Lymphocytes % (Manual) Monocytes % (Manual) Metamyelocytes % Abs Neuts (Manual) Lymphocytes # (Manual) Monocytes # (Manual) Metamyelocytes # Toxic Vacuolation Platelet Estimate Plt Morphology Comment RBC Morphology Dann Cells Schistocytes PT INR APTT Fibrinogen VBG pH 7.28 L VBG pCO2 25 VBG pO2 46 VBG HCO3 12 L VBG O2 Saturation 70.0 VBG Base Excess -12.7 Sodium Potassium Chloride Carbon Dioxide Anion Gap BUN Creatinine Estim Creat Clear Calc Estimated GFR Random Glucose Lactic Acid Calcium Phosphorus Magnesium Lactate Dehydrogenase Total Creatine Kinase Albumin Beta-Hydroxybutyrate Hold Green Top See Note Ur Random Sodium Ur Random Potassium Blood Type O Positive Antibody Screen NEGATIVE 05/06/23 05/06/23 05/06/23 15:46 15:47 17:17 WBC 17.7 H RBC 3.80 L Hgb 11.0 L Hct 33.5 L MCV 88.2 MCH 28.9 MCHC 32.8 RDW 14.6 Plt Count 41 L MPV 13.5 H Immature Gran % (Auto) Neut % (Auto) Lymph % (Auto) [place] % (Auto) Eos % (Auto) Baso % (Auto) Lymph # (Auto) [place] # (Auto) Eos # (Auto) Baso # (Auto) Abs Immat Gran (auto) Absolute Neuts (auto) Absolute Nucleated RBC 0.000 Nucleated RBC % (auto) 0.0 Neutrophils % (Manual) 84 H Band Neutrophils % 11 H Lymphocytes % (Manual) 1 L Monocytes % (Manual) 4 Metamyelocytes % Abs Neuts (Manual) 16.8 H Lymphocytes # (Manual) 0.2 L Monocytes # (Manual) 0.7 Metamyelocytes # Toxic Vacuolation Platelet Estimate DECREASED Plt Morphology Comment NORMAL RBC Morphology NOTED Kite Cells 3+ (>5) Schistocytes PT 13.0 INR 1.1 APTT 24.7 L Fibrinogen VBG pH VBG pCO2 VBG pO2 VBG HCO3 VBG O2 Saturation VBG Base Excess Sodium Potassium Chloride Carbon Dioxide Anion Gap BUN Creatinine Estim Creat Clear Calc Estimated GFR Random Glucose Lactic Acid Calcium Phosphorus Magnesium Lactate Dehydrogenase 151 Total Creatine Kinase 61 Albumin Beta-Hydroxybutyrate 3.41 H Hold Green Top See Note Ur Random Sodium 39.0 Ur Random Potassium 71.8 Blood Type Antibody Screen 05/06/23 05/07/23 17:18 07:00 WBC 11.5 H RBC 3.31 L Hgb 9.7 L Hct 27.8 L MCV 84.0 MCH 29.3 MCHC 34.9 RDW 14.2 Plt Count 20 L* D MPV Not Reportable Immature Gran % (Auto) Cancelled Neut % (Auto) Cancelled Lymph % (Auto) Cancelled [place] % (Auto) Cancelled Eos % (Auto) Cancelled Baso % (Auto) Cancelled Lymph # (Auto) Cancelled [place] # (Auto) Cancelled Eos # (Auto) Cancelled Baso # (Auto) Cancelled Abs Immat Gran (auto) Cancelled Absolute Neuts (auto) Cancelled Absolute Nucleated RBC 0.000 Nucleated RBC % (auto) 0.0 Neutrophils % (Manual) 62 Band Neutrophils % 31 H Lymphocytes % (Manual) 2 L Monocytes % (Manual) 2 Metamyelocytes % 3 Abs Neuts (Manual) 10.7 H Lymphocytes # (Manual) 0.2 L Monocytes # (Manual) 0.2 Metamyelocytes # 0.3 Toxic Vacuolation PRESENT Platelet Estimate DECREASED Plt Morphology Comment NORMAL RBC Morphology NOTED Dann Cells 3+ (>5) Schistocytes 1+ (0-2) PT INR APTT Fibrinogen > 700 H VBG pH VBG pCO2 VBG pO2 VBG HCO3 VBG O2 Saturation VBG Base Excess Sodium 145 Potassium 2.9 L D Chloride 114 H Carbon Dioxide 20 L Anion Gap 14 BUN 44 H Creatinine 1.48 H Estim Creat Clear Calc 24.7 Estimated GFR 34 Random Glucose 145 H Lactic Acid 1.2 Calcium 8.0 L Phosphorus 1.6 L Magnesium 1.8 Lactate Dehydrogenase Total Creatine Kinase Albumin 2.2 L Beta-Hydroxybutyrate Hold Green Top Ur Random Sodium Ur Random Potassium Blood Type Antibody Screen Preliminary micro results at discharge 05/04/23 21:49 Blood Culture - Preliminary Blood - Venous Proteus mirabilis Enterococcus/Streptococcus sp 05/05/23 14:03 Blood Culture - Preliminary Blood - Venous No growth after 24 hours. 05/05/23 14:03 Blood Culture - Preliminary Blood - Venous No growth after 24 hours. 05/05/23 Unknown Urine Culture - Preliminary Urine clean catch - Urine de [place] ve[place] top Culture in progress. Discharge Plan Discharge Patient Disposition: Xfer [facility] Discharge Diagnosis: sepsis secondary to UTI/bacteremia proteus mirabilis and enterococcus/streptococcus sp bacteremia DAISY thrombocytopenia with concern for TTP encephalopathy with underlying dementia Referrals: Maximus Silverio MD [Primary Care Provider] - 1 Week Discharge Medications: Continued bisacodyl 10 mg Suppository 10 mg NE DAILY PRN (Reason: Constipation) Discontinued sennosides 8.6 mg Tablet 8.6 mg PO BID acetaminophen [Tylenol] 325 mg Tablet 650 mg PO Q6H PRN (Reason: Pain) polyethylene glycol 3350 [Miralax] 17 gram Powder In Packet 17 g PO DAILY PRN (Reason: Constipation) melatonin 3 mg Tablet 6 mg PO BEDTIME PRN (Reason: Insomnia) magnesium hydroxide [Milk of Magnesia] 400 mg/5 mL Suspension 5 ml PO DAILY PRN (Reason: Constipation) pyridoxine (vitamin B6) 50 mg Tablet 50 mg PO DAILY folic acid 1 mg Tablet 1 mg PO DAILY topiramate 50 mg Tablet 75 mg PO BID lacosamide 200 mg Tablet 200 mg PO BID omeprazole 40 mg capsule,delayed release(DR/EC) 40 mg PO BID Qty: 60 0RF ondansetron HCl 4 mg Tablet 4 mg PO Q8H PRN (Reason: Nausea) potassium chloride 10 mEq Tablet Extended Release 10 meq PO DAILY Saccharomyces boulardii 250 mg Capsule 250 mg PO BID No Action (DME) walker with wheels, seat & brakes See Rx Instructions .Route .MEDSUPPLY Qty: 1 0RF Rx Instructions: daily use Activity on Discharge: As tolerated Stand Alone Forms: Patient Portal Discharge page Care Plan Goals: see below Health Concerns: thrombocytopenia with concern for TTP DAISY sepsis secondary to UTI bacteremia - blood growing proteus mirabilis and enterococcus/streptococcus sp (Sensitivities pending) metabolic encephalopathy with underlying dementia Plan of Treatment: transfer to tertiary care facility for management of TTP requiring plasmapheresis Assessment: 82 year old LTC resident of [facility] with history of dementia and seizure disorder who was sent in for lethargy found to have sepsis secondary to UTI, bacteremia, DAISY, severe thrombocytopenia with concern for TTP in transfer to tertiary care facility for possible plasmapheresis
[2023-05-07] MEDS: Potassium Chloride/H20 10 MEQ/100 ML PIGGYBACK 100 MEQ IV ×2 (10:51→11:59)
--- NOTE | 2023-05-07 10:53 | PM.HEMONCCN ---
Subjective - Subjective Chief complaint: DAISY and thrombocytopenia Patient: new to practice Consult date: 05/07/23 Primary Care Provider: Maximus Silverio MD HPI - Consult Narrative Reason for consult: anemia, daisy, sepsis and thrombocytopenia Narrative: Ami Aviles is a 82 year old female admitted 05/05/2023 for gram negative sepsis and DAISY. Her renal function is improving with hydration and antibiotics. Her platelet count has fallen to 20,000. She has not been on aspirin. The DVT prophylaxix has been stopped and an HIT evaluation was ordered and is pending. She is not currently bleeding. Her LDH is normal as is her admission bilirubin. A haptoglobin is pending. There are schistocytes on peripheral blood examination. Nephrology is suggesting on tigertext a transfer to tertiary care for possible TTP but doubts HUS. Review of Systems - Constitutional Reports anorexia, Reports weakness - Cardiovascular Reports fast heart rate - Respiratory Reports dyspnea on exertion - Gastrointestinal Reports other - Genitourinary Reports frequent nighttime urination - Musculoskeletal Reports muscle weakness - Neurologic Reports confusion PMFSH Medical History: Medical History (Last Reviewed 05/05/23 @ 01:19 by Vandana Garcia MD) Alcohol use disorder Alcoholic cirrhosis Anxiety Distal radius fracture, right Onset Date: ~2020 Epilepsy Essential hypertension Hyperlipidemia Osteoporosis Onset Date: ~2017 Personal history of nicotine dependence Right patella fracture Onset Date: ~2011 Tubulovillous adenoma of colon Onset Date: ~2001 Family History: Family History (Last Reviewed 05/05/23 @ 01:19 by Vandana Garcia MD) Other Substance use disorder Surgical History: Surgical History (Last Reviewed 05/05/23 @ 01:19 by Vandana Garcia MD) History of appendectomy History of bronchoscopy Onset Date: ~2009 History of colonoscopy Onset Date: ~2001 History of cystoscopy Onset Date: ~2001 History of hysterectomy History of right knee surgery Onset Date: ~2011 History of surgery on right wrist Onset Date: ~2020 History of tonsillectomy Onset Date: ~1943 Social History: Social History (Last Reviewed 05/05/23 @ 01:19 by Vandana Garcia MD) Living Situation History: Household Members: None Housing: [facility] Do you presently have visiting nurse or other home services: No Alcohol History: Unable to assess alcohol history related to: Unable to respond Tobacco History: Patient Tobacco Use Status: Never used Tobacco Cigarette Packs Per Day: 0.5 e-Cigarette/Vaping Use: Never Used Second Hand Smoke Exposure: No Advance Directives: Advance Directives Date on File: 08/05/22 Occupation Assessmet: service: No Current occupational status: retired 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 occupation: Right 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 Home Medications and Allergies Current Medications: Current Medications Acetaminophen (Acetaminophen Supp 650 Mg Supp.Rect) 650 mg ND Q6H PRN PRN Reason: Pain, Mild (Pain Scale 1-3) Last Admin: 05/05/23 02:27 Dose: 650 mg Bisacodyl (Bisacodyl 10 Mg Supp.Rect) 10 mg ND DAILY PRN PRN Reason: Constipation Folic Acid (Folic Acid 1 Mg Tablet) 1 mg PO DAILY [facility] Last Admin: 05/07/23 07:28 Dose: Not Given Ceftriaxone Sodium 2 gm/ (Sodium Chloride) 50 mls @ 100 mls/hr IV Q24H [facility] Last Infusion: 05/06/23 11:19 Dose: Infused Vancomycin HCl 500 mg/ Sodium (Chloride) 110 mls @ 110 mls/hr IV Q24H [facility] Last Infusion: 05/06/23 16:17 Dose: Infused Levetiracetam (Keppra) 500 mg in 100 mls @ 400 mls/hr IV Q12H [facility] Last Infusion: 05/07/23 03:19 Dose: Infused Sodium Bicarbonate 150 meq/ (Dextrose) 1,000 mls @ 125 mls/hr IV .Q8H [facility] Last Infusion: 05/07/23 10:29 Dose: 0 mls/hr Potassium Chloride (Potassium Chloride/H20) 10 meq in 100 mls @ 100 mls/hr IV Q1H [facility] Stop: 05/07/23 11:59 Lacosamide (Lacosamide Oral Solution 100 Mg/10 Ml Solution) 150 mg PO BID [facility] Last Admin: 05/06/23 10:59 Dose: Not Given Melatonin (Melatonin 3 Mg Tablet) 6 mg PO BEDTIME PRN PRN Reason: Insomnia Omeprazole (Omeprazole 40 Mg Capsule.Dr) 40 mg PO BID [facility] Last Admin: 05/07/23 07:28 Dose: Not Given Pharmacy Consult (Consult Rx Vancomycin Dosing) 1 each MISCELLANE DAILY PRN PRN Reason: Consult order Pharmacy Consult (Consult Rx Parenteral Nutrition Ordering) 1 each MISCELLANE DAILY PRN PRN Reason: Consult order Polyethylene Glycol (Polyethylene Glycol 3350 17 Gm Powd.Pack) 17 gm PO DAILY PRN PRN Reason: Constipation Senna (Sennosides 8.6 Mg Tablet) 8.6 mg PO BID [facility] Last Admin: 05/07/23 07:28 Dose: Not Given Sodium Chloride (0.9 % Sodium Chloride Flush 3 Ml Syringe) 3 ml IVFLUSH QSHIFT [facility] Last Admin: 05/07/23 07:28 Dose: Not Given Topiramate (Topiramate 25 Mg Tablet) 37.5 mg PO BID [facility] Last Admin: 05/06/23 08:53 Dose: Not Given Home Medications Medication Instructions Recorded Confirmed Type acetaminophen 325 mg tablet 650 mg PO Q6H PRN Pain 08/05/22 05/04/23 History (Tylenol) bisacodyl 10 mg rectal suppository 10 mg ND DAILY PRN Constipation 08/05/22 05/04/23 History folic acid 1 mg tablet 1 mg PO DAILY 08/05/22 05/04/23 History lacosamide 200 mg tablet 200 mg PO BID 08/05/22 05/04/23 History magnesium hydroxide 400 mg/5 mL 5 ml PO DAILY PRN Constipation 08/05/22 05/04/23 History oral suspension (Milk of Magnesia) melatonin 3 mg tablet 6 mg PO BEDTIME PRN Insomnia 08/05/22 05/04/23 History polyethylene glycol 3350 17 gram 17 g PO DAILY PRN Constipation 08/05/22 05/04/23 History oral powder packet (Miralax) pyridoxine (vitamin B6) 50 mg 50 mg PO DAILY 08/05/22 05/04/23 History tablet sennosides 8.6 mg tablet 8.6 mg PO BID 08/05/22 05/04/23 History topiramate 50 mg tablet 75 mg PO BID 08/05/22 05/05/23 History Saccharomyces boulardii 250 mg 250 mg PO BID 05/04/23 05/04/23 History capsule ondansetron HCl 4 mg tablet 4 mg PO Q8H PRN Nausea 05/04/23 05/04/23 History potassium chloride 10 mEq 10 meq PO DAILY 05/04/23 05/04/23 History tablet,extended release Allergies Allergy/AdvReac Type Severity Reaction Status Date / Time atorvastatin Allergy Mild Swelling Verified 09/07/22 11:18 alendronate sodium [Fosamax] Allergy Unknown unknown Verified 09/07/22 11:18 amitriptyline [From Elavil] AdvReac Mild Hallucinati Verified 09/07/22 11:18 ons ciprofloxacin [Cipro] AdvReac Unknown blister Verified 09/07/22 11:18 lisinopril AdvReac Unknown throat Verified 09/07/22 11:18 swelling, cough Physical Exam Vital signs: Vital Signs Temp 97.6 F 05/07/23 10:35 Pulse 101 H 05/07/23 10:35 Resp 20 05/07/23 10:35 BP 115/70 05/07/23 10:35 Pulse Ox 92 05/07/23 07:42 O2 Del Method Room Air 05/07/23 07:42 Intake & Output 05/06/23 05/07/23 05/07/23 18:59 06:59 18:59 Intake Total 1743.334 / 2720.417 977.083 / 2720.417 1183.334 / 1183.334 Output Total 500 / 1050 550 / 1050 Balance 1243.334 / 1670.417 427.083 / 7768.612 3194.334 / 1183.334 Urine Output (Average ml/kg/hr) 0.78 0.86 0.86 Intake: Intake (Blood Product) Amount 0 / 0 Thawed Plasma (E2720) Unit 0 / 0 [id number] Intake, IV Amount 1743.334 / 2720.417 977.083 / 2720.417 1183.334 / 1183.334 Sodium Bicarbonate 8.4% 150 meq 286.667 / 1163.750 877.083 / 4521.316 8383.334 / 1183.334 In Dextrose 5 % 850 ml @ 125 mls/hr IV .Q8H [facility] Rx#: [id number] cefTRIAXone sodium 2 gm In 0.9 50 / 50 % Sodium Chloride 50 ml @ 100 mls/hr IV Q24H [facility] Rx#: [id number] levETIRAcetam in NaCl (iso-os) 100 / 200 100 / 200 500 mg In 100 ml @ 400 mls/hr IV Q12H [facility] Rx#:[id number] vancomycin HCL 500 mg In 0.9 % 110 / 110 Sodium Chloride 100 ml @ 110 mls/hr IV Q24H [facility] Rx#: [id number] Dextrose 5 % and Lactated Ring 421.667 / 421.667 1,000 ml @ 100 mls/hr IVCONT . Q10H [facility] Rx#:[id number] Lactated Ringers 1,000 ml @ 100 775 / 775 mls/hr IVCONT .Q10H [facility] Rx#: [id number] Output: Output, Urine Amount 500 / 500 Output, Urine Amount (Catheter) 550 / 550 Purewick 200 / 200 Urethral 350 / 350 Other: NPO Yes Number of Incontinent Voids 1 Urine Color Yellow Last Bowel Movement 05/05/23 Weight 53.2 kg - Constitutional Present: no acute distress - Routine HEENT Exam Head: Present: atraumatic ENT: Present: mucous membranes dry - Routine Neck Exam Present: supple - Routine Respiratory Exam Present: decreased breath sounds - Routine Cardiovascular Exam Cardiovascular: Present: tachycardia - Routine Abdominal Exam Present: diminished bowel sounds - Routine Extremities Exam Present: pulses intact - Routine Skin Exam Present: dry - Routine Neurological Exam Present: moving all extremities Hem/Onc Consult Result - Labs CBC & Chem 7: 05/07/23 07:00 05/07/23 07:00 Labs: Short CBC 05/06/23 05/07/23 Range/Units 15:46 07:00 WBC 17.7 H 11.5 H (4.8-10.8) X10*3/uL Hgb 11.0 L 9.7 L (12.0-16.0) g/dl Hct 33.5 L 27.8 L (37.0-47.0) % Plt Count 41 L 20 L* D (160-400) X10*3/uL BMP 05/07/23 07:00 Sodium 145 Potassium 2.9 L D Chloride 114 H Carbon Dioxide 20 L BUN 44 H Creatinine 1.48 H Calcium 8.0 L Cardiac Enzymes 05/06/23 Range/Units 17:17 Total Creatine Kinase 61 (26-140) U/L Liver Function 05/07/23 Range/Units 07:00 Albumin 2.2 L (3.5-5.0) g/dL Assessment and Plan Patient Active problem list reviewed?: Yes (1) Thrombocytopenia Status: Acute Assessment and plan: Recommend daily PT,PTT, DDimer, bili and ldh. No bleeding at present. ould transfuse platelets for any bleeding or to keep platelets above 1o,ooo. Aggressively treat sepsis. If nephrology suggests transfer to tertiary care I have no objection. Will await HIT workup.Treatment for TTP is not available here and would require tertiary care. (2) Thrombocytopenia Status: Acute - Time Spent With Patient Time Spent with Patient (in minutes): 30
--- NOTE | 2023-05-07 11:16 | PM.CNNEP ---
History of Present Illness Reason for Consult Consult date: 05/07/23 Chief Complaint Chief complaint: altered mentation History of Present Illness Narrative: Ms. Ami Aviles is an 82-year-old female with past medical history of alcohol use disorder, seizure disorder, mood disorder who presented with DAISY in the setting of urosepsis with bacteremia. DAISY accompanied by simultaneous AG and non-gap metabolic acidoses attributed to renal failure (RTA) and Ketosis (starvation). Metabolics significantly improved with isotonic IVF support. However thrombocytopenia and AMS set in, accompanied by schistocytes. Review of Systems Review of Systems Yes all other systems are reviewed and are negative and Unobtainable due to mental status Constitutional: Reports anorexia and Reports weakness Cardiovascular: Denies chest pain, Reports rapid heart rate and Reports dyspnea on exertion Respiratory: Reports dyspnea on exertion Gastrointestinal: Denies abdominal pain and Reports other Musculoskeletal: Reports muscle weakness Reports confusion and Reports weakness Psychiatric: Reports confusion PMFSH Past Medical History Medical History Alcoholic cirrhosis Epilepsy Personal history of nicotine dependence Tubulovillous adenoma of colon (~2001) Right patella fracture (~2011) Hyperlipidemia Essential hypertension Alcohol use disorder Distal radius fracture, right (~2020) Osteoporosis (~2017) Anxiety Family History Family History Other Substance use disorder Surgical History Surgical History History of tonsillectomy (~1944) History of appendectomy History of surgery on right wrist (~2020) History of cystoscopy (~2001) History of colonoscopy (~2001) History of bronchoscopy (~2009) History of hysterectomy History of right knee surgery (~2011) Social History Social History Household Members: None Housing: [facility] Do you presently have visiting nurse or other home services: No Unable to assess alcohol history related to: Unable to respond Alcohol intake: never Patient Tobacco Use Status: Never used Tobacco Cigarette Packs Per Day: 0.5 e-Cigarette/Vaping Use: Never Used Second Hand Smoke Exposure: No Advance Directives Date on File: 08/05/22 service: No Current occupational status: retired Current occupation: Right Handed Cognitive needs: No Hearing needs: No Vision needs: No Meds Allergies Allergy/AdvReac Type Severity Reaction Status Date / Time atorvastatin Allergy Mild Swelling Verified 09/07/22 11:18 alendronate sodium [Fosamax] Allergy Unknown unknown Verified 09/07/22 11:18 amitriptyline [From Elavil] AdvReac Mild Hallucinati Verified 09/07/22 11:18 ons ciprofloxacin [Cipro] AdvReac Unknown blister Verified 09/07/22 11:18 lisinopril AdvReac Unknown throat Verified 09/07/22 11:18 swelling, cough Active Medications: Current Medications Acetaminophen (Acetaminophen Supp 650 Mg Supp.Rect) 650 mg [place] Q6H PRN PRN Reason: Pain, Mild (Pain Scale 1-3) Last Admin: 05/05/23 02:27 Dose: 650 mg Bisacodyl (Bisacodyl 10 Mg Supp.Rect) 10 mg [place] DAILY PRN PRN Reason: Constipation Folic Acid (Folic Acid 1 Mg Tablet) 1 mg PO DAILY [facility] Last Admin: 05/07/23 07:28 Dose: Not Given Ceftriaxone Sodium 2 gm/ (Sodium Chloride) 50 mls @ 100 mls/hr IV Q24H [facility] Last Infusion: 05/06/23 11:19 Dose: Infused Vancomycin HCl 500 mg/ Sodium (Chloride) 110 mls @ 110 mls/hr IV Q24H [facility] Last Infusion: 05/06/23 16:17 Dose: Infused Levetiracetam (Keppra) 500 mg in 100 mls @ 400 mls/hr IV Q12H [facility] Last Infusion: 05/07/23 03:19 Dose: Infused Sodium Bicarbonate 150 meq/ (Dextrose) 1,000 mls @ 125 mls/hr IV .Q8H [facility] Last Infusion: 05/07/23 10:29 Dose: 0 mls/hr Potassium Chloride (Potassium Chloride/H20) 10 meq in 100 mls @ 100 mls/hr IV Q1H [facility] Stop: 05/07/23 11:59 Last Admin: 05/07/23 10:51 Dose: 100 mls/hr Lacosamide (Lacosamide Oral Solution 100 Mg/10 Ml Solution) 150 mg PO BID [facility] Last Admin: 05/06/23 10:59 Dose: Not Given Melatonin (Melatonin 3 Mg Tablet) 6 mg PO BEDTIME PRN PRN Reason: Insomnia Omeprazole (Omeprazole 40 Mg Capsule.Dr) 40 mg PO BID [facility] Last Admin: 05/07/23 07:28 Dose: Not Given Pharmacy Consult (Consult Rx Vancomycin Dosing) 1 each MISCELLANE DAILY PRN PRN Reason: Consult order Pharmacy Consult (Consult Rx Parenteral Nutrition Ordering) 1 each MISCELLANE DAILY PRN PRN Reason: Consult order Polyethylene Glycol (Polyethylene Glycol 3350 17 Gm Powd.Pack) 17 gm PO DAILY PRN PRN Reason: Constipation Senna (Sennosides 8.6 Mg Tablet) 8.6 mg PO BID [facility] Last Admin: 05/07/23 07:28 Dose: Not Given Sodium Chloride (0.9 % Sodium Chloride Flush 3 Ml Syringe) 3 ml IVFLUSH QSHIFT [facility] Last Admin: 05/07/23 07:28 Dose: Not Given Topiramate (Topiramate 25 Mg Tablet) 37.5 mg PO BID [facility] Last Admin: 05/06/23 08:53 Dose: Not Given Home Medications Medication Instructions Recorded Confirmed Last Taken Type acetaminophen 325 mg tablet 650 mg PO Q6H PRN Pain 08/05/22 05/04/23 Unknown History (Tylenol) bisacodyl 10 mg rectal suppository 10 mg NH DAILY PRN Constipation 08/05/22 05/04/23 Unknown History folic acid 1 mg tablet 1 mg PO DAILY 08/05/22 05/04/23 Unknown History lacosamide 200 mg tablet 200 mg PO BID 08/05/22 05/04/23 Unknown History magnesium hydroxide 400 mg/5 mL 5 ml PO DAILY PRN Constipation 08/05/22 05/04/23 Unknown History oral suspension (Milk of Magnesia) melatonin 3 mg tablet 6 mg PO BEDTIME PRN Insomnia 08/05/22 05/04/23 Unknown History polyethylene glycol 3350 17 gram 17 g PO DAILY PRN Constipation 08/05/22 05/04/23 Unknown History oral powder packet (Miralax) pyridoxine (vitamin B6) 50 mg 50 mg PO DAILY 08/05/22 05/04/23 Unknown History tablet sennosides 8.6 mg tablet 8.6 mg PO BID 08/05/22 05/04/23 Unknown History topiramate 50 mg tablet 75 mg PO BID 08/05/22 05/05/23 Unknown History Saccharomyces boulardii 250 mg 250 mg PO BID 05/04/23 05/04/23 Unknown History capsule ondansetron HCl 4 mg tablet 4 mg PO Q8H PRN Nausea 05/04/23 05/04/23 Unknown History potassium chloride 10 mEq 10 meq PO DAILY 05/04/23 05/04/23 Unknown History tablet,extended release Physical Exam Vital Signs: Last Vital Signs Temp 97.6 F 05/07/23 10:35 Pulse 101 H 05/07/23 10:35 Resp 20 05/07/23 10:35 BP 115/70 05/07/23 10:35 Pulse Ox 92 05/07/23 07:42 O2 Del Method Room Air 05/07/23 07:42 BMI result Body Mass Index 20.8 Const General: no acute distress, alert, awake and confusion Nutritional Appearance: thin Orientation/consciousness: confusion Resp Effort & Inspection: normal respiratory effort, no respiratory distress and no use of accessory muscles Cardio Rate: regular rate GI Inspection: No distended Palpation (GI): Soft to palpation and nontender Neuro Other: grossly nonfocal, following commands General: moves all extremities and confusion Extrem General: Yes no pedal edema Results Lab Results 05/07/23 07:00 05/07/23 07:00 Lab results: Chemistry 05/04/23 05/05/23 05/06/23 21:04 05:31 08:30 Sodium 137 141 142 Potassium 4.1 4.4 4.0 Carbon Dioxide 17 L 15 L 12 L BUN 40 H 42 H 49 H Creatinine 2.63 H 2.39 H 1.99 H Calcium 8.5 8.0 L 8.4 Phosphorus 05/07/23 07:00 Sodium 145 Potassium 2.9 L D Carbon Dioxide 20 L BUN 44 H Creatinine 1.48 H Calcium 8.0 L Phosphorus 1.6 L Hematology 05/04/23 05/05/23 05/06/23 21:04 07:30 08:30 WBC 23.3 H 13.6 H 19.0 H Hgb 11.4 L 11.1 L 10.7 L Plt Count 103 L D 55 L D 41 L D 05/06/23 05/07/23 15:46 07:00 WBC 17.7 H 11.5 H Hgb 11.0 L 9.7 L Plt Count 41 L 20 L* D Urinalysis 09/22/23 01:32 Urine Color Dark Yellow Urine Appearance Turbid Urine pH 6.5 Ur Specific Perry 1.020 Urine Protein 300 (3+) H Urine Glucose (UA) Negative Urine Ketones Trace Urine Blood Moderate (2+) H Urine Nitrite Negative Ur Leukocyte Esterase Large (3+) H Urine RBC >20 H Urine WBC >50 H Ur Squamous Epith Cells >20 Hyaline Casts >20 Assessment and Plan (1) DAISY (acute kidney injury): Status: Acute (2) Sepsis: Status: Acute (3) Acute UTI: Status: Acute (4) Bacteremia: Status: Acute (5) Thrombocytopenia: Status: Acute Plan Ms. Ami Aviles is an 82-year-old female with past medical history of alcohol use disorder, seizure disorder, mood disorder who presented with DAISY in the setting of urosepsis with bacteremia. DAISY accompanied by simultaneous AG and non-gap metabolic acidoses attributed to renal failure (RTA) and Ketosis (starvation). Metabolics significantly improved with isotonic IVF support. However thrombocytopenia and AMS set in, accompanied by schistocytes. Sepsis due to UTI/ bacteremia blood cultures growing GNR and enterococcus/streptococcus sp Acute kidney injury renal function improved from 2.63 to 1.99, but still above baseline Pre-renal azotemia +/- ATN Highly doubt TMA / a-HUS thrombocytopenia Likely TTP given AMS and schistocytes. JERSEY ruled out DIC ruled out AGMA and Non-gap Lactate elevated (AG) RTA from renal failure ([place]) BHB ketones elevated (AG) Plan: - change IVF from isotonic bicarb to LR - FFP to temporize TTP - check [id number] - PLEX without delay, planning transfer. can stop PLEX when [id number] returns - YESSENIA testing (should be negative) Time Spent With Patient Time: Total time managing care of this patient today ____ minutes. Procedures Date of Service Date of Service: 05/07/23
[2023-05-07] MEDS: Lactated Ringers 1,000 ML 100 ML IVCONT (11:52)
[2023-05-07 12:42] LABS: Vancomycin Random 10.9 mcg/mL (15-20)
--- NOTE | 2023-05-07 12:55 | HE.PHANOTE ---
RE: vanco Trough on 05/07 came back at 10.9 mg/L. Patient's renal function has been improving, increased dose to 750mg Q24 with predicted trough of 18.3, AUC of 546. Next level to be drawn 05/08 @1200
[2023-05-07] MEDS: cefTRIAXone sodium 2 GM in 0.9 % Sodium Chloride 50 ML IV (12:56)
[2023-05-07] MEDS: vancomycin HCL 750 MG in 0.9 % Sodium Chloride 250 ML 265 MG IV (13:46)
--- NOTE | 2023-05-07 14:36 | MHC.CM.PN ---
Addendum entered by Dolly Yao 05/08/23 08:53: PTS LTC FACILITY RESPONDED THIS MORNING STATING THEY DO NOT DO ANY IV MEDS EXCEPT ABX. 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
--- NOTE | 2023-05-07 16:19 | HO.PM.IMPN ---
Subjective Subjective Date of Service: 05/07/23 Interval History: seen and examined this morning follow up for uti, sepsis, bacteremia, daisy, thrmbocytopenia no overnight events no specific complaints - denies pain but otherwise hard to get full ROS Neurologic Neurologic: Reports confusion Psychiatric Psychiatric: Reports confusion Physical Exam Vital Signs: Vital Signs: Last Vital Signs Temp 98.1 F 05/07/23 15:34 Pulse 105 H 05/07/23 15:34 Resp 20 05/07/23 15:34 BP 124/73 05/07/23 15:34 Pulse Ox 90 L 05/07/23 15:34 O2 Del Method Room Air 05/07/23 15:34 BMI result Body Mass Index 20.8 Const: Other: periods of wakefulness and sleepiness, while awake will follow some commands; General: no acute distress and confusion Nutritional Appearance: thin Orientation/consciousness: confusion Resp: Effort & Inspection: normal respiratory effort, no respiratory distress and no use of accessory muscles Cardio: Rate: regular rate GI: Inspection: No distended Palpation (GI): Soft to palpation and nontender Neuro: Other: grossly nonfocal, following some simple commands General: moves all extremities and confusion Extrem: General: Yes no pedal edema Objective Data Active Medications Acetaminophen (Acetaminophen Supp 650 Mg Supp.Rect) 650 mg [place] Q6H PRN PRN Reason: Pain, Mild (Pain Scale 1-3) Last Admin: 05/05/23 02:27 Dose: 650 mg Documented By: KIM Bisacodyl (Bisacodyl 10 Mg Supp.Rect) 10 mg CA DAILY PRN PRN Reason: Constipation Folic Acid (Folic Acid 1 Mg Tablet) 1 mg PO DAILY [facility] Last Admin: 05/07/23 07:28 Dose: Not Given Documented By: CHLOÉ Non-Admin Reason: NPO Ceftriaxone Sodium 2 gm/ (Sodium Chloride) 50 mls @ 100 mls/hr IV Q24H [facility] Last Infusion: 05/07/23 13:52 Dose: Infused Documented By: CHLOÉ Levetiracetam (Keppra) 500 mg in 100 mls @ 400 mls/hr IV Q12H [facility] Last Infusion: 05/07/23 15:49 Dose: Infused Documented By: CHLOÉ Lactated Ringer's (Lr) 1,000 mls @ 100 mls/hr IVCONT .Q10H [facility] Last Admin: 05/07/23 11:52 Dose: 100 mls/hr Documented By: CHLOÉ Nutrition (Parenteral) (Parenteral Nutrition) 1,080 mls @ 45 mls/hr IV .Q24H [facility]; Protocol Stop: 05/08/23 20:59 Vancomycin HCl 750 mg/ Sodium (Chloride) 265 mls @ 265 mls/hr IV Q24H [facility] Last Infusion: 05/07/23 14:47 Dose: Infused Documented By: CHLOÉ Lacosamide (Lacosamide Oral Solution 100 Mg/10 Ml Solution) 150 mg PO BID [facility] Last Admin: 05/06/23 10:59 Dose: Not Given Documented By: CHLOÉ Non-Admin Reason: Patient Refused Lorazepam (Lorazepam 0.5 Mg Tablet) 0.5 mg SUBLINGUAL Q4H PRN PRN Reason: anxiety/restlessness Melatonin (Melatonin 3 Mg Tablet) 6 mg PO BEDTIME PRN PRN Reason: Insomnia Morphine Sulfate (Morphine Sulfate 2 Mg/Ml Cartridge) 2 mg IM Q4H PRN PRN Reason: Discomfort/Shortness of breath Omeprazole (Omeprazole 40 Mg Capsule.Dr) 40 mg PO BID [facility] Last Admin: 05/07/23 07:28 Dose: Not Given Documented By: CHLOÉ Non-Admin Reason: NPO Pharmacy Consult (Consult Rx Vancomycin Dosing) 1 each MISCELLANE DAILY PRN PRN Reason: Consult order Pharmacy Consult (Consult Rx Parenteral Nutrition Ordering) 1 each MISCELLANE DAILY PRN PRN Reason: Consult order Polyethylene Glycol (Polyethylene Glycol 3350 17 Gm Powd.Pack) 17 gm PO DAILY PRN PRN Reason: Constipation Scopolamine (Scopolamine 1.5 Mg Patch.Td.3) 1.5 mg TRANSDERMA Q72H [facility] Senna (Sennosides 8.6 Mg Tablet) 8.6 mg PO BID [facility] Last Admin: 05/07/23 07:28 Dose: Not Given Documented By: CHLOÉ Non-Admin Reason: NPO Sodium Chloride (0.9 % Sodium Chloride Flush 3 Ml Syringe) 3 ml IVFLUSH QSHIFT [facility] Last Admin: 05/07/23 15:39 Dose: Not Given Documented By: CHLOÉ Non-Admin Reason: IV Running Topiramate (Topiramate 25 Mg Tablet) 37.5 mg PO BID [facility] Last Admin: 05/06/23 08:53 Dose: Not Given Documented By: CHLOÉ Non-Admin Reason: NPO Labs 05/07/23 07:00 05/07/23 07:00 Labs: Laboratory Results - last 24 hr 05/06/23 05/06/23 05/06/23 13:11 15:46 15:47 MCV MCH MCHC RDW Plt Count MPV Immature Gran % (Auto) Neut % (Auto) Lymph % (Auto) [place] % (Auto) Eos % (Auto) Baso % (Auto) Lymph # (Auto) [place] # (Auto) Eos # (Auto) Baso # (Auto) Abs Immat Gran (auto) Absolute Neuts (auto) Absolute Nucleated RBC Nucleated RBC % (auto) Neutrophils % (Manual) 84 H Band Neutrophils % 11 H Lymphocytes % (Manual) 1 L Monocytes % (Manual) 4 Metamyelocytes % Abs Neuts (Manual) 16.8 H Lymphocytes # (Manual) 0.2 L Monocytes # (Manual) 0.7 Metamyelocytes # Toxic Vacuolation Platelet Estimate DECREASED Plt Morphology Comment NORMAL RBC Morphology NOTED Dann Cells 3+ (>5) Schistocytes Fibrinogen Anion Gap Estim Creat Clear Calc Estimated GFR Random Glucose Lactic Acid Calcium Phosphorus Magnesium Lactate Dehydrogenase Total Creatine Kinase Albumin Beta-Hydroxybutyrate Ur Random Sodium 39.0 Ur Random Potassium 71.8 Random Vancomycin Blood Type O Positive Antibody Screen NEGATIVE 05/06/23 05/06/23 05/07/23 17:17 17:18 07:00 MCV 84.0 MCH 29.3 MCHC 34.9 RDW 14.2 Plt Count 20 L* D MPV Not Reportable Immature Gran % (Auto) Cancelled Neut % (Auto) Cancelled Lymph % (Auto) Cancelled [place] % (Auto) Cancelled Eos % (Auto) Cancelled Baso % (Auto) Cancelled Lymph # (Auto) Cancelled [place] # (Auto) Cancelled Eos # (Auto) Cancelled Baso # (Auto) Cancelled Abs Immat Gran (auto) Cancelled Absolute Neuts (auto) Cancelled Absolute Nucleated RBC 0.000 Nucleated RBC % (auto) 0.0 Neutrophils % (Manual) 62 Band Neutrophils % 31 H Lymphocytes % (Manual) 2 L Monocytes % (Manual) 2 Metamyelocytes % 3 Abs Neuts (Manual) 10.7 H Lymphocytes # (Manual) 0.2 L Monocytes # (Manual) 0.2 Metamyelocytes # 0.3 Toxic Vacuolation PRESENT Platelet Estimate DECREASED Plt Morphology Comment NORMAL RBC Morphology NOTED Dann Cells 3+ (>5) Schistocytes 1+ (0-2) Fibrinogen > 700 H Anion Gap 14 Estim Creat Clear Calc 24.7 Estimated GFR 34 Random Glucose 145 H Lactic Acid 1.2 Calcium 8.0 L Phosphorus 1.6 L Magnesium 1.8 Lactate Dehydrogenase 151 Total Creatine Kinase 61 Albumin 2.2 L Beta-Hydroxybutyrate 3.41 H Ur Random Sodium Ur Random Potassium Random Vancomycin Blood Type Antibody Screen 05/07/23 12:09 MCV MCH MCHC RDW Plt Count MPV Immature Gran % (Auto) Neut % (Auto) Lymph % (Auto) [place] % (Auto) Eos % (Auto) Baso % (Auto) Lymph # (Auto) [place] # (Auto) Eos # (Auto) Baso # (Auto) Abs Immat Gran (auto) Absolute Neuts (auto) Absolute Nucleated RBC Nucleated RBC % (auto) Neutrophils % (Manual) Band Neutrophils % Lymphocytes % (Manual) Monocytes % (Manual) Metamyelocytes % Abs Neuts (Manual) Lymphocytes # (Manual) Monocytes # (Manual) Metamyelocytes # Toxic Vacuolation Platelet Estimate Plt Morphology Comment RBC Morphology [place] Cells Schistocytes Fibrinogen Anion Gap Estim Creat Clear Calc Estimated GFR Random Glucose Lactic Acid Calcium Phosphorus Magnesium Lactate Dehydrogenase Total Creatine Kinase Albumin Beta-Hydroxybutyrate Ur Random Sodium Ur Random Potassium Random Vancomycin 10.9 L Blood Type Antibody Screen Microbiology Microbiology Results: Microbiology 05/05/23 14:03 Blood Culture - Preliminary Blood - Venous No growth after 48 hours. 05/05/23 14:03 Blood Culture - Preliminary Blood - Venous No growth after 48 hours. 05/05/23 Unknown Urine Culture - Preliminary Urine clean catch - Urine de [place] top Gram negative nathan 05/04/23 21:49 Blood Culture - Preliminary Blood - Venous Proteus mirabilis Enterococcus/Streptococcus sp 05/04/23 21:04 Blood Culture - Final Blood - Venous Proteus mirabilis Assessment and Plan (1) Thrombocytopenia: Status: Acute (2) Bacteremia: Status: Acute (3) DAISY (acute kidney injury): Status: Acute (4) Sepsis: Status: Acute (5) Anemia: Status: Acute (6) Acute UTI: Status: Acute Plan This is a 82-year-old female with pertinent history of alcohol use disorder, seizure disorder, mood disorder was sent to the emergency department from SNF for evaluation of increased confusion. platelets continue to drop, schistocytes on peripheral smear - discussed with nephrology and hematology - recommend transfer to tertiary care facility for possible plasmaphoresis. initially discussed transfer to [facility] and was accepted and transfer intiated however upon further discussion with daughters including Marilee FERN over the phone and at the bedside - they have opted not to transfer the patient and would like to pursue comfort care. they feel that she does not have any quality of life due to dementia, cirrhosis being bedbound and living in custodial care facility, they have elected to change to SOFTWARE SAL[employer] status. they understand this means antibiotics and fluid will be discontinued and focus will be on comfort with prn morphine, ativan and scopolomine Sepsis due to UTI/ bacteremia Acute kidney injury/AGMA metabolic encephalopathy thrombocytopenia - with concern for TTP dysphagia SVT Seizure disorder DVT prophylaxis: lovenox d/c due to thrombocytopenia, mechanical devices DNR/DNI attending - justin patient will require ongoing hospital stay for IV pain control, [facility] Time Spent With Patient Time: Total time managing care of this patient today ____ minutes. Quality Stroke Does the patient have a stroke diagnosis?: No VTE Prior VTE?: No VTE Risk Level:: Medical - moderate - high VTE Device Contraindication: Treatment Not Indicated VTE Drug Contraindication: N/A - Med Ordered
[2023-05-07] MEDS: Scopolamine 1.5 MG PATCH.TD.3 TRANSDERMA (16:42)
[2023-05-07] MEDS: Morphine Sulfate 2 MG/ML CARTRIDGE IVPUSH (16:42)
[2023-05-07] MEDS: 0.9 % Sodium Chloride Flush 3 ML SYRINGE IVFLUSH (20:01)
[2023-05-07 22:51] LABS: Haptoglobin 263 MG/DL ((30-200))
[2023-05-08] MEDS: levETIRAcetam in NaCl (iso-os) 500 MG/100 ML PIGGYBACK 400 MG IV (03:05)
[2023-05-08 04:00] VITALS: BP 165/85; PULSE 119; RESP 16; TEMP 36.8; O2SAT 93
[2023-05-08] MEDS: Morphine Sulfate 2 MG/ML CARTRIDGE IVPUSH (04:39)
[2023-05-08 08:00] VITALS: BP 137/83; PULSE 115; RESP 18; TEMP 36.5
[2023-05-08 08:28] LABS: Albumin Level 2.2 g/dL (3.5-5.0); Anion Gap 14 (12-20); Blood Urea Nitrogen 39 mg/dL (9-16); Calcium 7.8 mg/dL (8.4-10.2); Carbon Dioxide 21 mmol/L (22-29); Chloride 118 mmol/L (96-108); Estimated Glomerular Filt Rate 56; Glucose Random 93 mg/dL (60-115); Magnesium 1.9 mg/dL (1.6-2.6); Phosphorus 2.3 mg/dL (2.7-4.5); Sodium 150 mmol/L (135-145); Triglycerides 150 mg/dL (<150)
[2023-05-08] MEDS: 0.9 % Sodium Chloride Flush 3 ML SYRINGE IVFLUSH (09:12)
--- NOTE | 2023-05-08 10:23 | PM.NEUROCN ---
History of Present Illness Data of Consult Service Date: 05/08/23 Primary Care Provider: Maximus Silverio MD HPI Reason for consult: Seizure disorder 82 years old woman who apparently carried diagnosis of seizure disorder and alcohol abuse, details unclear. While she was in hospital she could not take p.o. medicines including her antiepileptics and this consultation was requested for alternate. I talked to hospitalist over the weekend suggested switching to intravenous Keppra. There was no evidence of any recent seizure-like episode. Review of Systems Review of Systems: No recent seizure-like episode PMFSH Past Medical History Medical History Alcoholic cirrhosis Epilepsy Personal history of nicotine dependence Tubulovillous adenoma of colon (~2001) Right patella fracture (~2011) Hyperlipidemia Essential hypertension Alcohol use disorder Distal radius fracture, right (~2020) Osteoporosis (~2017) Anxiety Family History Family History Other Substance use disorder Surgical History Surgical History History of tonsillectomy (~1943) History of appendectomy History of surgery on right wrist (~2020) History of cystoscopy (~2001) History of colonoscopy (~2001) History of bronchoscopy (~2009) History of hysterectomy History of right knee surgery (~2011) Social History Social History Household Members: None Housing: Snf Do you presently have visiting nurse or other home services: No Unable to assess alcohol history related to: Unable to respond Alcohol intake: never Patient Tobacco Use Status: Never used Tobacco Cigarette Packs Per Day: 0.5 e-Cigarette/Vaping Use: Never Used Second Hand Smoke Exposure: No Advance Directives Date on File: 08/05/22 service: No Current occupational status: retired Current occupation: Right Handed Cognitive needs: No Hearing needs: No Vision needs: No Meds Allergies Allergy/AdvReac Type Severity Reaction Status Date / Time atorvastatin Allergy Mild Swelling Verified 09/07/22 11:18 alendronate sodium [Fosamax] Allergy Unknown unknown Verified 09/07/22 11:18 amitriptyline [From Elavil] AdvReac Mild Hallucinati Verified 09/07/22 11:18 ons ciprofloxacin [Cipro] AdvReac Unknown blister Verified 09/07/22 11:18 lisinopril AdvReac Unknown throat Verified 09/07/22 11:18 swelling, cough Active Medications: Current Medications Acetaminophen (Acetaminophen Supp 650 Mg Supp.Rect) 650 mg CO Q6H PRN PRN Reason: Pain, Mild (Pain Scale 1-3) Last Admin: 05/05/23 02:27 Dose: 650 mg Bisacodyl (Bisacodyl 10 Mg Supp.Rect) 10 mg CO DAILY PRN PRN Reason: Constipation Ceftriaxone Sodium 2 gm/ (Sodium Chloride) 50 mls @ 100 mls/hr IV Q24H [facility] Last Infusion: 05/07/23 13:52 Dose: Infused Levetiracetam (Keppra) 500 mg in 100 mls @ 400 mls/hr IV Q12H [facility] Last Infusion: 05/08/23 03:37 Dose: Infused Lorazepam (Lorazepam 2 Mg/Ml Vial) 0.5 mg IVPUSH Q6H PRN PRN Reason: anxiety/restlessness Morphine Sulfate (Morphine Sulfate 2 Mg/Ml Cartridge) 2 mg IVPUSH Q4H PRN PRN Reason: Discomfort/Shortness of breath Last Admin: 05/08/23 04:39 Dose: 2 mg Polyethylene Glycol (Polyethylene Glycol 3350 17 Gm Powd.Pack) 17 gm PO DAILY PRN PRN Reason: Constipation Scopolamine (Scopolamine 1.5 Mg Patch.Td.3) 1.5 mg TRANSDERMA Q72H [facility] Last Admin: 05/07/23 16:42 Dose: 1.5 mg Senna (Sennosides 8.6 Mg Tablet) 8.6 mg PO BID [facility] Last Admin: 05/08/23 08:10 Dose: Not Given Sodium Chloride (0.9 % Sodium Chloride Flush 3 Ml Syringe) 3 ml IVFLUSH QSHIFT [facility] Last Admin: 05/08/23 09:12 Dose: 3 ml Home Medications Medication Instructions Recorded Confirmed Last Taken Type acetaminophen 325 mg tablet 650 mg PO Q6H PRN Pain 08/05/22 05/04/23 Unknown History (Tylenol) bisacodyl 10 mg rectal suppository 10 mg CO DAILY PRN Constipation 08/05/22 05/04/23 Unknown History folic acid 1 mg tablet 1 mg PO DAILY 08/05/22 05/04/23 Unknown History lacosamide 200 mg tablet 200 mg PO BID 08/05/22 05/04/23 Unknown History magnesium hydroxide 400 mg/5 mL 5 ml PO DAILY PRN Constipation 08/05/22 05/04/23 Unknown History oral suspension (Milk of Magnesia) melatonin 3 mg tablet 6 mg PO BEDTIME PRN Insomnia 08/05/22 05/04/23 Unknown History polyethylene glycol 3350 17 gram 17 g PO DAILY PRN Constipation 08/05/22 05/04/23 Unknown History oral powder packet (Miralax) pyridoxine (vitamin B6) 50 mg 50 mg PO DAILY 08/05/22 05/04/23 Unknown History tablet sennosides 8.6 mg tablet 8.6 mg PO BID 08/05/22 05/04/23 Unknown History topiramate 50 mg tablet 75 mg PO BID 08/05/22 05/05/23 Unknown History Saccharomyces boulardii 250 mg 250 mg PO BID 05/04/23 05/04/23 Unknown History capsule ondansetron HCl 4 mg tablet 4 mg PO Q8H PRN Nausea 05/04/23 05/04/23 Unknown History potassium chloride 10 mEq 10 meq PO DAILY 05/04/23 05/04/23 Unknown History tablet,extended release Physical Exam Vital Signs: Vital Signs: Last Vital Signs Temp 97.7 F 05/08/23 08:00 Pulse 115 H 05/08/23 08:00 Resp 18 05/08/23 08:00 BP 137/83 05/08/23 08:00 Pulse Ox 93 05/08/23 04:00 O2 Del Method Room Air 05/08/23 04:00 BMI result Body Mass Index 20.8 Neuro: Other: Alert and awake with flat to wake affect. She speaks some but generally keeps quite. She is following one-step commands. Face is symmetrical. Visual pina are full. She barely lift it each arm up and wiggled her toes. Deep tendon reflexes were trace to absent with flat plantars. Results Labs 05/07/23 07:00 05/08/23 08:02 Labs: BMP 05/08/23 08:02 Sodium 150 H Potassium 3.0 L Chloride 118 H Carbon Dioxide 21 L BUN 39 H Creatinine 0.96 Calcium 7.8 L Liver Function 09/25/23 Range/Units 08:02 Albumin 2.2 L (3.5-5.0) g/dL [id number] cerebral atrophy more so frontal low with moderate microvascular ischemic changes were noted on head CT. Microbiology Microbiology Results: Microbiology 05/05/23 Unknown Urine clean catch - Urine de la vega top Urine Culture - Preliminary Proteus mirabilis Gram positive cocci 05/05/23 14:03 Blood - Venous Blood Culture - Preliminary No growth after 48 hours. 05/05/23 14:03 Blood - Venous Blood Culture - Preliminary No growth after 48 hours. 05/04/23 21:49 Blood - Venous Blood Culture - Preliminary Proteus mirabilis Enterococcus/Streptococcus sp 05/04/23 21:04 Blood - Venous Blood Culture - Final Proteus mirabilis Assessment and Plan (1) Epilepsy: Status: Acute 82 years old woman with diagnosis of seizure disorder has significant thrombocytopenia. Most antiepileptics including topiramate, lacosamide, and levetiracetam can impact blood cell count. In this type of patients, it is always difficult to pick of the right medicine. After reviewing side effects of these medicines, may be a better choice for her is phenobarbital. I would suggest holding all her antiepileptics, doing an EEG, and if needed treating her with phenobarbital, which can be given both p.o. and intravenously. If needed, starting dose of 20 mg twice a day can be started. Time Spent With Patient Time: Total time managing care of this patient today ____ minutes. Procedures Date of Service Date of Service: 05/08/23
--- NOTE | 2023-05-08 11:18 | MHC.CM.PN ---
pt dcd back to [facility] today at 1
[2023-05-08 12:00] VITALS: BP 134/85; PULSE 108; RESP 18; TEMP 36.5; O2SAT 89
--- NOTE | 2023-05-08 12:08 | P.DS_ITS ---
DS: Providers Provider Date of Service: 05/08/23 Date of admission: 05/05/23 01:14 Primary care physician: Maximus Silverio MD Consults: 05/06/23 10:51 Consult to Infectious Diseases Routine Consulting Provider: [facility] Infectious Disease Reason for consultation: bacteremia Has provider been notified: No 05/06/23 11:02 Consult to Nephrology Routine Consulting Provider: Indra Tucker Reason for consultation: daisy Has provider been notified: No 05/06/23 14:55 Consult to Neurology Routine Consulting Provider: [facility] Reason for consultation: h/o seizure, npo unable to take baseline meds ?recs Has provider been notified: No 05/07/23 08:24 Consult to Hematology / Oncology Routine Consulting Provider: Renny Epstein Reason for consultation: thrombocytopenia Has provider been notified: No DS: Diagnosis Discharge Diagnosis (1) Epilepsy: Status: Acute DS: Summary Hospital Course Hospital Course: From H&p on day of admission This is a 82-year-old female with pertinent history of alcohol use disorder, seizure disorder, mood disorder was sent to the emergency department for evaluation of increased confusion. Unable to obtain history from the patient. History obtained from ER provider and chart review. Patient does have a history of frequent UTIs in the past. Patient was found to be febrile and tachycardic in the ER. Unable to obtain review of systems. Patient was admitted to the hospital for sepsis secondary to UTI, DAISY, thrombocytopenia and lethargy. She was started on IV ceftriaxone for management of UTI. Urine culture is pending. Blood cultures returned positive for Proteus mirabilis and Enterococcus/Streptococcus sp, sensitivities pending at this time. vancomycin was added to her regimine. Infectious Disease consult has been placed but she has not been evaluated at this time. Patient was also admitted with acute kidney injury. Creatinine on arrival was 2.63, with IV fluid creatinine has begun to trend down to 1.48. Bicarbonate level was low at 12 and therefore bicarb was added to her IV fluid with improvement to bicarb of 20 at which time her IVF was changed to LR. In workup for metabolic acidosis, lactic acid was negative, beta hydroxybutyrate was elevated at 3.41 indicating likely starvation ketosis. PPN was initiated 05/07. Patient was noted to have thrombocytopenia on admission (evening 05/04)with a platelet count of 103. on 05/05 platelets dropped to 55, she had received 1 dose of Lovenox overnight the previous night and then Lovenox was discontinued. HIT panel was obtained and is pending at this time. 05/06 platelets remained low at 41. There was no evidence of DIC or hemolysis. On 05/07 platelets dropped further to 20 and shistocytes were noted on peripheral smear. It was determined that the patient would likely benefit from plasmaphoresis for TTP and transfer to tertiary care facility was discussed with family who was agreeable. [id number] ordered . one unit of FFP was given 05/07. patient has a history of dementia and is a LTC resident at [facility] in [place], [place]. She was awake, alert and confused and bedbound at baseline according to her HCP. she failed swallow evaluation and was made NPO. her seizure medications were placed on hold (vimpat and topomax) and she was transitioned to IV keppra. no seizure activity has been noted. After a long discussion the family decided that they did not want to transfer her to a tertiary facilty and between the patient and her family they decided to make her comfort measures only. Therefore, [facility] with medication for pain, anxiety and to decrease secretions. Time Spent with Patient Time attestation: Total time managing care of this patient today ____ minutes. Discharge coordination time: Greater than 30 minutes Quality: Safe Use of Opioids Does Pt have an Active Cancer Diagnosis on the Problem List?: No Quality: Stroke Does the patient have a stroke diagnosis?: No Physical Exam Vital Signs: Vital Signs: Last Vital Signs Temp 97.7 F 05/08/23 12:00 Pulse 108 H 05/08/23 12:00 Resp 18 05/08/23 12:00 BP 134/85 05/08/23 12:00 Pulse Ox 89 L 05/08/23 12:00 O2 Del Method Room Air 05/08/23 12:00 BMI result Body Mass Index 20.8 Appearing in no acute distress head is normocephalic atraumatic eyes pupils are PERRLA sclera is anicteric mouth throat mucous membranes are intact and moist neck is supple no lymphadenopathy, no JVD noted lung sounds are clear to auscultation heart regular rate rhythm, clear S1, S2 positive bowel sounds, abdomen is soft, nontender neuro patient is alert x3, no focal deficits DS: Data Data Completed and Pending Labs on day of discharge: Laboratory Results - last 24 hr 05/06/23 05/07/23 05/07/23 17:17 07:00 12:09 Smear Path Review SEE NOTE Haptoglobin 263 H [id number] Activity Intrp [id number] Inhibitor Sodium Potassium Chloride Carbon Dioxide Anion Gap BUN Creatinine Estim Creat Clear Calc Estimated GFR Random Glucose Calcium Phosphorus Magnesium Albumin Triglycerides Random Vancomycin 10.9 L 05/08/23 05/08/23 08:02 10:11 Smear Path Review Haptoglobin [id number] Activity Intrp TNP [id number] Inhibitor TNP Sodium 150 H Potassium 3.0 L Chloride 118 H Carbon Dioxide 21 L Anion Gap 14 BUN 39 H Creatinine 0.96 Estim Creat Clear Calc 38.0 Estimated GFR 56 Random Glucose 93 Calcium 7.8 L Phosphorus 2.3 L Magnesium 1.9 Albumin 2.2 L Triglycerides 150 H Random Vancomycin Preliminary micro results at discharge 05/05/23 Unknown Urine Culture - Preliminary Urine clean catch - Urine de la vega top Proteus mirabilis Gram positive cocci 05/05/23 14:03 Blood Culture - Preliminary Blood - Venous No growth after 48 hours. 05/05/23 14:03 Blood Culture - Preliminary Blood - Venous No growth after 48 hours. Discharge Plan Discharge Anticipated Discharge Date/Time: 05/08/23 11:11 Patient Disposition: er SNF Discharge Diagnosis: sepsis secondary to UTI/bacteremia proteus mirabilis and enterococcus/streptococcus sp bacteremia DAISY thrombocytopenia with concern for TTP encephalopathy with underlying dementia [facility]errals: [facility] [Other] - 1 Week Maximus Silverio MD [Primary Care Provider] - 1 Week Discharge Medications: New morphine concentrate 100 mg/5 mL (20 mg/mL) solution 20 mg PO Q4H PRN (Reason: pain) Qty: 30 0RF Rx Instructions: Partial Fill upon patient request. lorazepam [Lorazepam Intensol] 2 mg/mL concentrate 1 mg sublingual Q8H PRN (Reason: agitation) Qty: 30 0RF scopolamine base 1 mg over 3 days patch 3 day 1 patch transdermal Q72H Qty: 4 0RF Continued bisacodyl 10 mg Suppository 10 mg GA DAILY PRN (Reason: Constipation) Discontinued sennosides 8.6 mg Tablet 8.6 mg PO BID acetaminophen [Tylenol] 325 mg Tablet 650 mg PO Q6H PRN (Reason: Pain) polyethylene glycol 3350 [Miralax] 17 gram Powder In Packet 17 g PO DAILY PRN (Reason: Constipation) melatonin 3 mg Tablet 6 mg PO BEDTIME PRN (Reason: Insomnia) magnesium hydroxide [Milk of Magnesia] 400 mg/5 mL Suspension 5 ml PO DAILY PRN (Reason: Constipation) pyridoxine (vitamin B6) 50 mg Tablet 50 mg PO DAILY folic acid 1 mg Tablet 1 mg PO DAILY topiramate 50 mg Tablet 75 mg PO BID lacosamide 200 mg Tablet 200 mg PO BID omeprazole 40 mg capsule,delayed release(DR/EC) 40 mg PO BID Qty: 60 0RF ondansetron HCl 4 mg Tablet 4 mg PO Q8H PRN (Reason: Nausea) potassium chloride 10 mEq Tablet Extended Release 10 meq PO DAILY Saccharomyces boulardii 250 mg Capsule 250 mg PO BID No Action (DME) walker with wheels, seat & brakes See Rx Instructions .Route .MEDSUPPLY Qty: 1 0RF Rx Instructions: daily use Discharge Orders: Discharge Order (Routine); Ordered 05/08/23 Ordered By: Cassidy Hearn Diet: if able to eat, may eat Activity on Discharge: As tolerated Stand Alone Forms: Patient Portal Discharge page Care Plan Goals: see below Health Concerns: thrombocytopenia with concern for TTP DAISY sepsis secondary to UTI bacteremia - blood growing proteus mirabilis and enterococcus/streptococcus sp (Sensitivities pending) metabolic encephalopathy with underlying dementia dysphagia - failed swallow evaluation Plan of Treatment: Changed to [employer] per family wishes. [facility] Assessment: See discharge summary Discharge Date/Time: 05/08/23 13:35
[2023-05-08 12:41] LABS: Vancomycin Trough 12.8 mcg/mL (10.0-20.0)
--- NOTE | 2023-05-08 14:30 | MHC.SLORD ---
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
[2023-05-09 12:33] LABS: HIT-Patient Optical Density 0.068 OD UNITS; Heparin Induced Plt Ab Negative (Negative)
== END 2023-05-08 13:35 | disposition skilled nursing facility (03) | DRG 871 ==
LOC: HO.ED 21:42 → HO.EDOVER 05-05 01:18 → HO.S3 05-05 02:15
PROVIDERS: Physician Assistant Medical; Admitting Provider Student in an Organized Health Care Education/Training Program; Emergency Provider Internal Medicine; PCP Family Medicine; Visit Provider Nurse Practitioner Acute Care
DX: A41.9 Sepsis, unspecified organism (principal); G93.41 Metabolic encephalopathy; M31.19 Other thrombotic microangiopathy; N39.0 Urinary tract infection, site not specified; E87.21 Acute metabolic acidosis; N17.9 Acute kidney failure, unspecified; I47.20 Ventricular tachycardia, unspecified; F10.97 Alcohol use, unspecified with alcohol-induced persisting dementia; Z66 Do not resuscitate; R13.10 Dysphagia, unspecified; D64.9 Anemia, unspecified; E78.5 Hyperlipidemia, unspecified; B96.4 Proteus (mirabilis) (morganii) as the cause of diseases classified elsewhere; B95.2 Enterococcus as the cause of diseases classified elsewhere; B95.5 Unspecified streptococcus as the cause of diseases classified elsewhere; G40.909 Epilepsy, unspecified, not intractable, without status epilepticus; Z87.440 Personal history of urinary (tract) infections; Z74.01 Bed confinement status; Z87.891 Personal history of nicotine dependence; Z20.822 Contact with and (suspected) exposure to COVID-19; Z79.899 Other long term (current) drug therapy
CPT/HCPCS: 36415; 71045; 80048; 80053; 80202; 81001; 82010; 82040; 82140; 82550; 82803; 83010; 83605; 83615; 83735; 84100; 84133; 84300; 84478; 85007; 85025; 85027; 85335; 85384; 85397; 85610; 85730; 86022; 86850; 86900; 86901; 87040; 87077; 87086; 87088; 87147; 87186; 87205; 87635; 92610; 93005; 99285; J0696; J1650; J1953; J2270; J3370; P9017

== ENCOUNTER → 2023-05-05 01:14 | Outpatient (BNV) | payer MEDICARE, MEDICAID, SELFPAY | PROVIDERS: Admitting Provider Student in an Organized Health Care Education/Training Program; Emergency Provider Internal Medicine; PCP Family Medicine; Visit Provider Student in an Organized Health Care Education/Training Program | DX: A41.9 Sepsis, unspecified organism (principal); N17.9 Acute kidney failure, unspecified; D69.6 Thrombocytopenia, unspecified; D64.9 Anemia, unspecified; N39.0 Urinary tract infection, site not specified | CPT/HCPCS: 99222; 99233; 99239; 99499 ==